=== PATIENT | female | born 1945 | race Caucasian/White ===

== ENCOUNTER 2018-08-16 18:11 | Emergency (ER) | payer MEDICARE, MEDICAID ==
[~2018-08-16] VITALS: Ht 154.9 cm; Wt 76.0 kg
[~2018-08-16 18:11] MED LIST: AMLO10TA13 PO; ATOR40TA PO; BIMA5DRO4; BRIM5DRO2; CHOL200012 PO; CLOP75TA15 PO; GLIP5TAB13 PO; LOSA100T15 PO
[2018-08-16 18:31] VITALS: BP 216/91
[2018-08-16] MEDS ORDERED: SULF1TAB49 PO (18:53)
== END 2018-08-16 19:38 | disposition home or self-care (01) ==
LOC: ER 18:11
DX: L02.413 Cutaneous abscess of right upper limb (principal); Z88.6 Allergy status to analgesic agent; Z79.899 Other long term (current) drug therapy
CPT/HCPCS: 10060; 99283

== ENCOUNTER 2019-09-02 03:29 | Emergency (ER) | payer MEDICARE, MEDICAID ==
[~2019-09-02] VITALS: Ht 157.5 cm; Wt 74.0 kg
[~2019-09-02 03:29] MED LIST changes: -LOSA100T15 PO; +LOSA100T57 PO
[2019-09-02 03:31] VITALS: BP 161/85
[2019-09-02] MEDS ORDERED: GABA-532 PO (04:03)
[2019-09-02] MEDS ORDERED: VALA10002 PO (04:03)
[2019-09-02] MEDS ORDERED: PRED20TA PO (04:03)
[2019-09-02] MEDS ORDERED: gabapentin 400mg capsule PO ONE (04:10)
[2019-09-02] MEDS ORDERED: dexamethasone 4mg tablet PO ONE (04:10)
== END 2019-09-02 04:35 | disposition home or self-care (01) ==
LOC: ER 03:30
DX: B02.9 Zoster without complications (principal); R53.1 Weakness; Z88.6 Allergy status to analgesic agent; Z79.899 Other long term (current) drug therapy
CPT/HCPCS: 99284

== ENCOUNTER 2021-05-27 07:17 | Inpatient (IN) | payer MEDICARE, MEDICAID ==
[~2021-05-27] VITALS: Ht 157.5 cm; Wt 82.0 kg
[~2021-05-27 07:17] MED LIST changes: +GABA-532 PO; +VALA10002 PO
[2021-05-27] MEDS ORDERED: dexamethasone sod phosphate 10mg/ml inj IV STA (07:38)
[2021-05-27] MEDS ORDERED: albuterol 2.5 MG/3 ML nebule NEB ONE (07:40)
[2021-05-27 08:16] LABS: BASOPHILS # (AUTO) 0.1 X10'3 (0-0.2); BASOPHILS % (AUTO) 0.8 % (0-1); EOSINOPHILS # (AUTO) 0.2 X10'3 (0-0.9); EOSINOPHILS % (AUTO) 2.2 % (0-6); HEMATOCRIT 32.8 % (35.0-45.0); HEMOGLOBIN 10.9 g/dl (12.0-16.0); LYMPHOCYTES % (AUTO) 13.5 % (21-51); MEAN CORPUSCULAR HEMOGLOBIN 30.7 PG (27.0-31.0); MEAN CORPUSCULAR HGB CONC 33.4 g/dL (33.0-36.5); MEAN CORPUSCULAR VOLUME 91.9 FL (78-98); MEAN PLATELET VOLUME 6.4 FL (7.4-10.4); MONOCYTES # (AUTO) 0.6 X10'3 (0-0.9); MONOCYTES % (AUTO) 7.8 % (2-12); NEUTROPHILS # (AUTO) 5.4 X10'3 (1.8-7.7); NEUTROPHILS % (AUTO) 75.7 % (42-75); PLATELET COUNT 555 X10'3 (140-440); RED BLOOD COUNT 3.57 X10'6 (4.20-5.60); RED CELL DISTRIBUTION WIDTH 14.7 % (11.5-14.5); WHITE BLOOD COUNT 7.1 X10'3 (4.5-11.0)
[2021-05-27 08:35] LABS: ALBUMIN 3.3 G/DL (3.4-5.0); ANION GAP 11 (8-16); BLOOD UREA NITROGEN 22 MG/DL (7-18); BUN/CREATININE RATIO 13.3 (6.6-38.0); CALCIUM 8.5 MG/DL (8.5-10.1); CHLORIDE 108 MMOL/L (99-107); CREATININE 1.65 MG/DL (0.40-0.90); GLUCOSE 147 MG/DL (70-104); POTASSIUM 3.9 MMOL/L (3.5-5.1); SODIUM 143 MMOL/L (135-145); TOTAL CARBON DIOXIDE 23.6 MMOL/L (24-32); TROPONIN I < 0.04 NG/ML (0.0-0.05); eGFR 30 ML/MIN
[2021-05-27] MEDS ORDERED: normal saline 1000ml 1,000 ML IV ONE (08:40)
[2021-05-27] MEDS ORDERED: CefTRIAXone/D5W-Rocephin 1gm 50 ML IV ONE ×2 (08:40→09:36)
[2021-05-27] MEDS ORDERED: ondansetron/PF 4mg/2ml inj IV PRN (09:25)
[2021-05-27] MEDS ORDERED: morphine 2 MG/ML inj. syringe IV PRN (09:25)
[2021-05-27] MEDS ORDERED: acetaminophen 325mg tablet PO PRN ×2 (09:25)
[2021-05-27] MEDS ORDERED: potassium Cl 40MEQ/1/2NS 520ml 520 ML IV PRN ×2 (09:25)
[2021-05-27] MEDS ORDERED: HYDROcodone/acetaminophen 5mg/325mg tablet PO PRN (09:25)
[2021-05-27] MEDS ORDERED: magnesium 4gm in 100ml NS 100 ML IV PRN (09:25)
[2021-05-27] MEDS ORDERED: magnesium 2GM in 50ml NS 50 ML IV PRN (09:25)
[2021-05-27] MEDS ORDERED: magnesium Cl slow-release 64mg tablet PO PRN (09:25)
[2021-05-27] MEDS ORDERED: potassium Cl 20 mEq SR tablet PO PRN ×2 (09:25)
[2021-05-27] MEDS ORDERED: CefTRIAXone 2gm/D5W 50ml BAG 50 ML IV SCH (09:25)
[2021-05-27] MEDS ORDERED: metoprolol tartrate 25mg tablet PO ONE (09:35)
[2021-05-27] MEDS: furosemide 40mg/4ml inj IV SCH (10:07)
[2021-05-27] MEDS: azithromycin/NS 500mg/250ml 250 ML IV SCH (10:07)
[2021-05-27] MEDS: nicotine 14mg patch - 24hr TD SCH (10:12)
[2021-05-27] MEDS ORDERED: AMLO5TAB16 PO (10:14)
[2021-05-27] MEDS ORDERED: ALBU18HF2 PO (10:14)
[2021-05-27] MEDS ORDERED: LOSA1TAB41 PO (10:14)
[2021-05-27] MEDS ORDERED: ATOR-2 PO (10:14)
[2021-05-27] MEDS ORDERED: CLOP75TA34 PO (10:14)
[2021-05-27] MEDS ORDERED: FURO20TA4 PO (10:14)
[2021-05-27] MEDS ORDERED: ALLO100T PO (10:14)
[2021-05-27] MEDS ORDERED: DOXA2TAB6 PO (10:14)
[2021-05-27] MEDS ORDERED: SOTA80TA73 PO (10:14)
--- NOTE | 2021-05-27 10:14 | NUR ---
PATIENT STATES SHE IS MORE SOB AND HAD A COUGHING FIT. SP02 LOW 80S. O2 INCREASED TO 6L. RT CALLED FOR BREATHING TREATMENT AND LASIX ADMINISTERED.
[2021-05-27] MEDS ORDERED: POTA8TAB58 PO (10:15)
[2021-05-27 10:28] LABS: ABG BASE EXCESS -3.8 mmol/L (-2.0-2.0); ABG HCO3 21.3 mmol/L (22.0-26.0); ABG OXYGEN SATURATION 89.8 % (94-97); ABG PCO2 (T) 38.2 mmHg (32.0-45.0); ABG PO2 (T) 60.5 mmHg (75.0-100.0); ALLEN'S TEST POSITIVE; FCOHb 0.1 % (0.0-3.9); FLOW 5 L/min; FMetHb 0.2 % (0.0-1.5); FO2Hb 89.5 % (94-97); PATIENT TEMPERATURE 36.5; TOTAL HEMOGLOBIN 12.1 G/dl (12.0-16.0)
[2021-05-27] MEDS ORDERED: albuterol 2.5 MG/3 ML nebule NEB PRN ×2 (12:15→15:15)
[2021-05-27] MEDS ORDERED: CALC-97 PO (12:55)
[2021-05-27] MEDS ORDERED: CHOL100024 PO (12:55)
[2021-05-27] MEDS ORDERED: GLIP5TAB13 PO (12:55)
[2021-05-27] MEDS ORDERED: NICO-630 TOP (12:55)
[2021-05-27] MEDS ORDERED: ALBUTEROL INHALER 1 PUFF/90 MCG INHALER IH PRN (15:05)
--- NOTE | 2021-05-27 16:01 | NUR ---
Patient in room PCU 3024. I have received report from Jayashree ECHEVARRIA ED and had the opportunity to ask questions and assume patient care.
--- NOTE | 2021-05-27 18:15 | NUR ---
Problems reprioritized. Patient report given, questions answered & plan of care reviewed with Fabi ECHEVARRIA.
[2021-05-27 19:00] VITALS: BP 138/81
[2021-05-27] MEDS: K and/or MAG REPLACEMENT MC SCH (20:00)
[2021-05-27 20:02] LABS: HEMOGLOBIN A1C 7.6 % (4.5-6.2)
[2021-05-27] MEDS: lactobacillus rhamnosus 10,000 MMU CELLS/CAPSULE PO SCH (21:33)
[2021-05-27] MEDS: sotalol 80mg tablet PO SCH (21:34)
[2021-05-27] MEDS: doxazosin mesylate 2mg tablet PO SCH (21:34)
[2021-05-27] MEDS: heparin, porcine 5000 units/ml vial SQ SCH (21:35)
[2021-05-27 23:00] VITALS: BP 127/70
[2021-05-27 23:37] VITALS: BP 138/81
[2021-05-28 02:43] VITALS: BP 134/76
[2021-05-28 06:25] LABS: BASOPHILS % (AUTO) 0 % (0-1); EOSINOPHILS % (AUTO) 0 % (0-6); HEMATOCRIT 32.8 % (35.0-45.0); HEMOGLOBIN 10.9 g/dl (12.0-16.0); LYMPHOCYTES # (AUTO) 0.6 X10'3 (1.1-4.8); LYMPHOCYTES % (AUTO) 7.8 % (21-51); MEAN CORPUSCULAR HEMOGLOBIN 30.6 PG (27.0-31.0); MEAN CORPUSCULAR HGB CONC 33.2 g/dL (33.0-36.5); MEAN CORPUSCULAR VOLUME 92.2 FL (78-98); MEAN PLATELET VOLUME 6.8 FL (7.4-10.4); MONOCYTES # (AUTO) 0.3 X10'3 (0-0.9); MONOCYTES % (AUTO) 4.1 % (2-12); NEUTROPHILS # (AUTO) 6.3 X10'3 (1.8-7.7); NEUTROPHILS % (AUTO) 88.1 % (42-75); PLATELET COUNT 507 X10'3 (140-440); RED BLOOD COUNT 3.55 X10'6 (4.20-5.60); RED CELL DISTRIBUTION WIDTH 14.7 % (11.5-14.5); WHITE BLOOD COUNT 7.1 X10'3 (4.5-11.0)
[2021-05-28 06:29] LABS: ALANINE AMINOTRANSFERASE 31 U/L (12-78); ALBUMIN/GLOBULIN RATIO 0.9 (1.1-1.5); ALKALINE PHOSPHATASE 158 IU/L (46-116); ANION GAP 12 (8-16); ASPARTATE AMINO TRANSFERASE 15 U/L (10-37); BILIRUBIN,TOTAL 0.2 MG/DL (0.1-1.0); BLOOD UREA NITROGEN 27 MG/DL (7-18); BUN/CREATININE RATIO 16.8 (6.6-38.0); CALCIUM 8.4 MG/DL (8.5-10.1); CHLORIDE 108 MMOL/L (99-107); CREATININE 1.61 MG/DL (0.40-0.90); GLUCOSE 194 MG/DL (70-104); MAGNESIUM 2.2 MG/DL (1.5-2.4); POTASSIUM 4.3 MMOL/L (3.5-5.1); SODIUM 142 MMOL/L (135-145); TOTAL CARBON DIOXIDE 22.4 MMOL/L (24-32); TOTAL PROTEIN 6.3 G/DL (6.4-8.2); eGFR 31 ML/MIN
--- NOTE | 2021-05-28 06:43 | NUR ---
Patient in room PCU 3024. I have received report from Fabi ECHEVARRIA and had the opportunity to ask questions and assume patient care.
[2021-05-28 07:00] VITALS: BP 121/57
[2021-05-28] MEDS: furosemide 40mg/4ml inj IV SCH (07:38)
[2021-05-28] MEDS: atorvastatin 20mg tablet PO SCH (07:38)
[2021-05-28] MEDS: amLODIPine 5mg tablet PO SCH (07:39)
[2021-05-28] MEDS: heparin, porcine 5000 units/ml vial SQ SCH ×2 (07:39→20:17)
[2021-05-28] MEDS: allopurinol 100mg tablet PO SCH ×2 (07:39→07:40)
[2021-05-28] MEDS: clopidogrel 75mg tablet PO SCH (07:39)
[2021-05-28] MEDS: lactobacillus rhamnosus 10,000 MMU CELLS/CAPSULE PO SCH ×2 (07:39→19:57)
[2021-05-28] MEDS: nicotine 14mg patch - 24hr TD SCH (07:39)
[2021-05-28] MEDS: sotalol 80mg tablet PO SCH ×2 (07:40→20:17)
[2021-05-28] MEDS: CefTRIAXone 2gm/D5W 50ml BAG 50 ML IV SCH (07:40)
[2021-05-28] MEDS: nicotine 7mg patch - 24hr TD SCH (08:00)
[2021-05-28] MEDS: K and/or MAG REPLACEMENT MC SCH ×2 (08:00→20:00)
[2021-05-28] MEDS: azithromycin/NS 500mg/250ml 250 ML IV SCH (09:01)
--- NOTE | 2021-05-28 09:39 | NUR ---
Paged RT Re: Irene Contreras RM [id number]. Pt desating low 80s May we have a treatment please. Thank you Saba ECHEVARRIA [phone]
[2021-05-28] MEDS ORDERED: glucagon, human recombinant 1mg kit SUBCUT PRN (09:45)
[2021-05-28] MEDS ORDERED: dextrose ORAL solution 15 GM/59 ML bottle PO PRN ×2 (09:45)
[2021-05-28] MEDS ORDERED: MESSAGE TO PHARMACY PO ONE (09:45)
[2021-05-28] MEDS ORDERED: dextrose 50%-water 50ml dispensing syringe IV PRN ×2 (09:45)
[2021-05-28] MEDS: albuterol 2.5 MG/3 ML nebule NEB SCH ×5 (09:52→23:22)
--- NOTE | 2021-05-28 09:59 | NUR ---
Md at bedside with nurse and patient. MD aware of patient respiratory distress. On 8L nasal canula. Stats 88%. RT paged and in room. Nonrebreather placed on patient. New orders accuchecks. Hyper/hypoglycemic protocols. R/T related to history of DM2 and A1C 7.6. MD will input new medications. PT aware of patient respiratory distress when ambulating. Recommendation minimal PT until patient can tolerate it. MD will contact INR for possible drainage. Will continue to monitor.
--- NOTE | 2021-05-28 10:25 | NUR ---
Noted pt with T2DM, well controlled for age with A1c 7.6%. DM education not warranted at this time. Will continue to follow. Addendum: 05/28/21 at [address] Amended: Links added.
[2021-05-28 11:00] VITALS: BP 114/61
[2021-05-28] MEDS: methylPREDNISolone sod succ 125mg/2ml vial IV SCH ×2 (13:29→20:17)
[2021-05-28] MEDS ORDERED: ondansetron 4mg rapidly disintigrating tab PO PRN (14:00)
--- NOTE | 2021-05-28 17:59 | NUR ---
Problems reprioritized. Patient report given, questions answered & plan of care reviewed with Fabi ECHEVARRIA.
[2021-05-28 19:00] VITALS: BP 106/59
[2021-05-28] MEDS: insulin Lispro (HumaLOG) vial - multi-dose SQ SCH (19:52)
[2021-05-28] MEDS: doxazosin mesylate 2mg tablet PO SCH (20:17)
[2021-05-28] MEDS: insulin glargine (Lantus) pen - multi-dose SQ SCH (21:00)
[2021-05-28 23:00] VITALS: BP 134/71
[2021-05-29 03:00] VITALS: BP_SYST 108; BP_SYST 134; BP_DIAS 59; BP_DIAS 71
[2021-05-29] MEDS: albuterol 2.5 MG/3 ML nebule NEB SCH ×6 (03:26→23:50)
[2021-05-29 06:00] VITALS: BP 144/72
--- NOTE | 2021-05-29 06:30 | NUR ---
Patient in room PCU 3024. I have received report from Fabi ECHEVARRIA and had the opportunity to ask questions and assume patient care.
[2021-05-29 06:56] LABS: BASOPHILS % (AUTO) 0 % (0-1); EOSINOPHILS % (AUTO) 0 % (0-6); HEMATOCRIT 33.5 % (35.0-45.0); HEMOGLOBIN 11.1 g/dl (12.0-16.0); LYMPHOCYTES # (AUTO) 0.6 X10'3 (1.1-4.8); LYMPHOCYTES % (AUTO) 7.4 % (21-51); MEAN CORPUSCULAR HEMOGLOBIN 30.3 PG (27.0-31.0); MEAN CORPUSCULAR HGB CONC 33.1 g/dL (33.0-36.5); MEAN CORPUSCULAR VOLUME 91.5 FL (78-98); MEAN PLATELET VOLUME 6.7 FL (7.4-10.4); MONOCYTES # (AUTO) 0.1 X10'3 (0-0.9); MONOCYTES % (AUTO) 0.8 % (2-12); NEUTROPHILS # (AUTO) 7.7 X10'3 (1.8-7.7); NEUTROPHILS % (AUTO) 91.8 % (42-75); PLATELET COUNT 539 X10'3 (140-440); RED BLOOD COUNT 3.66 X10'6 (4.20-5.60); RED CELL DISTRIBUTION WIDTH 14.9 % (11.5-14.5); WHITE BLOOD COUNT 8.4 X10'3 (4.5-11.0)
[2021-05-29 07:01] LABS: ALANINE AMINOTRANSFERASE 35 U/L (12-78); ALBUMIN 3.3 G/DL (3.4-5.0); ALKALINE PHOSPHATASE 156 IU/L (46-116); ANION GAP 13 (8-16); ASPARTATE AMINO TRANSFERASE 15 U/L (10-37); BILIRUBIN,TOTAL 0.2 MG/DL (0.1-1.0); BLOOD UREA NITROGEN 38 MG/DL (7-18); CALCIUM 8.7 MG/DL (8.5-10.1); CHLORIDE 108 MMOL/L (99-107); CREATININE 1.65 MG/DL (0.40-0.90); GLUCOSE 199 MG/DL (70-104); MAGNESIUM 2.2 MG/DL (1.5-2.4); POTASSIUM 4.5 MMOL/L (3.5-5.1); SODIUM 144 MMOL/L (135-145); TOTAL CARBON DIOXIDE 22.9 MMOL/L (24-32); TOTAL PROTEIN 6.7 G/DL (6.4-8.2); eGFR 30 ML/MIN
[2021-05-29] MEDS: K and/or MAG REPLACEMENT MC SCH ×2 (08:00→20:00)
[2021-05-29] MEDS: CefTRIAXone 2gm/D5W 50ml BAG 50 ML IV SCH (08:18)
[2021-05-29] MEDS: amLODIPine 5mg tablet PO SCH (08:18)
[2021-05-29] MEDS: clopidogrel 75mg tablet PO SCH (08:19)
[2021-05-29] MEDS: lactobacillus rhamnosus 10,000 MMU CELLS/CAPSULE PO SCH ×2 (08:19→20:35)
[2021-05-29] MEDS: atorvastatin 20mg tablet PO SCH (08:20)
[2021-05-29] MEDS: allopurinol 100mg tablet PO SCH (08:21)
[2021-05-29] MEDS: nicotine 7mg patch - 24hr TD SCH (08:21)
[2021-05-29] MEDS: furosemide 40mg/4ml inj IV SCH (08:21)
[2021-05-29] MEDS: methylPREDNISolone sod succ 125mg/2ml vial IV SCH ×2 (08:21→20:38)
[2021-05-29] MEDS: heparin, porcine 5000 units/ml vial SQ SCH ×2 (08:21→20:37)
[2021-05-29] MEDS: insulin Lispro (HumaLOG) vial - multi-dose SQ SCH ×2 (09:04→14:01)
[2021-05-29] MEDS: azithromycin/NS 500mg/250ml 250 ML IV SCH (09:27)
[2021-05-29] MEDS: sotalol 80mg tablet PO SCH ×2 (09:50→20:36)
[2021-05-29] MEDS: nicotine 14mg patch - 24hr TD SCH (10:07)
[2021-05-29 11:00] VITALS: BP 117/73
[2021-05-29 15:00] VITALS: BP 127/70
[2021-05-29 15:19] LABS: D-DIMER 0.46 MG/L FEU (0-0.50)
--- NOTE | 2021-05-29 19:03 | NUR ---
Problems reprioritized. Patient report given, questions answered & plan of care reviewed with Jennifer ECHEVARRIA. Patient stable at transfer of care.
[2021-05-29] MEDS: doxazosin mesylate 2mg tablet PO SCH (20:35)
[2021-05-29] MEDS: insulin glargine (Lantus) pen - multi-dose SQ SCH (21:00)
[2021-05-29 22:00] VITALS: BP 141/64
[2021-05-30 02:00] VITALS: BP 132/60
--- NOTE | 2021-05-30 03:42 | NUR ---
Pt in bed resting no signs of distress noted will continue to monitor and report changes
[2021-05-30] MEDS: albuterol 2.5 MG/3 ML nebule NEB SCH ×6 (03:54→23:51)
[2021-05-30 06:00] VITALS: BP 134/75
--- NOTE | 2021-05-30 06:31 | NUR ---
Patient in room PCU 3024. I have received report from leah hall and had the opportunity to ask questions and assume patient care.
--- NOTE | 2021-05-30 06:34 | NUR ---
Problems reprioritized. Patient report given, questions answered & plan of care reviewed with Dipti ECHEVARRIA .
[2021-05-30 06:51] LABS: BASOPHILS % (AUTO) 0 % (0-1); EOSINOPHILS % (AUTO) 0 % (0-6); HEMATOCRIT 32.6 % (35.0-45.0); HEMOGLOBIN 10.9 g/dl (12.0-16.0); LYMPHOCYTES # (AUTO) 0.6 X10'3 (1.1-4.8); LYMPHOCYTES % (AUTO) 6.1 % (21-51); MEAN CORPUSCULAR HEMOGLOBIN 30.3 PG (27.0-31.0); MEAN CORPUSCULAR HGB CONC 33.3 g/dL (33.0-36.5); MEAN CORPUSCULAR VOLUME 90.9 FL (78-98); MEAN PLATELET VOLUME 6.9 FL (7.4-10.4); MONOCYTES # (AUTO) 0.1 X10'3 (0-0.9); MONOCYTES % (AUTO) 1.5 % (2-12); NEUTROPHILS % (AUTO) 92.4 % (42-75); PLATELET COUNT 499 X10'3 (140-440); RED BLOOD COUNT 3.59 X10'6 (4.20-5.60); RED CELL DISTRIBUTION WIDTH 14.7 % (11.5-14.5); WHITE BLOOD COUNT 9.8 X10'3 (4.5-11.0)
[2021-05-30 07:15] LABS: ALANINE AMINOTRANSFERASE 35 U/L (12-78); ALBUMIN 3.2 G/DL (3.4-5.0); ALKALINE PHOSPHATASE 142 IU/L (46-116); ANION GAP 12 (8-16); ASPARTATE AMINO TRANSFERASE 15 U/L (10-37); BILIRUBIN,TOTAL 0.2 MG/DL (0.1-1.0); BLOOD UREA NITROGEN 45 MG/DL (7-18); BUN/CREATININE RATIO 26.5 (6.6-38.0); CALCIUM 8.2 MG/DL (8.5-10.1); CHLORIDE 107 MMOL/L (99-107); GLUCOSE 181 MG/DL (70-104); MAGNESIUM 2.2 MG/DL (1.5-2.4); POTASSIUM 4.3 MMOL/L (3.5-5.1); SODIUM 142 MMOL/L (135-145); TOTAL CARBON DIOXIDE 22.7 MMOL/L (24-32); TOTAL PROTEIN 6.3 G/DL (6.4-8.2); eGFR 29 ML/MIN
[2021-05-30] MEDS: allopurinol 100mg tablet PO SCH (08:00)
[2021-05-30] MEDS: K and/or MAG REPLACEMENT MC SCH ×2 (08:00→20:10)
[2021-05-30] MEDS: CefTRIAXone 2gm/D5W 50ml BAG 50 ML IV SCH (08:31)
[2021-05-30] MEDS: atorvastatin 20mg tablet PO SCH (08:31)
[2021-05-30] MEDS: lactobacillus rhamnosus 10,000 MMU CELLS/CAPSULE PO SCH ×2 (08:32→19:53)
[2021-05-30] MEDS: clopidogrel 75mg tablet PO SCH (08:32)
[2021-05-30] MEDS: sotalol 80mg tablet PO SCH ×2 (08:32→19:53)
[2021-05-30] MEDS: amLODIPine 5mg tablet PO SCH (08:33)
[2021-05-30] MEDS: heparin, porcine 5000 units/ml vial SQ SCH ×2 (08:34→19:53)
[2021-05-30] MEDS: furosemide 40mg/4ml inj IV SCH ×2 (08:35→19:54)
[2021-05-30] MEDS: nicotine 14mg patch - 24hr TD SCH (08:36)
[2021-05-30] MEDS: methylPREDNISolone sod succ 125mg/2ml vial IV SCH ×2 (08:36→19:54)
[2021-05-30] MEDS: nicotine 7mg patch - 24hr TD SCH (08:37)
[2021-05-30] MEDS: insulin Lispro (HumaLOG) vial - multi-dose SQ SCH ×2 (09:33→13:44)
[2021-05-30 11:00] VITALS: BP 118/80
[2021-05-30] MEDS: azithromycin/NS 500mg/250ml 250 ML IV SCH (12:09)
[2021-05-30 15:00] VITALS: BP 118/80
[2021-05-30 18:00] VITALS: BP 134/57
--- NOTE | 2021-05-30 18:33 | NUR ---
Problems reprioritized. Patient report given, questions answered & plan of care reviewed with leah hall.
[2021-05-30] MEDS: doxazosin mesylate 2mg tablet PO SCH (20:07)
[2021-05-30] MEDS: insulin glargine (Lantus) pen - multi-dose SQ SCH (21:12)
[2021-05-30 22:00] VITALS: BP 108/74
[2021-05-31 02:00] VITALS: BP 128/65
[2021-05-31] MEDS: albuterol 2.5 MG/3 ML nebule NEB SCH ×3 (02:36→12:00)
[2021-05-31 06:00] VITALS: BP 126/65
--- NOTE | 2021-05-31 06:37 | NUR ---
Problems reprioritized. Patient report given, questions answered & plan of care reviewed with Dipti ECHEVARRIA.
--- NOTE | 2021-05-31 06:38 | NUR ---
Patient in room PCU 3024. I have received report fromWALE BEDOYA and had the opportunity to ask questions and assume patient care.
[2021-05-31 06:51] LABS: BASOPHILS % (AUTO) 0.1 % (0-1); EOSINOPHILS % (AUTO) 0 % (0-6); HEMATOCRIT 34.5 % (35.0-45.0); HEMOGLOBIN 11.6 g/dl (12.0-16.0); LYMPHOCYTES # (AUTO) 0.6 X10'3 (1.1-4.8); LYMPHOCYTES % (AUTO) 7.5 % (21-51); MEAN CORPUSCULAR HEMOGLOBIN 30.4 PG (27.0-31.0); MEAN CORPUSCULAR HGB CONC 33.5 g/dL (33.0-36.5); MEAN CORPUSCULAR VOLUME 90.8 FL (78-98); MEAN PLATELET VOLUME 7.1 FL (7.4-10.4); MONOCYTES # (AUTO) 0.2 X10'3 (0-0.9); MONOCYTES % (AUTO) 2.1 % (2-12); NEUTROPHILS # (AUTO) 7.7 X10'3 (1.8-7.7); NEUTROPHILS % (AUTO) 90.3 % (42-75); PLATELET COUNT 493 X10'3 (140-440); RED CELL DISTRIBUTION WIDTH 14.9 % (11.5-14.5); WHITE BLOOD COUNT 8.6 X10'3 (4.5-11.0)
[2021-05-31 07:31] LABS: ALANINE AMINOTRANSFERASE 42 U/L (12-78); ALBUMIN 3.4 G/DL (3.4-5.0); ALBUMIN/GLOBULIN RATIO 1.1 (1.1-1.5); ALKALINE PHOSPHATASE 142 IU/L (46-116); ANION GAP 14 (8-16); ASPARTATE AMINO TRANSFERASE 16 U/L (10-37); BILIRUBIN,TOTAL 0.2 MG/DL (0.1-1.0); BLOOD UREA NITROGEN 55 MG/DL (7-18); BUN/CREATININE RATIO 28.2 (6.6-38.0); CALCIUM 8.1 MG/DL (8.5-10.1); CHLORIDE 105 MMOL/L (99-107); CREATININE 1.95 MG/DL (0.40-0.90); GLUCOSE 163 MG/DL (70-104); MAGNESIUM 2.3 MG/DL (1.5-2.4); SODIUM 143 MMOL/L (135-145); TOTAL CARBON DIOXIDE 23.6 MMOL/L (24-32); TOTAL PROTEIN 6.6 G/DL (6.4-8.2); eGFR 25 ML/MIN
[2021-05-31] MEDS: azithromycin/NS 500mg/250ml 250 ML IV SCH (08:00)
[2021-05-31] MEDS: nicotine 7mg patch - 24hr TD SCH (08:00)
[2021-05-31] MEDS: nicotine 14mg patch - 24hr TD SCH (08:00)
[2021-05-31] MEDS: K and/or MAG REPLACEMENT MC SCH (08:00)
[2021-05-31] MEDS: methylPREDNISolone sod succ 125mg/2ml vial IV SCH (09:24)
[2021-05-31] MEDS: CefTRIAXone 2gm/D5W 50ml BAG 50 ML IV SCH (09:24)
[2021-05-31] MEDS: heparin, porcine 5000 units/ml vial SQ SCH (09:25)
[2021-05-31] MEDS: atorvastatin 20mg tablet PO SCH (09:27)
[2021-05-31] MEDS: clopidogrel 75mg tablet PO SCH (09:27)
[2021-05-31] MEDS: lactobacillus rhamnosus 10,000 MMU CELLS/CAPSULE PO SCH (09:27)
[2021-05-31] MEDS: amLODIPine 5mg tablet PO SCH (09:28)
[2021-05-31] MEDS: sotalol 80mg tablet PO SCH (09:28)
[2021-05-31] MEDS: allopurinol 100mg tablet PO SCH (09:29)
[2021-05-31] MEDS: furosemide 40mg/4ml inj IV SCH (09:29)
[2021-05-31 11:00] VITALS: BP 132/52
[2021-05-31] MEDS ORDERED: NUT.TX.GLUC.INTOLER,LAC-FR,SOY (GLUCERNA) 237 ML PO SCH (13:00)
--- NOTE | 2021-05-31 14:11 | NUR ---
Initial: Pt admit DX acute hypoxemic respiratory failure possibly r/t PNA and CHF, bilateral pleural effusions, HTN, and anemia of chronic disease per MD note. PO 50% initial SB6/carb controlled/heart healthy meals now declines to 25% meals past two days partially meeting needs. Pt is legally blind though requiring minimum assistance w/ meals per EMR. RD recommends Glucerna TIDWM for additional protein/kcals; MD notified. LBM 05/30 per EMR. Will continue to monitor for additional protein/kcal needs. Rec: 1. continue carb controlled/heart healthy/SB6 diet per MD; encourage PO 2. Glucerna TIDWM; pending MD verification in EMR; encourage PO 3. routine bowel care 4. scaled wt this admit; subsequent weekly wts Addendum: 05/31/21 at [address] Amended: Links added.
[2021-05-31] MEDS: insulin Lispro (HumaLOG) vial - multi-dose SQ SCH (14:40)
[2021-05-31 15:00] VITALS: BP 143/81
[2021-05-31] MEDS ORDERED: albuterol 2.5 MG/3 ML nebule NEB SCH (15:00)
--- NOTE | 2021-05-31 18:00 | NUR ---
report phoned to leah bravo @ [facility] pt transferred via gurney with anthony cargo with all belongings@1800
== END 2021-05-31 18:20 | DRG 193 ==
LOC: ER 07:18 → ED HOLD 09:31 → PCU 3S 15:55
PROVIDERS: ADMIT Internal Medicine; ATTEND Internal Medicine
PROC: 5A0945A Assistance with Respiratory Ventilation, 24-96 Consecutive Hours, High Flow/Velocity Cannula (ICD-10-PCS; principal; 2021-05-28)
DX: J18.9 Pneumonia, unspecified organism (principal); J96.01 Acute respiratory failure with hypoxia; N17.9 Acute kidney failure, unspecified; I31.3 Pericardial effusion (noninflammatory); I11.0 Hypertensive heart disease with heart failure; E11.9 Type 2 diabetes mellitus without complications; E78.5 Hyperlipidemia, unspecified; I50.813 Acute on chronic right heart failure; Z20.822 Contact with and (suspected) exposure to COVID-19; H54.8 Legal blindness, as defined in USA; I48.0 Paroxysmal atrial fibrillation; D64.9 Anemia, unspecified; F17.200 Nicotine dependence, unspecified, uncomplicated; Z79.01 Long term (current) use of anticoagulants; Z79.02 Long term (current) use of antithrombotics/antiplatelets; Z79.899 Other long term (current) drug therapy; Z88.6 Allergy status to analgesic agent; Z91.030 Bee allergy status; Z71.6 Tobacco abuse counseling
CPT/HCPCS: 36415; 36600; 71045; 71250; 76937; 80048; 80053; 82803; 82948; 83036; 83605; 83735; 83880; 84145; 84484; 85018; 85025; 85379; 87040; 87081; 87635; 93005; 93306; 94640; 94760; 96374; 96375; 97110; 97112; 97161; 97530; 99291; C9803; G0378; J0456; J0696; J1100; J1644; J1815; J1940; J2930; J7030

== ENCOUNTER 2021-07-28 04:50 | Inpatient (IN) | payer MEDICARE, MEDICAID ==
[~2021-07-28] VITALS: Ht 165.1 cm; Wt 73.2 kg
[~2021-07-28 04:50] MED LIST changes: +ALBU18HF2 PO; +ALLO100T PO; -AMLO10TA13 PO; +AMLO5TAB16 PO; +ATOR-2 PO; -ATOR40TA PO; -BIMA5DRO4; -BRIM5DRO2; +CALC-97 PO; +CHOL100024 PO; -CHOL200012 PO; -CLOP75TA15 PO; +CLOP75TA34 PO; +DOXA2TAB6 PO; +FURO20TA4 PO; -GABA-532 PO; -LOSA100T57 PO; +LOSA1TAB41 PO; +NICO-630 TOP; +POTA8TAB58 PO; +SOTA80TA73 PO; -VALA10002 PO
[2021-07-28 06:46] LABS: BASOPHILS # (AUTO) 0.1 X10'3 (0-0.2); EOSINOPHILS # (AUTO) 0.1 X10'3 (0-0.9); EOSINOPHILS % (AUTO) 1.5 % (0-6); HEMOGLOBIN 9.4 g/dl (12.0-16.0); LYMPHOCYTES # (AUTO) 0.8 X10'3 (1.1-4.8); LYMPHOCYTES % (AUTO) 10.4 % (21-51); MEAN CORPUSCULAR HEMOGLOBIN 29.1 PG (27.0-31.0); MEAN CORPUSCULAR HGB CONC 33.4 g/dL (33.0-36.5); MEAN PLATELET VOLUME 6.6 FL (7.4-10.4); MONOCYTES # (AUTO) 0.6 X10'3 (0-0.9); MONOCYTES % (AUTO) 7.6 % (2-12); NEUTROPHILS # (AUTO) 5.8 X10'3 (1.8-7.7); NEUTROPHILS % (AUTO) 79.5 % (42-75); PLATELET COUNT 400 X10'3 (140-440); RED BLOOD COUNT 3.22 X10'6 (4.20-5.60); RED CELL DISTRIBUTION WIDTH 16.5 % (11.5-14.5); WHITE BLOOD COUNT 7.3 X10'3 (4.5-11.0)
[2021-07-28 07:11] LABS: ALANINE AMINOTRANSFERASE 11 U/L (12-78); ALBUMIN 2.4 G/DL (3.4-5.0); ALBUMIN/GLOBULIN RATIO 0.9 (1.1-1.5); ALKALINE PHOSPHATASE 118 IU/L (46-116); ANION GAP 13 (8-16); ASPARTATE AMINO TRANSFERASE 15 U/L (10-37); BILIRUBIN,TOTAL 0.3 MG/DL (0.1-1.0); BLOOD UREA NITROGEN 20 MG/DL (7-18); BUN/CREATININE RATIO 14.5 (6.6-38.0); CALCIUM 7.2 MG/DL (8.5-10.1); CHLORIDE 110 MMOL/L (99-107); CREATININE 1.38 MG/DL (0.40-0.90); GLUCOSE 99 MG/DL (70-104); POTASSIUM 3.6 MMOL/L (3.5-5.1); SODIUM 144 MMOL/L (135-145); TOTAL CARBON DIOXIDE 21.2 MMOL/L (24-32); eGFR 37 ML/MIN
[2021-07-28 07:18] LABS: MAGNESIUM 1.6 MG/DL (1.5-2.4)
[2021-07-28] MEDS ORDERED: furosemide 10 MG/1 ML 10ml inj IV ONE (09:00)
[2021-07-28] MEDS ORDERED: HYDROcodone/acetaminophen 5mg/325mg tablet PO PRN (09:30)
[2021-07-28] MEDS ORDERED: potassium Cl 20 mEq SR tablet PO PRN ×2 (09:30)
[2021-07-28] MEDS ORDERED: mag hydrox/Alum hydrox/simeth 30ml oral suspension PO PRN (09:30)
[2021-07-28] MEDS ORDERED: potassium Cl 40MEQ/1/2NS 520ml 520 ML IV PRN ×2 (09:30)
[2021-07-28] MEDS ORDERED: morphine 2 MG/ML inj. syringe IV PRN (09:30)
[2021-07-28] MEDS ORDERED: magnesium Cl slow-release 64mg tablet PO PRN (09:30)
[2021-07-28] MEDS ORDERED: acetaminophen 325mg tablet PO PRN ×2 (09:30)
[2021-07-28] MEDS ORDERED: magnesium 4gm in 100ml NS 100 ML IV PRN (09:30)
[2021-07-28] MEDS ORDERED: magnesium 2GM in 50ml NS 50 ML IV PRN (09:30)
[2021-07-28] MEDS: normal saline 1000ml 1,000 ML IV SCH ×2 (09:30→22:29)
[2021-07-28] MEDS ORDERED: ondansetron/PF 4mg/2ml inj IV PRN (09:30)
[2021-07-28] MEDS: acetylcysteine 200 MG/ml 4ml vial PO SCH ×2 (09:40→21:46)
[2021-07-28 09:53] LABS: ABG BASE EXCESS 1.5 mmol/L (-2.0-2.0); ABG HCO3 25.5 mmol/L (22.0-26.0); ABG OXYGEN SATURATION 85.8 % (94-97); ABG PCO2 (T) 37.8 mmHg (32.0-45.0); ABG PO2 (T) 49.5 mmHg (75.0-100.0); ALLEN'S TEST POSITIVE; FCOHb 0.4 % (0.0-3.9); FLOW 2 L/min; FMetHb 0.3 % (0.0-1.5); FO2Hb 85.2 % (94-97); TOTAL HEMOGLOBIN 11.5 G/dl (12.0-16.0)
[2021-07-28] MEDS ORDERED: iohexol 300mg/ml 100ml inj. ONE (09:54)
[2021-07-28] MEDS ORDERED: acetylcysteine 200 MG/ml 4ml vial PO ONE (10:20)
--- NOTE | 2021-07-28 12:28 | NUR ---
pt to ct scan via [facility]
[2021-07-28] MEDS: MESSAGE TO NURSING PO SCH (12:51)
--- NOTE | 2021-07-28 13:29 | NUR ---
pt enjoying lunch tray no distress noted
[2021-07-28] MEDS: albuterol 2.5 MG/3 ML nebule NEB SCH ×2 (14:27→21:46)
--- NOTE | 2021-07-28 18:30 | NUR ---
ASSUMED CARE OF PT, PT SITTING UP IN BED EATING DINNER
[2021-07-28 20:00] VITALS: BP 131/66
[2021-07-28] MEDS: K and/or MAG REPLACEMENT MC SCH (20:00)
[2021-07-28] MEDS ORDERED: FLU VACC QS2021-22(6MOS UP)/PF 60 MCG/0.5 ML SYRINGE IM ONE (20:08)
[2021-07-28] MEDS ORDERED: temazepam 15mg capsule PO PRN (21:00)
[2021-07-28] MEDS: heparin, porcine 5000 units/ml vial SQ SCH (21:48)
[2021-07-28] MEDS: furosemide 40mg/4ml inj IV SCH (21:48)
[2021-07-28] MEDS: methylPREDNISolone sod succ 125mg/2ml vial IV SCH (21:48)
[2021-07-28 22:00] VITALS: BP 115/72
[2021-07-29 02:00] VITALS: BP 116/57
[2021-07-29] MEDS: albuterol 2.5 MG/3 ML nebule NEB SCH ×4 (03:19→20:33)
[2021-07-29 06:00] VITALS: BP 114/75
[2021-07-29] MEDS ORDERED: FLU VACC QS2021-22(6MOS UP)/PF 60 MCG/0.5 ML SYRINGE IM ONE (08:00)
[2021-07-29] MEDS: methylPREDNISolone sod succ 125mg/2ml vial IV SCH ×2 (08:15→16:13)
[2021-07-29] MEDS: heparin, porcine 5000 units/ml vial SQ SCH ×2 (08:15→19:52)
[2021-07-29] MEDS: furosemide 40mg/4ml inj IV SCH ×2 (08:15→16:10)
[2021-07-29] MEDS: CefTRIAXone 2gm/D5W 50ml BAG 50 ML IV SCH (08:15)
[2021-07-29] MEDS: acetylcysteine 200 MG/ml 4ml vial PO SCH ×2 (08:40→19:51)
--- NOTE | 2021-07-29 09:52 | NUR ---
DM consult: Pt with T2DM, well controlled for age with A1c 8.0%, BG 99 mg/dL on admit. DM education not warranted at this time. Will continue to follow. Addendum: 07/29/21 at [address] Amended: Links added.
[2021-07-29] MEDS: MESSAGE TO NURSING PO SCH (10:00)
[2021-07-29 11:00] VITALS: BP 165/69
--- NOTE | 2021-07-29 11:22 | NUR ---
O2 Sat at rest on room air:_88__% If below 89%: Recovery O2 Sat at rest on _4__LPM:__93_%:___% via (mask/nasal cannula, etc..) No further documentation is necessary. If O2 Sat did not drop below 89% on room air,ambulate patient on room air. O2 Sat while ambulating on room air:___% Recovery O2 Sat while ambulating on ___LPM:___% No further documentation is necessary. If patient does not drop below 89% while ambulating, he/she does not qualify for home O2.
[2021-07-29 13:29] LABS: BASOPHILS % (AUTO) 0.5 % (0-1); EOSINOPHILS % (AUTO) 0 % (0-6); HEMATOCRIT 35.7 % (35.0-45.0); HEMOGLOBIN 11.4 g/dl (12.0-16.0); LYMPHOCYTES # (AUTO) 0.4 X10'3 (1.1-4.8); LYMPHOCYTES % (AUTO) 8.4 % (21-51); MEAN CORPUSCULAR HEMOGLOBIN 27.9 PG (27.0-31.0); MEAN CORPUSCULAR HGB CONC 31.9 g/dL (33.0-36.5); MEAN CORPUSCULAR VOLUME 87.6 FL (78-98); MEAN PLATELET VOLUME 7.1 FL (7.4-10.4); MONOCYTES % (AUTO) 0.9 % (2-12); NEUTROPHILS # (AUTO) 4.6 X10'3 (1.8-7.7); NEUTROPHILS % (AUTO) 90.2 % (42-75); PLATELET COUNT 484 X10'3 (140-440); RED BLOOD COUNT 4.07 X10'6 (4.20-5.60); WHITE BLOOD COUNT 5.1 X10'3 (4.5-11.0)
[2021-07-29 13:38] LABS: ALANINE AMINOTRANSFERASE 18 U/L (12-78); ALBUMIN 3.2 G/DL (3.4-5.0); ALKALINE PHOSPHATASE 154 IU/L (46-116); ANION GAP 12 (8-16); ASPARTATE AMINO TRANSFERASE 13 U/L (10-37); BILIRUBIN,TOTAL 0.3 MG/DL (0.1-1.0); BLOOD UREA NITROGEN 26 MG/DL (7-18); BUN/CREATININE RATIO 13.8 (6.6-38.0); CALCIUM 8.4 MG/DL (8.5-10.1); CHLORIDE 104 MMOL/L (99-107); CREATININE 1.89 MG/DL (0.40-0.90); GLUCOSE 278 MG/DL (70-104); SODIUM 141 MMOL/L (135-145); TOTAL CARBON DIOXIDE 25.4 MMOL/L (24-32); TOTAL PROTEIN 6.5 G/DL (6.4-8.2); eGFR 26 ML/MIN
[2021-07-29 13:40] LABS: POTASSIUM 4.8 MMOL/L (3.5-5.1)
[2021-07-29 15:00] VITALS: BP 113/65
[2021-07-29] MEDS ORDERED: albuterol 2.5 MG/3 ML nebule NEB PRN (15:15)
[2021-07-29] MEDS ORDERED: dextrose 50%-water 50ml dispensing syringe IV PRN ×2 (16:00)
[2021-07-29] MEDS ORDERED: MESSAGE TO PHARMACY PO ONE (16:00)
[2021-07-29] MEDS ORDERED: glucagon, human recombinant 1mg kit SUBCUT PRN (16:00)
[2021-07-29] MEDS ORDERED: dextrose ORAL solution 15 GM/59 ML bottle PO PRN ×2 (16:00)
[2021-07-29 18:00] VITALS: BP 111/66
[2021-07-29] MEDS: insulin Lispro (HumaLOG) vial - multi-dose SQ SCH (19:42)
[2021-07-29] MEDS: lactobacillus rhamnosus 10,000 MMU CELLS/CAPSULE PO SCH (19:51)
[2021-07-29] MEDS: sotalol 80mg tablet PO SCH (19:52)
[2021-07-29] MEDS: K and/or MAG REPLACEMENT MC SCH (20:00)
[2021-07-29] MEDS ORDERED: insulin glargine (Lantus) pen - multi-dose SQ SCH (21:00)
[2021-07-29] MEDS ORDERED: doxazosin mesylate 2mg tablet PO SCH (21:00)
[2021-07-29 22:00] VITALS: BP 121/68
[2021-07-30 02:00] VITALS: BP 112/55
[2021-07-30] MEDS: albuterol 2.5 MG/3 ML nebule NEB SCH ×2 (02:38→08:00)
--- NOTE | 2021-07-30 06:00 | NUR ---
Student documentation: I have reviewed and agree with all interventions, assessments performed and documented by Cait Fleming. Student Medication Administration: For this medication-pass time frame, all medication were reviewed, dispensed, administered and documented per hospital policy by Cait Fleming.
--- NOTE | 2021-07-30 06:00 | NUR ---
Patient in room PCU 3027. I have received report from SN Cait and WALE Garcia and had the opportunity to ask questions and assume patient care.
--- NOTE | 2021-07-30 06:30 | NUR ---
Problems reprioritized. Patient report given, questions answered & plan of care reviewed with Saba ECHEVARRIA.
[2021-07-30 07:00] VITALS: BP 128/62
[2021-07-30] MEDS: K and/or MAG REPLACEMENT MC SCH (08:00)
[2021-07-30] MEDS ORDERED: nicotine 7mg patch - 24hr TD SCH (08:00)
[2021-07-30] MEDS ORDERED: amLODIPine 5mg tablet PO SCH (08:00)
[2021-07-30] MEDS ORDERED: atorvastatin 20mg tablet PO SCH (08:00)
[2021-07-30] MEDS ORDERED: clopidogrel 75mg tablet PO SCH (08:00)
[2021-07-30] MEDS: furosemide 40mg/4ml inj IV SCH ×2 (08:00→08:37)
[2021-07-30] MEDS: methylPREDNISolone sod succ 125mg/2ml vial IV SCH ×2 (08:00→08:36)
[2021-07-30] MEDS ORDERED: allopurinol 100mg tablet PO SCH (08:00)
[2021-07-30] MEDS: heparin, porcine 5000 units/ml vial SQ SCH (08:32)
[2021-07-30] MEDS: lactobacillus rhamnosus 10,000 MMU CELLS/CAPSULE PO SCH (08:33)
[2021-07-30] MEDS: sotalol 80mg tablet PO SCH (08:35)
[2021-07-30] MEDS: CefTRIAXone 2gm/D5W 50ml BAG 50 ML IV SCH (08:36)
[2021-07-30] MEDS: insulin Lispro (HumaLOG) vial - multi-dose SQ SCH ×2 (08:41→12:59)
[2021-07-30] MEDS: acetylcysteine 200 MG/ml 4ml vial PO SCH (09:10)
--- NOTE | 2021-07-30 09:19 | NUR ---
PAGER ID: [phone] MESSAGE: RE: Irene Contreras rm [id number] can we convert IV meds to po. She lost her IV and is thinking she may go home. Thanks WALE Euceda [phone] Addendum: 07/30/21 at 0920 by Kinsey Gipson RN Dr Cline returned page. States she will convert IV meds to Po
[2021-07-30] MEDS: MESSAGE TO NURSING PO SCH (10:00)
[2021-07-30] MEDS ORDERED: levoFLOXACIN 500mg tablet PO ONE (10:30)
[2021-07-30 10:39] LABS: ALBUMIN 3.3 G/DL (3.4-5.0); ANION GAP 15 (8-16); BLOOD UREA NITROGEN 29 MG/DL (7-18); BUN/CREATININE RATIO 14.2 (6.6-38.0); CALCIUM 8.2 MG/DL (8.5-10.1); CHLORIDE 104 MMOL/L (99-107); CREATININE 2.04 MG/DL (0.40-0.90); GLUCOSE 179 MG/DL (70-104); POTASSIUM 4.4 MMOL/L (3.5-5.1); SODIUM 142 MMOL/L (135-145); TOTAL CARBON DIOXIDE 23.4 MMOL/L (24-32); eGFR 24 ML/MIN
[2021-07-30] MEDS ORDERED: LEVO500T90 PO (10:52)
[2021-07-30] MEDS ORDERED: FURO20TA4 PO (10:53)
[2021-07-30 11:00] VITALS: BP 98/62
--- NOTE | 2021-07-30 13:00 | NUR ---
Pt discharged in wheelchair in stable condition. All questions answered. Verbalized understanding of how to use 4 Liters Oxygen. Went over prescriptions with pt and caregiver and all changes in medications
[2021-07-31] MEDS ORDERED: levoFLOXACIN 500mg tablet PO SCH (08:00)
== END 2021-07-30 13:51 | disposition home health service (06) | DRG 291 ==
LOC: ER 04:50 → ED HOLD 09:40 → PCU 3S 19:30
PROVIDERS: ADMIT Internal Medicine; ATTEND Internal Medicine
PROC: BW241ZZ Computerized Tomography (CT Scan) of Chest and Abdomen using Low Osmolar Contrast (ICD-10-PCS; 2021-07-28)
PROC: 3E02340 Introduction of Influenza Vaccine into Muscle, Percutaneous Approach (ICD-10-PCS; principal; 2021-07-29)
DX: I13.0 Hypertensive heart and chronic kidney disease with heart failure and stage 1 through stage 4 chronic kidney disease, or unspecified chronic kidney disease (principal); I50.23 Acute on chronic systolic (congestive) heart failure; I48.20 Chronic atrial fibrillation, unspecified; H54.8 Legal blindness, as defined in USA; E11.22 Type 2 diabetes mellitus with diabetic chronic kidney disease; Z20.822 Contact with and (suspected) exposure to COVID-19; E11.65 Type 2 diabetes mellitus with hyperglycemia; E78.5 Hyperlipidemia, unspecified; N18.9 Chronic kidney disease, unspecified; Z87.891 Personal history of nicotine dependence; Z23 Encounter for immunization; Z88.6 Allergy status to analgesic agent; Z91.030 Bee allergy status
CPT/HCPCS: 36415; 36600; 71045; 71260; 80048; 80053; 82803; 82948; 83036; 83605; 83735; 83880; 84484; 85018; 85025; 87040; 87081; 87635; 93005; 94640; 94760; 97110; 97116; 97161; 97530; 99285; G0378; J0696; J1644; J1815; J1940; J2930; J7030; Q9967

== ENCOUNTER 2021-08-08 12:36 | Emergency (ER) | payer MEDICARE, MEDICAID ==
[~2021-08-08] VITALS: Ht 157.5 cm; Wt 79.5 kg
[~2021-08-08 12:36] MED LIST changes: +LEVO500T90 PO; -LOSA1TAB41 PO
[2021-08-08] MEDS ORDERED: ipratropium/albuterol 3ml nebule NEB ONE (12:40)
[2021-08-08] MEDS ORDERED: methylPREDNISolone sod succ 125mg/2ml vial IV ONE (12:40)
[2021-08-08 13:23] LABS: ALANINE AMINOTRANSFERASE 20 U/L (12-78); ALBUMIN 2.8 G/DL (3.4-5.0); ALBUMIN/GLOBULIN RATIO 0.9 (1.1-1.5); ALKALINE PHOSPHATASE 96 IU/L (46-116); ANION GAP 10 (8-16); ASPARTATE AMINO TRANSFERASE 21 U/L (10-37); BILIRUBIN,TOTAL 0.5 MG/DL (0.1-1.0); BLOOD UREA NITROGEN 26 MG/DL (7-18); BUN/CREATININE RATIO 18.1 (6.6-38.0); CALCIUM 8.4 MG/DL (8.5-10.1); CHLORIDE 109 MMOL/L (99-107); CREATININE 1.44 MG/DL (0.40-0.90); GLUCOSE 85 MG/DL (70-104); POTASSIUM 4.6 MMOL/L (3.5-5.1); SODIUM 143 MMOL/L (135-145); TOTAL CARBON DIOXIDE 23.8 MMOL/L (24-32); TOTAL PROTEIN 5.9 G/DL (6.4-8.2); eGFR 35 ML/MIN
[2021-08-08 13:36] LABS: BASOPHILS # (AUTO) 0.1 X10'3 (0-0.2); BASOPHILS % (AUTO) 0.6 % (0-1); EOSINOPHILS # (AUTO) 0.1 X10'3 (0-0.9); EOSINOPHILS % (AUTO) 0.6 % (0-6); HEMATOCRIT 35.1 % (35.0-45.0); HEMOGLOBIN 11.3 g/dl (12.0-16.0); LYMPHOCYTES # (AUTO) 0.4 X10'3 (1.1-4.8); LYMPHOCYTES % (AUTO) 3.9 % (21-51); MEAN CORPUSCULAR HEMOGLOBIN 27.9 PG (27.0-31.0); MEAN CORPUSCULAR HGB CONC 32.2 g/dL (33.0-36.5); MEAN CORPUSCULAR VOLUME 86.6 FL (78-98); MEAN PLATELET VOLUME 7.5 FL (7.4-10.4); MONOCYTES # (AUTO) 0.7 X10'3 (0-0.9); NEUTROPHILS # (AUTO) 9.3 X10'3 (1.8-7.7); NEUTROPHILS % (AUTO) 87.9 % (42-75); PLATELET COUNT 358 X10'3 (140-440); RED BLOOD COUNT 4.05 X10'6 (4.20-5.60); RED CELL DISTRIBUTION WIDTH 16.6 % (11.5-14.5); WHITE BLOOD COUNT 10.6 X10'3 (4.5-11.0)
[2021-08-08] MEDS ORDERED: furosemide 10 MG/1 ML 10ml inj IV ONE (13:40)
[2021-08-08 13:54] VITALS: BP 170/82
[2021-08-08 15:09] LABS: ACANTHOCYTES FEW; BURR CELLS 1+; PLATELET ESTIMATE NORMAL
[2021-08-08 15:10] LABS: STOMATOCYTES 1+
== END 2021-08-08 15:30 | disposition home or self-care (01) ==
LOC: ER 12:36
DX: J96.12 Chronic respiratory failure with hypercapnia (principal); I50.9 Heart failure, unspecified; E11.9 Type 2 diabetes mellitus without complications; J44.9 Chronic obstructive pulmonary disease, unspecified; I48.91 Unspecified atrial fibrillation; Z87.891 Personal history of nicotine dependence; Z88.6 Allergy status to analgesic agent; Z87.01 Personal history of pneumonia (recurrent); Z91.030 Bee allergy status; Z79.899 Other long term (current) drug therapy
CPT/HCPCS: 36415; 71045; 80053; 83880; 84484; 85008; 85025; 93005; 94640; 96374; 96375; 99284; J1940; J2930; 94760

== ENCOUNTER 2021-08-18 13:50 | Inpatient (IN) | payer MEDICARE, MEDICAID ==
[~2021-08-18] VITALS: Ht 160 cm; Wt 84.2 kg
[~2021-08-18 13:50] MED LIST changes: +etomidate 2mg/ml inj. ONE; +rocuronium 10mg/ml inj IV ONE
[2021-08-18] MEDS ORDERED: ipratropium/albuterol 3ml nebule NEB ONE (14:00)
[2021-08-18] MEDS ORDERED: furosemide 10 MG/1 ML 10ml inj IV ONE (14:05)
--- NOTE | 2021-08-18 14:05 | NUR ---
MD AT BEDSIDE. PT 02 78% ON RA AFTER EXERTION. XRAY AT BEDSIDE
[2021-08-18] MEDS ORDERED: albuterol 2.5 MG/3 ML nebule CONTNEB PRN (14:15)
[2021-08-18] MEDS ORDERED: methylPREDNISolone sod succ 125mg/2ml vial IV ONE (14:15)
[2021-08-18] MEDS ORDERED: CefTRIAXone 2gm/D5W 50ml BAG 50 ML IV ONE (14:30)
[2021-08-18] MEDS ORDERED: azithromycin/NS 500mg/250ml 250 ML IV ONE (14:30)
--- NOTE | 2021-08-18 14:30 | NUR ---
NRB TAKEN OFF PT, WEANED DOWN TO 6L NC, PT SATS 90%.
[2021-08-18 14:44] LABS: BASOPHILS % (AUTO) 0.6 % (0-1); EOSINOPHILS # (AUTO) 0.1 X10'3 (0-0.9); HEMATOCRIT 31.9 % (35.0-45.0); HEMOGLOBIN 10.4 g/dl (12.0-16.0); LYMPHOCYTES # (AUTO) 0.4 X10'3 (1.1-4.8); LYMPHOCYTES % (AUTO) 4.9 % (21-51); MEAN CORPUSCULAR HEMOGLOBIN 27.6 PG (27.0-31.0); MEAN CORPUSCULAR HGB CONC 32.5 g/dL (33.0-36.5); MEAN CORPUSCULAR VOLUME 84.9 FL (78-98); MEAN PLATELET VOLUME 7.6 FL (7.4-10.4); MONOCYTES # (AUTO) 0.3 X10'3 (0-0.9); MONOCYTES % (AUTO) 4.2 % (2-12); NEUTROPHILS # (AUTO) 7.3 X10'3 (1.8-7.7); NEUTROPHILS % (AUTO) 89.3 % (42-75); PLATELET COUNT 306 X10'3 (140-440); RED BLOOD COUNT 3.76 X10'6 (4.20-5.60); RED CELL DISTRIBUTION WIDTH 16.7 % (11.5-14.5); WHITE BLOOD COUNT 8.1 X10'3 (4.5-11.0)
[2021-08-18 14:52] LABS: ALANINE AMINOTRANSFERASE 20 U/L (12-78); ALBUMIN 2.7 G/DL (3.4-5.0); ALBUMIN/GLOBULIN RATIO 0.9 (1.1-1.5); ALKALINE PHOSPHATASE 100 IU/L (46-116); ANION GAP 5 (8-16); ASPARTATE AMINO TRANSFERASE 16 U/L (10-37); BILIRUBIN,TOTAL 0.3 MG/DL (0.1-1.0); BLOOD UREA NITROGEN 21 MG/DL (7-18); BUN/CREATININE RATIO 19.8 (6.6-38.0); CALCIUM 8.2 MG/DL (8.5-10.1); CHLORIDE 104 MMOL/L (99-107); CREATININE 1.06 MG/DL (0.40-0.90); GLUCOSE 192 MG/DL (70-104); SODIUM 144 MMOL/L (135-145); TOTAL CARBON DIOXIDE 34.9 MMOL/L (24-32); TOTAL PROTEIN 5.8 G/DL (6.4-8.2); eGFR 51 ML/MIN
[2021-08-18 14:53] LABS: POTASSIUM 3.9 MMOL/L (3.5-5.1)
[2021-08-18] MEDS ORDERED: magnesium 2GM in 50ml NS 50 ML IV PRN (15:45)
[2021-08-18] MEDS ORDERED: magnesium Cl slow-release 64mg tablet PO PRN (15:45)
[2021-08-18] MEDS ORDERED: ondansetron/PF 4mg/2ml inj IV PRN (15:45)
[2021-08-18] MEDS ORDERED: magnesium 4gm in 100ml NS 100 ML IV PRN (15:45)
[2021-08-18] MEDS ORDERED: HYDROcodone/acetaminophen 5mg/325mg tablet PO PRN (15:45)
[2021-08-18] MEDS ORDERED: magnesium hydroxide 30ml (MOM) UD suspension PO PRN (15:45)
[2021-08-18] MEDS ORDERED: acetaminophen 325mg tablet PO PRN (15:45)
[2021-08-18] MEDS ORDERED: mag hydrox/Alum hydrox/simeth 30ml oral suspension PO PRN (15:45)
[2021-08-18] MEDS ORDERED: potassium CL 10mEq/100ml bag 100 ML IV PRN (15:45)
[2021-08-18] MEDS ORDERED: potassium Cl 20 mEq SR tablet PO PRN ×2 (15:45)
--- NOTE | 2021-08-18 16:20 | NUR ---
RETURNED FROM CT.
[2021-08-18 16:22] LABS: MAGNESIUM 1.8 MG/DL (1.5-2.4); POTASSIUM 3.9 MMOL/L (3.5-5.1)
[2021-08-18 16:25] LABS: APTT 27 SECONDS (22-32)
[2021-08-18 16:34] LABS: ABG BASE EXCESS 2.2 mmol/L (-2.0-2.0); ABG HCO3 30.4 mmol/L (22.0-26.0); ABG OXYGEN SATURATION 86.1 % (94-97); ABG PCO2 (T) 66.9 mmHg (32.0-45.0); FCOHb 0.3 % (0.0-3.9); FLOW 6 L/min; FMetHb 0.5 % (0.0-1.5); FO2Hb 85.4 % (94-97); TOTAL HEMOGLOBIN 11.3 G/dl (12.0-16.0)
--- NOTE | 2021-08-18 16:39 | NUR ---
HOSPTIALIST AT BEDSIDE
[2021-08-18 18:00] VITALS: BP 141/49
--- NOTE | 2021-08-18 18:14 | NUR ---
Patient in room MED 310. I have received report from BRANDYN ECHEVARRIA and had the opportunity to ask questions and assume patient care.
[2021-08-18 18:21] LABS: ABG BASE EXCESS 6.4 mmol/L (-2.0-2.0); ABG HCO3 34.7 mmol/L (22.0-26.0); ABG OXYGEN SATURATION 93.5 % (94-97); ABG PCO2 (T) 70.1 mmHg (32.0-45.0); ABG PO2 (T) 72.4 mmHg (75.0-100.0); FCOHb 0.3 % (0.0-3.9); FMetHb 0.4 % (0.0-1.5); FO2Hb 92.8 % (94-97); RESPIRATORY RATE 16 b/min; TOTAL HEMOGLOBIN 11.8 G/dl (12.0-16.0)
[2021-08-18] MEDS: K and/or MAG REPLACEMENT MC SCH (20:00)
[2021-08-18] MEDS: sotalol 80mg tablet PO SCH (20:39)
[2021-08-18] MEDS: doxazosin mesylate 2mg tablet PO SCH (20:40)
[2021-08-18] MEDS: furosemide 20 MG/2 ML vial IV SCH (20:41)
[2021-08-18] MEDS: docusate sod 100mg capsule PO SCH (20:41)
[2021-08-18] MEDS ORDERED: temazepam 15mg capsule PO PRN (21:00)
[2021-08-18] MEDS: HYDROmorphone/PF 0.2 MG/ML SYRINGE IV PRN (21:38)
[2021-08-18 22:00] VITALS: BP 138/53
[2021-08-19] VITALS (7 sets, daily range): BP systolic 136–147; BP diastolic 55–70
[2021-08-19] MEDS: HYDROcodone/acetaminophen 10/325mg tab PO PRN (00:23)
[2021-08-19] MEDS: HYDROmorphone/PF 0.2 MG/ML SYRINGE IV PRN (03:24)
--- NOTE | 2021-08-19 06:13 | NUR ---
Problems reprioritized. Patient report given, questions answered & plan of care reviewed with ARABELLA ECHEVARRIA.
--- NOTE | 2021-08-19 06:52 | NUR ---
Patient in room MED 310. I have received report from Milla ECHEVARRIA and had the opportunity to ask questions and assume patient care.
[2021-08-19] MEDS: K and/or MAG REPLACEMENT MC SCH ×2 (08:00→20:00)
[2021-08-19 08:15] LABS: BASOPHILS % (AUTO) 0.3 % (0-1); EOSINOPHILS % (AUTO) 0 % (0-6); HEMATOCRIT 32.4 % (35.0-45.0); HEMOGLOBIN 10.6 g/dl (12.0-16.0); LYMPHOCYTES # (AUTO) 0.2 X10'3 (1.1-4.8); LYMPHOCYTES % (AUTO) 2.9 % (21-51); MEAN CORPUSCULAR HEMOGLOBIN 27.7 PG (27.0-31.0); MEAN CORPUSCULAR HGB CONC 32.9 g/dL (33.0-36.5); MEAN CORPUSCULAR VOLUME 84.3 FL (78-98); MEAN PLATELET VOLUME 7.3 FL (7.4-10.4); MONOCYTES # (AUTO) 0.1 X10'3 (0-0.9); MONOCYTES % (AUTO) 1.2 % (2-12); NEUTROPHILS # (AUTO) 6.9 X10'3 (1.8-7.7); NEUTROPHILS % (AUTO) 95.6 % (42-75); PLATELET COUNT 300 X10'3 (140-440); RED BLOOD COUNT 3.84 X10'6 (4.20-5.60); RED CELL DISTRIBUTION WIDTH 16.4 % (11.5-14.5); WHITE BLOOD COUNT 7.2 X10'3 (4.5-11.0)
[2021-08-19] MEDS: nicotine 7mg patch - 24hr TD SCH (08:26)
[2021-08-19] MEDS: sotalol 80mg tablet PO SCH ×2 (08:27→20:19)
[2021-08-19] MEDS: furosemide 20 MG/2 ML vial IV SCH ×2 (08:28→20:19)
[2021-08-19] MEDS: allopurinol 100mg tablet PO SCH (08:28)
[2021-08-19] MEDS: docusate sod 100mg capsule PO SCH ×2 (08:28→20:19)
[2021-08-19] MEDS: clopidogrel 75mg tablet PO SCH (08:30)
[2021-08-19] MEDS: amLODIPine 5mg tablet PO SCH (08:31)
[2021-08-19] MEDS: CefTRIAXone/D5W-Rocephin 1gm 50 ML IV SCH (08:33)
[2021-08-19] MEDS: potassium chloride 8mEq ER tablet PO SCH (08:33)
[2021-08-19 08:52] LABS: ALANINE AMINOTRANSFERASE 17 U/L (12-78); ALBUMIN 2.8 G/DL (3.4-5.0); ALBUMIN/GLOBULIN RATIO 0.9 (1.1-1.5); ALKALINE PHOSPHATASE 103 IU/L (46-116); ANION GAP 5 (8-16); ASPARTATE AMINO TRANSFERASE 15 U/L (10-37); BILIRUBIN,TOTAL 0.3 MG/DL (0.1-1.0); BLOOD UREA NITROGEN 21 MG/DL (7-18); BUN/CREATININE RATIO 18.8 (6.6-38.0); CALCIUM 8.5 MG/DL (8.5-10.1); CHLORIDE 104 MMOL/L (99-107); CREATININE 1.12 MG/DL (0.40-0.90); GLUCOSE 175 MG/DL (70-104); MAGNESIUM 1.8 MG/DL (1.5-2.4); POTASSIUM 4.1 MMOL/L (3.5-5.1); SODIUM 144 MMOL/L (135-145); TOTAL CARBON DIOXIDE 35.3 MMOL/L (24-32); eGFR 47 ML/MIN
[2021-08-19] MEDS ORDERED: LIDOcaine 1% (10mg/ml)w/preservative injection 20ml MDV SQ ONE (09:35)
--- NOTE | 2021-08-19 10:25 | NUR ---
Noted pt with a low Luis of 12. Per physician notes pt with a chest tube in place. Otherwise skin appears to be intact per physical assessment. Addendum: 08/19/21 at [address] Amended: Links added.
--- NOTE | 2021-08-19 11:36 | NUR ---
FOAM TAPE TO RIGHT SIDE CHEST LIFTED, GAUZE AND TAPE APPLIED, TUBE STRAIGHT AND VERIFIED. PT TOLERATED WELL
--- NOTE | 2021-08-19 14:49 | NUR ---
Pt alert and oriented off bipap currently and on 5LNC spo2 92%. aware. Pt going down to CT. Addendum: 08/19/21 at 1450 by Sharad [address] RT Amended: Links added.
[2021-08-19] MEDS ORDERED: ondansetron 4mg rapidly disintigrating tab PO PRN (15:00)
--- NOTE | 2021-08-19 15:18 | NUR ---
PRESSURE ULCER EDUCATION: DEFINITION: A pressure ulcer is an area of skin that breaks down when you stay in one position too long. The constant pressure against the skin reduces the blood flow to that area and the affected tissue dies. CAUSES: "Being bedridden or in a wheelchair "Fragile skin "Having a chronic condition, such as diabetes or vascular disease "Inability to move certain parts of your body without assistance "Older age "Incontinence of urine or stool SYMPTOMS: "A reddened area that DOES NOT turn white when pressed on - this can be the beginning of a pressure ulcer "A blister, deep sore or a crater - these can be advanced pressure ulcers FIRST AID: "Relieve the pressure on this area "Keep the area clean and dry "Call your primary doctor if you see any of the above symptoms "DO NOT massage the area "DO NOT use a donut shaped or ring shaped pillow- these actually interfere with the blood flow and cause complications PREVENTION: "Check for pressure ulcers everyday "Change position at least every two hours to relieve pressure "Use items that help relieve pressure- pillows, sheepskin, foam padding, and powders. "Keep skin clean and dry "Eat healthy well balanced meals "Exercise daily IF YOU SEE ANY OF THESE SYMPTOMS WHILE IN THE HOSPITAL - TELL YOUR NURSE IMMEDIATELY. IF YOU SEE ANY OF THESE SYMPTOMS WHILE AT HOME OR HAVE ANY QUESTIONS OR CONCERNS ABOUT PRESSURE ULCERS - CALL YOUR PRIMARY DOCTOR IMMEDIATELY. Addendum: 08/19/21 at 1518 by Carmel Jones RN Amended: Links added.
--- NOTE | 2021-08-19 15:30 | NUR ---
PATIENT OFF FLOOR TO CT
--- NOTE | 2021-08-19 18:04 | NUR ---
Patient in room MED 310. I have received report from ARABELLA ECHEVARRIA and had the opportunity to ask questions and assume patient care.
--- NOTE | 2021-08-19 18:28 | NUR ---
Problems reprioritized. Patient report given, questions answered & plan of care reviewed with Milla ECHEVARRIA[].
[2021-08-19] MEDS: doxazosin mesylate 2mg tablet PO SCH (20:22)
[2021-08-19] MEDS: lactobacillus rhamnosus 10,000 MMU CELLS/CAPSULE PO SCH (20:23)
[2021-08-20] VITALS (12 sets, daily range): BP systolic 83–157; BP diastolic 43–72
--- NOTE | 2021-08-20 00:04 | NUR ---
Problems reprioritized. Patient report given, questions answered & plan of care reviewed with bERBOUBACAR RN.
--- NOTE | 2021-08-20 06:20 | NUR ---
Patient in room CICU 2016. I have received report from WALE Rodriguez and had the opportunity to ask questions and assume patient care.
--- NOTE | 2021-08-20 06:29 | NUR ---
Problems reprioritized. Patient report given, questions answered & plan of care reviewed with Emi RN .
[2021-08-20] MEDS: HYDROcodone/acetaminophen 10/325mg tab PO PRN (07:09)
[2021-08-20] MEDS: HYDROmorphone/PF 0.2 MG/ML SYRINGE IV PRN (07:09)
[2021-08-20] MEDS ORDERED: furosemide 40mg/4ml inj IV ONE (07:45)
[2021-08-20 07:49] LABS: BASOPHILS # (AUTO) 0.1 X10'3 (0-0.2); BASOPHILS % (AUTO) 0.6 % (0-1); EOSINOPHILS # (AUTO) 0.1 X10'3 (0-0.9); EOSINOPHILS % (AUTO) 1.2 % (0-6); HEMATOCRIT 33.3 % (35.0-45.0); HEMOGLOBIN 10.8 g/dl (12.0-16.0); LYMPHOCYTES # (AUTO) 0.5 X10'3 (1.1-4.8); LYMPHOCYTES % (AUTO) 4.4 % (21-51); MEAN CORPUSCULAR HEMOGLOBIN 27.2 PG (27.0-31.0); MEAN CORPUSCULAR HGB CONC 32.4 g/dL (33.0-36.5); MEAN PLATELET VOLUME 7.4 FL (7.4-10.4); MONOCYTES # (AUTO) 0.8 X10'3 (0-0.9); MONOCYTES % (AUTO) 7.1 % (2-12); NEUTROPHILS # (AUTO) 9.8 X10'3 (1.8-7.7); NEUTROPHILS % (AUTO) 86.7 % (42-75); PLATELET COUNT 342 X10'3 (140-440); RED BLOOD COUNT 3.96 X10'6 (4.20-5.60); RED CELL DISTRIBUTION WIDTH 16.5 % (11.5-14.5); WHITE BLOOD COUNT 11.4 X10'3 (4.5-11.0)
[2021-08-20] MEDS: ipratropium/albuterol 3ml nebule NEB PRN ×2 (07:57→11:18)
[2021-08-20 08:00] LABS: ALANINE AMINOTRANSFERASE 15 U/L (12-78); ALBUMIN 2.8 G/DL (3.4-5.0); ALKALINE PHOSPHATASE 94 IU/L (46-116); ANION GAP 2 (8-16); BILIRUBIN,TOTAL 0.4 MG/DL (0.1-1.0); BLOOD UREA NITROGEN 22 MG/DL (7-18); BUN/CREATININE RATIO 20.8 (6.6-38.0); CALCIUM 8.6 MG/DL (8.5-10.1); CHLORIDE 101 MMOL/L (99-107); CREATININE 1.06 MG/DL (0.40-0.90); GLUCOSE 113 MG/DL (70-104); MAGNESIUM 1.7 MG/DL (1.5-2.4); SODIUM 142 MMOL/L (135-145); TOTAL CARBON DIOXIDE 39.3 MMOL/L (24-32); TOTAL PROTEIN 5.7 G/DL (6.4-8.2); eGFR 51 ML/MIN
[2021-08-20] MEDS: K and/or MAG REPLACEMENT MC SCH ×2 (08:00→20:00)
[2021-08-20] MEDS: furosemide 40mg/4ml inj IV SCH ×2 (08:03→20:00)
[2021-08-20 08:04] LABS: ASPARTATE AMINO TRANSFERASE 21 U/L (10-37); POTASSIUM 3.8 MMOL/L (3.5-5.1)
[2021-08-20 08:15] LABS: ABG BASE EXCESS 10.2 mmol/L (-2.0-2.0); ABG HCO3 37.7 mmol/L (22.0-26.0); ABG OXYGEN SATURATION 85.7 % (94-97); ABG PCO2 (T) 66.8 mmHg (32.0-45.0); ABG PO2 (T) 53.2 mmHg (75.0-100.0); ALLEN'S TEST POSITIVE; FCOHb 0.5 % (0.0-3.9); FMetHb 0.3 % (0.0-1.5); PATIENT TEMPERATURE 36.9; RESPIRATORY RATE 12 b/min; TOTAL HEMOGLOBIN 11.2 G/dl (12.0-16.0)
[2021-08-20] MEDS ORDERED: dextrose 50%-water 50ml dispensing syringe IV PRN ×2 (08:20)
[2021-08-20] MEDS ORDERED: insulin Lispro (HumaLOG) vial - multi-dose SQ SCH (08:20)
[2021-08-20] MEDS ORDERED: MESSAGE TO PHARMACY PO ONE (08:20)
[2021-08-20] MEDS ORDERED: dextrose ORAL solution 15 GM/59 ML bottle PO PRN ×2 (08:20)
[2021-08-20] MEDS ORDERED: glucagon, human recombinant 1mg kit SUBCUT PRN (08:20)
[2021-08-20] MEDS: sotalol 80mg tablet PO SCH (11:12)
[2021-08-20] MEDS: allopurinol 100mg tablet PO SCH (11:28)
[2021-08-20] MEDS: docusate sod 100mg capsule PO SCH (11:28)
[2021-08-20] MEDS: lactobacillus rhamnosus 10,000 MMU CELLS/CAPSULE PO SCH (11:28)
[2021-08-20] MEDS: CefTRIAXone/D5W-Rocephin 1gm 50 ML IV SCH (11:28)
[2021-08-20] MEDS: amLODIPine 5mg tablet PO SCH (11:29)
[2021-08-20] MEDS: nicotine 7mg patch - 24hr TD SCH (11:29)
[2021-08-20] MEDS: potassium chloride 8mEq ER tablet PO SCH (11:29)
[2021-08-20] MEDS: clopidogrel 75mg tablet PO SCH (11:29)
[2021-08-20] MEDS ORDERED: midazolam 1 mg/ML 2ml injection ONE ×2 (13:33→14:46)
--- NOTE | 2021-08-20 13:35 | NUR ---
Pt report given to WEATHERIZATION INSTALLERAngeli
[2021-08-20] MEDS ORDERED: FENTANYL CITRATE/D5W/PF 100 ML IV PRN (14:05)
[2021-08-20] MEDS ORDERED: midazolam 1 mg/ML 2ml injection IV ONE ×2 (14:05→15:00)
[2021-08-20] MEDS ORDERED: etomidate 2mg/ml inj. IV ONE (14:05)
[2021-08-20] MEDS ORDERED: ipratropium/albuterol 3ml nebule NEB PRN (14:05)
[2021-08-20] MEDS ORDERED: fentaNYL/PF 50MCG/1 ML 2ML syringe IV PRN (14:05)
[2021-08-20] MEDS ORDERED: atropine 0.1mg/ml 10ml syringe ONE (14:44)
[2021-08-20] MEDS ORDERED: ipratropium/albuterol 3ml nebule NEB SCH (15:00)
[2021-08-20] MEDS ORDERED: acetylcysteine 200 MG/ml 4ml vial INH ONE (15:05)
[2021-08-20] MEDS ORDERED: DOPamine 400mg/D5W 250ml 250 ML IV ONE (15:59)
[2021-08-20] MEDS: ipratropium/albuterol 3ml nebule NEB SCH ×3 (16:18→22:57)
[2021-08-20 16:38] LABS: ABG BASE EXCESS 10.2 mmol/L (-2.0-2.0); ABG HCO3 38.3 mmol/L (22.0-26.0); ABG OXYGEN SATURATION 88.9 % (94-97); ABG PCO2 (T) 70.1 mmHg (32.0-45.0); ABG PO2 (T) 59.6 mmHg (75.0-100.0); ALLEN'S TEST POSITIVE; FCOHb 0.4 % (0.0-3.9); FMetHb 0.2 % (0.0-1.5); FO2Hb 88.4 % (94-97); PEEP 10 cm H2O; RESPIRATORY RATE 20 b/min; TIDAL VOLUME 300 mL; TOTAL HEMOGLOBIN 12.4 G/dl (12.0-16.0)
[2021-08-20] MEDS ORDERED: DOPamine 400mg/D5W 250ml 250 ML IV PRN (17:05)
[2021-08-20] MEDS ORDERED: amiodarone 150mg/dext, iso-os 100 ML IV ONE (17:25)
[2021-08-20] MEDS: NORepinephrine 8mg/ 250ml NS 250 ML IV PRN (17:41)
[2021-08-20] MEDS: amiodarone/D5 360MG/200ML BAG 200 ML IV SCH ×2 (18:19→23:25)
--- NOTE | 2021-08-20 18:20 | NUR ---
Patient in room CICU 2016. I have received report from Angeli RN and Luzma RN and had the opportunity to ask questions and assume patient care. Patient is intubated 8.0 ET tube secured at 21cm at the teeth. on the ventilator at 100 % fiO2 AC PRVC PEEP 10 rate of 20. Patient oxygen saturation 88-90%. Patient with left chest tube in place to suction with no air leak noted. Patient with right IJ central line. Patient is sedated and is on Levophed for blood pressure support. See IV spread sheet for rates. compliance monitor showing Atrial fibrillation rate in the 80's. Oral temp 36.2, warm blankets applied to patient. Lung sounds absent to left base diminished to left upper lobe, clear to right upper, diminished to the base.
[2021-08-20] MEDS ORDERED: acetylcysteine 200 MG/ml 4ml vial PO SCH (19:00)
--- NOTE | 2021-08-20 19:47 | NUR ---
Patients sister Adrienne Lopez called for update on patients condition.
[2021-08-20] MEDS ORDERED: amLODIPine 5mg tablet NG SCH (20:18)
[2021-08-20] MEDS ORDERED: clopidogrel 75mg tablet NG SCH (20:19)
[2021-08-20] MEDS ORDERED: doxazosin mesylate 2mg tablet NG SCH (20:20)
[2021-08-20] MEDS ORDERED: sotalol 80mg tablet NG SCH (20:22)
--- NOTE | 2021-08-20 20:58 | NUR ---
Dr. Peralta called re: Lasix and Betapace medications due tonight. Patients current IV infusions reviewed with MD, patient currently on Levophed for blood pressure support and Amiodarone for rapid Atrial fibrillation. Made MD aware of decreased urine output of 15ml/hr. PER MD HOLD Lasix and Betapace for tonight.
[2021-08-20] MEDS: insulin glargine (Lantus) pen - multi-dose SQ SCH (21:00)
[2021-08-20] MEDS: potassium Cl 20mEq/100mL bag 100 ML IV PRN ×2 (21:23→22:31)
[2021-08-20] MEDS: docusate sodium 100mg/10ml UD cup NG SCH (21:51)
[2021-08-20] MEDS: acetylcysteine 200 MG/ml 4ml vial NG SCH (22:57)
[2021-08-21] VITALS (24 sets, daily range): BP systolic 102–148; BP diastolic 53–74
[2021-08-21] MEDS: NORepinephrine 8mg/ 250ml NS 250 ML IV PRN (00:53)
[2021-08-21] MEDS: midazolam 100mg in NS 100ml 100 ML IV PRN ×2 (01:51→19:04)
--- NOTE | 2021-08-21 03:00 | NUR ---
Patient not tolerating turns or movement well, during turn for linen change patient desaturated to the 80's with increased ectopy on monitor. Bolus of versed administered per MD order and protocol, patient took a while to recover from turn.
[2021-08-21] MEDS: acetylcysteine 200 MG/ml 4ml vial NG SCH ×6 (03:06→23:04)
[2021-08-21] MEDS: ipratropium/albuterol 3ml nebule NEB SCH ×6 (03:06→23:04)
[2021-08-21 03:18] LABS: ABG BASE EXCESS 4.8 mmol/L (-2.0-2.0); ABG HCO3 28.8 mmol/L (22.0-26.0); ABG OXYGEN SATURATION 88.6 % (94-97); ABG PCO2 (T) 40.3 mmHg (32.0-45.0); ABG PO2 (T) 55.3 mmHg (75.0-100.0); ALLEN'S TEST POSITIVE; FCOHb 0.1 % (0.0-3.9); FMetHb 0.2 % (0.0-1.5); FO2Hb 88.3 % (94-97); PATIENT TEMPERATURE 36.9; PEEP 10 cm H2O; RESPIRATORY RATE 20 b/min; TIDAL VOLUME 300 mL; TOTAL HEMOGLOBIN 11.5 G/dl (12.0-16.0)
[2021-08-21 03:48] LABS: BASOPHILS # (AUTO) 0.1 X10'3 (0-0.2); BASOPHILS % (AUTO) 0.3 % (0-1); EOSINOPHILS # (AUTO) 0.2 X10'3 (0-0.9); HEMOGLOBIN 10.5 g/dl (12.0-16.0); LYMPHOCYTES # (AUTO) 0.6 X10'3 (1.1-4.8); LYMPHOCYTES % (AUTO) 3.2 % (21-51); MEAN CORPUSCULAR HEMOGLOBIN 26.8 PG (27.0-31.0); MEAN CORPUSCULAR HGB CONC 31.8 g/dL (33.0-36.5); MEAN CORPUSCULAR VOLUME 84.4 FL (78-98); MEAN PLATELET VOLUME 7.8 FL (7.4-10.4); MONOCYTES # (AUTO) 1.5 X10'3 (0-0.9); MONOCYTES % (AUTO) 8.7 % (2-12); NEUTROPHILS # (AUTO) 15.2 X10'3 (1.8-7.7); NEUTROPHILS % (AUTO) 86.8 % (42-75); PLATELET COUNT 356 X10'3 (140-440); RED BLOOD COUNT 3.91 X10'6 (4.20-5.60); WHITE BLOOD COUNT 17.5 X10'3 (4.5-11.0)
[2021-08-21 04:04] LABS: ALANINE AMINOTRANSFERASE 17 U/L (12-78); ALBUMIN 2.5 G/DL (3.4-5.0); ALBUMIN/GLOBULIN RATIO 0.8 (1.1-1.5); ALKALINE PHOSPHATASE 93 IU/L (46-116); ANION GAP 9 (8-16); ASPARTATE AMINO TRANSFERASE 16 U/L (10-37); BILIRUBIN,TOTAL 0.4 MG/DL (0.1-1.0); BLOOD UREA NITROGEN 30 MG/DL (7-18); CALCIUM 8.2 MG/DL (8.5-10.1); CHLORIDE 101 MMOL/L (99-107); GLUCOSE 162 MG/DL (70-104); MAGNESIUM 1.5 MG/DL (1.5-2.4); POTASSIUM 4.1 MMOL/L (3.5-5.1); SODIUM 142 MMOL/L (135-145); TOTAL CARBON DIOXIDE 32.5 MMOL/L (24-32); TOTAL PROTEIN 5.8 G/DL (6.4-8.2); eGFR 34 ML/MIN
[2021-08-21] MEDS: amiodarone/D5 360MG/200ML BAG 200 ML IV SCH ×4 (05:33→23:45)
--- NOTE | 2021-08-21 05:36 | NUR ---
Rounds with Dr. Park. Current labs reviewed, ABG results. MD ordered vent changes decrease rate to 18, Tidal volume to 350 and increase PEEP to 12. Unable to located a current COVID test for patient, MD to order COVID test. door to room closed. Addressed patients urine output with doctor, no new orders at this time.
--- NOTE | 2021-08-21 06:40 | NUR ---
Problems reprioritized. Patient report given, questions answered & plan of care reviewed with WALE Bonilla.
[2021-08-21] MEDS: potassium chloride 8mEq ER tablet PO SCH (08:00)
[2021-08-21] MEDS: K and/or MAG REPLACEMENT MC SCH ×2 (08:00→20:00)
[2021-08-21] MEDS: docusate sodium 100mg/10ml UD cup NG SCH ×2 (08:19→20:30)
[2021-08-21] MEDS: allopurinol 100mg tablet NG SCH (08:19)
[2021-08-21] MEDS: lactobacillus rhamnosus 10,000 MMU CELLS/CAPSULE NG SCH ×2 (08:20→20:28)
[2021-08-21] MEDS: potassium Cl 20mEq/100mL bag 100 ML IV PRN (08:20)
[2021-08-21] MEDS: CefTRIAXone/D5W-Rocephin 1gm 50 ML IV SCH (08:26)
--- NOTE | 2021-08-21 08:28 | NUR ---
Initial: Pt admitted w/ recurring pleural effusion and acute respiratory failure per EMR. Pt previously on BiPAP though now intubated since 08/20. See TF recs below for if prolonged intubation. If extubated, recommend advance as medically indicated to CCHO diet. LBM 08/19 receiving routine colace. Noted A1C 7.6 though DM ed not appropriate at this time given pt condition. Noted current wt 160kg though likely actually 160lb as previous admit wt last month 73kg making true BMI 28. Will continue to monitor and make recommendations as appropriate. Recs: 1. IF TF, continuous TF using Vital AF at 50ml/hr providing 1200ml volume, 1440kcals, 90g protein, 973ml free water 2. IF TF, additional free water Per MD, previously on 2L fluid restriction 3. IF TF, PALB Q /; daily wts 4. Bowel care per rx 5. Upon extubation, advance to CCHO diet as medically indicated 6. DM education once pt more stable this admit Addendum: 08/21/21 at [address] Amended: Links added.
[2021-08-21] MEDS ORDERED: PERFLUTREN PROTEIN-A MICROSPHR (Optison) 0.22 MG/ML 3ML VIAL IV ONE (09:30)
[2021-08-21] MEDS ORDERED: vancomycin/NS 1 GM ADD-VANTAGE 250 ML IV ONE ×2 (10:00→18:50)
--- NOTE | 2021-08-21 18:30 | NUR ---
Patient in room CICU 2016. I have received report from WALE Bonilla and had the opportunity to ask questions and assume patient care.
[2021-08-21] MEDS ORDERED: vancomycin/NS 1 GM ADD-VANTAGE 250 ML IV PRN (18:50)
[2021-08-21] MEDS ORDERED: ceftazidime 1000mg in D5W 50ml 50 ML IV SCH (20:00)
[2021-08-21] MEDS: mineral oil/petrolatum ophthal oint EACHEYE SCH (20:29)
[2021-08-21] MEDS: insulin glargine (Lantus) pen - multi-dose SQ SCH (20:44)
--- NOTE | 2021-08-21 21:03 | NUR ---
Patient in Normal sinus rhythm rate in the 50-60's. Dr. Winston called to notify of change. Order to discontinue Amiodarone drip for tonight and will reassess in the morning for further treatment.
[2021-08-22] VITALS (22 sets, daily range): BP systolic 11–137; BP diastolic 50–72
[2021-08-22] MEDS: mineral oil/petrolatum ophthal oint EACHEYE SCH ×4 (02:30→20:45)
[2021-08-22] MEDS: ipratropium/albuterol 3ml nebule NEB SCH ×6 (02:45→22:36)
[2021-08-22] MEDS: acetylcysteine 200 MG/ml 4ml vial NG SCH ×6 (02:45→22:36)
[2021-08-22 02:56] LABS: BASOPHILS % (AUTO) 0.6 % (0-1); EOSINOPHILS # (AUTO) 0.1 X10'3 (0-0.9); HEMATOCRIT 30.5 % (35.0-45.0); HEMOGLOBIN 9.9 g/dl (12.0-16.0); LYMPHOCYTES # (AUTO) 0.7 X10'3 (1.1-4.8); LYMPHOCYTES % (AUTO) 8.9 % (21-51); MEAN CORPUSCULAR HEMOGLOBIN 27.1 PG (27.0-31.0); MEAN CORPUSCULAR HGB CONC 32.6 g/dL (33.0-36.5); MEAN CORPUSCULAR VOLUME 83.1 FL (78-98); MEAN PLATELET VOLUME 7.6 FL (7.4-10.4); MONOCYTES # (AUTO) 0.8 X10'3 (0-0.9); MONOCYTES % (AUTO) 9.8 % (2-12); NEUTROPHILS # (AUTO) 6.2 X10'3 (1.8-7.7); NEUTROPHILS % (AUTO) 79.7 % (42-75); PLATELET COUNT 243 X10'3 (140-440); RED BLOOD COUNT 3.67 X10'6 (4.20-5.60); RED CELL DISTRIBUTION WIDTH 17.6 % (11.5-14.5); WHITE BLOOD COUNT 7.8 X10'3 (4.5-11.0)
[2021-08-22 03:36] LABS: ABG BASE EXCESS 6.5 mmol/L (-2.0-2.0); ABG HCO3 29.8 mmol/L (22.0-26.0); ABG OXYGEN SATURATION 94.1 % (94-97); ABG PCO2 (T) 38.3 mmHg (32.0-45.0); ABG PO2 (T) 71.5 mmHg (75.0-100.0); ALLEN'S TEST POSITIVE; FCOHb 0.3 % (0.0-3.9); FMetHb 0.2 % (0.0-1.5); FO2Hb 93.6 % (94-97); PATIENT TEMPERATURE 37.2; PEEP 12 cm H2O; RESPIRATORY RATE 18 b/min; TIDAL VOLUME 350 mL; TOTAL HEMOGLOBIN 11.2 G/dl (12.0-16.0)
[2021-08-22 04:44] LABS: ANION GAP 8 (8-16); CHLORIDE 103 MMOL/L (99-107); GLUCOSE 89 MG/DL (70-104); POTASSIUM 3.5 MMOL/L (3.5-5.1); SODIUM 143 MMOL/L (135-145)
[2021-08-22 04:45] LABS: BILIRUBIN,TOTAL 0.5 MG/DL (0.1-1.0); BLOOD UREA NITROGEN 31 MG/DL (7-18); BUN/CREATININE RATIO 19.5 (6.6-38.0); CALCIUM 8.2 MG/DL (8.5-10.1); CREATININE 1.59 MG/DL (0.40-0.90); MAGNESIUM 1.5 MG/DL (1.5-2.4); TOTAL CARBON DIOXIDE 31.8 MMOL/L (24-32); eGFR 32 ML/MIN
[2021-08-22 04:46] LABS: TOTAL PROTEIN 4.8 G/DL (6.4-8.2)
[2021-08-22 04:47] LABS: ALANINE AMINOTRANSFERASE 14 U/L (12-78); ALBUMIN/GLOBULIN RATIO 0.7 (1.1-1.5); ALKALINE PHOSPHATASE 80 IU/L (46-116); ASPARTATE AMINO TRANSFERASE 13 U/L (10-37); VANCOMYCIN,RANDOM 13.7 UG/ML
[2021-08-22] MEDS: amiodarone/D5 360MG/200ML BAG 200 ML IV SCH ×4 (05:49→20:56)
[2021-08-22] MEDS: FENTANYL-0.9 % NACL/PF 100 ML IV PRN ×2 (06:09→07:55)
--- NOTE | 2021-08-22 06:24 | NUR ---
Problems reprioritized. Patient report given, questions answered & plan of care reviewed with WALE Bonilla.
[2021-08-22] MEDS ORDERED: vancomycin/NS 1 GM ADD-VANTAGE 250 ML IV ONE (07:15)
[2021-08-22] MEDS: lactobacillus rhamnosus 10,000 MMU CELLS/CAPSULE NG SCH ×2 (07:51→20:44)
[2021-08-22] MEDS: allopurinol 100mg tablet NG SCH (07:51)
[2021-08-22] MEDS: pantoprazole IV 40 MG in dextrose 5%-water 100 ML IV SCH (07:52)
[2021-08-22] MEDS: potassium Cl 20mEq/100mL bag 100 ML IV PRN (07:52)
[2021-08-22] MEDS: potassium chloride 8mEq ER tablet PO SCH (08:00)
[2021-08-22] MEDS: K and/or MAG REPLACEMENT MC SCH ×2 (08:00→20:00)
[2021-08-22] MEDS: docusate sodium 100mg/10ml UD cup NG SCH ×2 (08:00→20:44)
[2021-08-22] MEDS ORDERED: amiodarone 150mg/dext, iso-os 100 ML IV ONE (10:30)
[2021-08-22] MEDS ORDERED: vancomycin/NS 1 GM ADD-VANTAGE 250 ML IV SCH (11:00)
[2021-08-22] MEDS: midazolam 100mg in NS 100ml 100 ML IV PRN (11:30)
[2021-08-22] MEDS ORDERED: sodium phosphate inj. 15 MMOL in dextrose 5%-water 250 ML IV ONE (12:15)
[2021-08-22] MEDS ORDERED: sodium bicarbonate (8.4%) inj. 150 MEQ in dextrose 5%-water 1,000 ML IV SCH (14:45)
[2021-08-22] MEDS: piperacillin/tazo 3.375gm/50ml 50 ML IV SCH (16:03)
[2021-08-22] MEDS ORDERED: cefTAZidime inj. 1 GM in normal saline 100ml IV soln 100 ML IV SCH (20:00)
[2021-08-22] MEDS: NYSTATIN CREAM - 30GM TUBE TP SCH (20:45)
[2021-08-22] MEDS: heparin, porcine 5000 units/ml vial SQ SCH (20:46)
[2021-08-22] MEDS: insulin glargine (Lantus) pen - multi-dose SQ SCH (21:00)
[2021-08-23] VITALS (24 sets, daily range): BP systolic 99–120; BP diastolic 47–64
[2021-08-23] MEDS: piperacillin/tazo 3.375gm/50ml 50 ML IV SCH (00:20)
[2021-08-23] MEDS: midazolam 100mg in NS 100ml 100 ML IV PRN (01:05)
[2021-08-23] MEDS: FENTANYL-0.9 % NACL/PF 100 ML IV PRN (01:05)
[2021-08-23] MEDS: mineral oil/petrolatum ophthal oint EACHEYE SCH ×4 (01:07→20:00)
[2021-08-23 03:14] LABS: BASOPHILS % (AUTO) 0.4 % (0-1); EOSINOPHILS # (AUTO) 0.1 X10'3 (0-0.9); EOSINOPHILS % (AUTO) 1.4 % (0-6); HEMATOCRIT 30.2 % (35.0-45.0); LYMPHOCYTES # (AUTO) 0.6 X10'3 (1.1-4.8); MEAN CORPUSCULAR HEMOGLOBIN 27.6 PG (27.0-31.0); MEAN CORPUSCULAR HGB CONC 33.2 g/dL (33.0-36.5); MEAN CORPUSCULAR VOLUME 83.2 FL (78-98); MEAN PLATELET VOLUME 8.4 FL (7.4-10.4); MONOCYTES % (AUTO) 10.4 % (2-12); NEUTROPHILS # (AUTO) 8.1 X10'3 (1.8-7.7); NEUTROPHILS % (AUTO) 81.8 % (42-75); PLATELET COUNT 227 X10'3 (140-440); RED BLOOD COUNT 3.64 X10'6 (4.20-5.60); RED CELL DISTRIBUTION WIDTH 17.8 % (11.5-14.5); WHITE BLOOD COUNT 9.9 X10'3 (4.5-11.0)
[2021-08-23] MEDS: ipratropium/albuterol 3ml nebule NEB SCH ×6 (03:15→23:07)
[2021-08-23] MEDS: acetylcysteine 200 MG/ml 4ml vial NG SCH ×6 (03:15→23:07)
[2021-08-23 03:26] LABS: ABG BASE EXCESS 5.5 mmol/L (-2.0-2.0); ABG HCO3 29.6 mmol/L (22.0-26.0); ABG OXYGEN SATURATION 93.5 % (94-97); ABG PO2 (T) 72.4 mmHg (75.0-100.0); ALLEN'S TEST POSITIVE; FCOHb 0.3 % (0.0-3.9); FMetHb 0.1 % (0.0-1.5); FO2Hb 93.1 % (94-97); PATIENT TEMPERATURE 37.4; PEEP 12 cm H2O; RESPIRATORY RATE 16 b/min; TIDAL VOLUME 350 mL; TOTAL HEMOGLOBIN 10.9 G/dl (12.0-16.0)
[2021-08-23 03:53] LABS: ALANINE AMINOTRANSFERASE 14 U/L (12-78); ALBUMIN 1.9 G/DL (3.4-5.0); ALBUMIN/GLOBULIN RATIO 0.6 (1.1-1.5); ALKALINE PHOSPHATASE 82 IU/L (46-116); ANION GAP 11 (8-16); ASPARTATE AMINO TRANSFERASE 8 U/L (10-37); BILIRUBIN,TOTAL 0.5 MG/DL (0.1-1.0); BLOOD UREA NITROGEN 31 MG/DL (7-18); BUN/CREATININE RATIO 17.8 (6.6-38.0); CALCIUM 8.1 MG/DL (8.5-10.1); CHLORIDE 102 MMOL/L (99-107); CREATININE 1.74 MG/DL (0.40-0.90); GLUCOSE 108 MG/DL (70-104); MAGNESIUM 1.5 MG/DL (1.5-2.4); PHOSPHORUS 3.7 MG/DL (2.3-4.5); POTASSIUM 3.7 MMOL/L (3.5-5.1); SODIUM 142 MMOL/L (135-145); TOTAL CARBON DIOXIDE 29.3 MMOL/L (24-32); VANCOMYCIN,RANDOM 20.9 UG/ML; eGFR 29 ML/MIN
[2021-08-23] MEDS ORDERED: albumin (Human) 5% 250ml 250 ML IV ONE ×2 (04:25)
[2021-08-23] MEDS: potassium Cl 20mEq/100mL bag 100 ML IV PRN (04:59)
[2021-08-23] MEDS: amiodarone/D5 360MG/200ML BAG 200 ML IV SCH ×3 (06:05→22:04)
[2021-08-23] MEDS: K and/or MAG REPLACEMENT MC SCH ×2 (08:00→20:00)
[2021-08-23] MEDS: potassium chloride 8mEq ER tablet PO SCH (08:00)
[2021-08-23] MEDS: allopurinol 100mg tablet NG SCH (08:22)
[2021-08-23] MEDS: docusate sodium 100mg/10ml UD cup NG SCH ×2 (08:22→21:20)
[2021-08-23] MEDS: lactobacillus rhamnosus 10,000 MMU CELLS/CAPSULE NG SCH ×2 (08:22→21:20)
[2021-08-23] MEDS: pantoprazole IV 40 MG in dextrose 5%-water 100 ML IV SCH (08:22)
[2021-08-23] MEDS: heparin, porcine 5000 units/ml vial SQ SCH ×2 (08:58→21:22)
[2021-08-23 09:21] LABS: BASOPHILS # (AUTO) 0.1 X10'3 (0-0.2); BASOPHILS % (AUTO) 1.7 % (0-1); EOSINOPHILS # (AUTO) 0.2 X10'3 (0-0.9); EOSINOPHILS % (AUTO) 1.9 % (0-6); HEMATOCRIT 26.5 % (35.0-45.0); HEMOGLOBIN 8.9 g/dl (12.0-16.0); LYMPHOCYTES # (AUTO) 0.4 X10'3 (1.1-4.8); LYMPHOCYTES % (AUTO) 5.4 % (21-51); MEAN CORPUSCULAR HEMOGLOBIN 27.6 PG (27.0-31.0); MEAN CORPUSCULAR HGB CONC 33.5 g/dL (33.0-36.5); MEAN CORPUSCULAR VOLUME 82.6 FL (78-98); MEAN PLATELET VOLUME 8.2 FL (7.4-10.4); MONOCYTES # (AUTO) 0.7 X10'3 (0-0.9); MONOCYTES % (AUTO) 9.4 % (2-12); NEUTROPHILS # (AUTO) 6.4 X10'3 (1.8-7.7); NEUTROPHILS % (AUTO) 81.6 % (42-75); PLATELET COUNT 177 X10'3 (140-440); RED BLOOD COUNT 3.21 X10'6 (4.20-5.60); RED CELL DISTRIBUTION WIDTH 17.7 % (11.5-14.5); WHITE BLOOD COUNT 7.9 X10'3 (4.5-11.0)
[2021-08-23 09:31] LABS: APTT 37 SECONDS (22-32)
[2021-08-23 09:37] LABS: ALANINE AMINOTRANSFERASE 12 U/L (12-78); ALBUMIN 2.2 G/DL (3.4-5.0); ALBUMIN/GLOBULIN RATIO 0.8 (1.1-1.5); ALKALINE PHOSPHATASE 71 IU/L (46-116); ANION GAP 10 (8-16); ASPARTATE AMINO TRANSFERASE 16 U/L (10-37); BILIRUBIN,TOTAL 0.6 MG/DL (0.1-1.0); BLOOD UREA NITROGEN 32 MG/DL (7-18); BUN/CREATININE RATIO 19.5 (6.6-38.0); CALCIUM 7.8 MG/DL (8.5-10.1); CHLORIDE 99 MMOL/L (99-107); CREATININE 1.64 MG/DL (0.40-0.90); GLUCOSE 233 MG/DL (70-104); MAGNESIUM 1.5 MG/DL (1.5-2.4); POTASSIUM 3.9 MMOL/L (3.5-5.1); SODIUM 137 MMOL/L (135-145); TOTAL CARBON DIOXIDE 28.3 MMOL/L (24-32); eGFR 31 ML/MIN
[2021-08-23] MEDS ORDERED: furosemide 40mg/4ml inj IV ONE (10:50)
[2021-08-23] MEDS: NYSTATIN CREAM - 30GM TUBE TP SCH ×2 (10:59→21:22)
--- NOTE | 2021-08-23 11:55 | NUR ---
TF consult: Pt remains intubated with an NG tube in place, to begin TF per MD, see recommendations below. Noted pt with T2DM, well controlled for age with A1c 7.6%, down from 8.0% in July of this year per EMR, DM education not warranted at this time. LBM 08/19, receiving routine bowel care with PRN MoM available. Will continue to follow closely. Recommendations: 1. Continuous TF via NGT using Vital AF with 70 mL/r goal to provide 1680 mL total volume/day, 57148 kcal, 126 g protein, and 1362 mL water 2. Additional free water per MD; pt previously on 2L fluid restriction with h/o CHF 3. PALB q Sunday/ 4. Daily scaled weights 5. Routine bowel care 6. Advance to heart healthy diet as medically indicated following extubation; monitor BG levels and need for CHO controlled diet, A1c 7.6% Addendum: 08/23/21 at [address] Amended: Links added.
[2021-08-23] MEDS: insulin glargine (Lantus) pen - multi-dose SQ SCH (21:00)
[2021-08-23] MEDS: furosemide 40mg/4ml inj IV SCH (21:23)
[2021-08-24] VITALS (26 sets, daily range): BP systolic 85–125; BP diastolic 43–67
[2021-08-24] MEDS: midazolam 100mg in NS 100ml 100 ML IV PRN (00:14)
[2021-08-24] MEDS: amiodarone/D5 360MG/200ML BAG 200 ML IV SCH ×4 (00:17→19:50)
[2021-08-24] MEDS: mineral oil/petrolatum ophthal oint EACHEYE SCH ×4 (02:27→19:52)
[2021-08-24] MEDS: VANCOMYCIN LEVEL IV SCH (02:27)
[2021-08-24 02:53] LABS: BASOPHILS # (AUTO) 0.1 X10'3 (0-0.2); BASOPHILS % (AUTO) 1.1 % (0-1); EOSINOPHILS # (AUTO) 0.2 X10'3 (0-0.9); HEMATOCRIT 30.4 % (35.0-45.0); HEMOGLOBIN 9.8 g/dl (12.0-16.0); LYMPHOCYTES # (AUTO) 0.4 X10'3 (1.1-4.8); LYMPHOCYTES % (AUTO) 4.2 % (21-51); MEAN CORPUSCULAR HEMOGLOBIN 26.9 PG (27.0-31.0); MEAN CORPUSCULAR HGB CONC 32.2 g/dL (33.0-36.5); MEAN CORPUSCULAR VOLUME 83.6 FL (78-98); MEAN PLATELET VOLUME 8.9 FL (7.4-10.4); MONOCYTES # (AUTO) 1.2 X10'3 (0-0.9); MONOCYTES % (AUTO) 11.4 % (2-12); NEUTROPHILS # (AUTO) 8.6 X10'3 (1.8-7.7); NEUTROPHILS % (AUTO) 81.3 % (42-75); PLATELET COUNT 229 X10'3 (140-440); RED BLOOD COUNT 3.64 X10'6 (4.20-5.60); WHITE BLOOD COUNT 10.6 X10'3 (4.5-11.0)
[2021-08-24 03:22] LABS: ALANINE AMINOTRANSFERASE 11 U/L (12-78); ALBUMIN 2.1 G/DL (3.4-5.0); ALBUMIN/GLOBULIN RATIO 0.7 (1.1-1.5); ALKALINE PHOSPHATASE 92 IU/L (46-116); ANION GAP 11 (8-16); ASPARTATE AMINO TRANSFERASE 9 U/L (10-37); BILIRUBIN,TOTAL 0.5 MG/DL (0.1-1.0); BLOOD UREA NITROGEN 34 MG/DL (7-18); BUN/CREATININE RATIO 18.7 (6.6-38.0); CALCIUM 8.1 MG/DL (8.5-10.1); CHLORIDE 101 MMOL/L (99-107); CREATININE 1.82 MG/DL (0.40-0.90); GLUCOSE 172 MG/DL (70-104); MAGNESIUM 1.5 MG/DL (1.5-2.4); PHOSPHORUS 4.2 MG/DL (2.3-4.5); POTASSIUM 3.5 MMOL/L (3.5-5.1); SODIUM 141 MMOL/L (135-145); TOTAL CARBON DIOXIDE 29.2 MMOL/L (24-32); TOTAL PROTEIN 5.3 G/DL (6.4-8.2); VANCOMYCIN,RANDOM 15.5 UG/ML; eGFR 27 ML/MIN
[2021-08-24] MEDS: acetylcysteine 200 MG/ml 4ml vial NG SCH ×3 (03:45→11:00)
[2021-08-24] MEDS: ipratropium/albuterol 3ml nebule NEB SCH ×6 (03:45→23:21)
[2021-08-24] MEDS: FENTANYL-0.9 % NACL/PF 100 ML IV PRN (03:49)
[2021-08-24 03:58] LABS: ABG BASE EXCESS 2.5 mmol/L (-2.0-2.0); ABG HCO3 26.8 mmol/L (22.0-26.0); ABG OXYGEN SATURATION 89.6 % (94-97); ABG PCO2 (T) 41.5 mmHg (32.0-45.0); ABG PO2 (T) 64.1 mmHg (75.0-100.0); ALLEN'S TEST POSITIVE; FCOHb 0.3 % (0.0-3.9); FMetHb 0.2 % (0.0-1.5); FO2Hb 89.2 % (94-97); PATIENT TEMPERATURE 37.7; PEEP 12 cm H2O; RESPIRATORY RATE 16 b/min; TIDAL VOLUME 350 mL; TOTAL HEMOGLOBIN 11.2 G/dl (12.0-16.0)
[2021-08-24] MEDS ORDERED: potassium Cl 20 mEq/100mL bag IV ONE (04:45)
[2021-08-24] MEDS: potassium Cl 20mEq/100mL bag 100 ML IV PRN ×2 (05:04→08:00)
[2021-08-24] MEDS: pantoprazole IV 40 MG in dextrose 5%-water 100 ML IV SCH (07:58)
[2021-08-24] MEDS: docusate sodium 100mg/10ml UD cup NG SCH ×2 (07:58→19:52)
[2021-08-24] MEDS ORDERED: LIDOcaine 1% 30ml preserv. free vial IJ STA (07:59)
[2021-08-24] MEDS: heparin, porcine 5000 units/ml vial SQ SCH ×2 (08:00→19:53)
[2021-08-24] MEDS: furosemide 40mg/4ml inj IV SCH ×2 (08:00→19:52)
[2021-08-24] MEDS: lactobacillus rhamnosus 10,000 MMU CELLS/CAPSULE NG SCH ×2 (08:00→19:52)
[2021-08-24] MEDS: potassium chloride 8mEq ER tablet PO SCH (08:00)
[2021-08-24] MEDS: allopurinol 100mg tablet NG SCH (08:01)
[2021-08-24] MEDS: NYSTATIN CREAM - 30GM TUBE TP SCH ×2 (08:02→19:53)
[2021-08-24] MEDS: K and/or MAG REPLACEMENT MC SCH ×2 (08:02→20:00)
[2021-08-24] MEDS: insulin regular, human U-100 3ml vial - multi-dose SQ SCH ×2 (09:01→21:06)
[2021-08-24 10:01] LABS: LACTATE DEHYDROGENASE 186 U/L (81-234)
[2021-08-24] MEDS ORDERED: potassium Cl 20 mEq SR tablet NG SCH (12:00)
[2021-08-24] MEDS ORDERED: POTASSIUM BICARBONATE/CIT AC 10 MEQ TABLET.EFF NG SCH (12:14)
[2021-08-24] MEDS ORDERED: vancomycin inj 500 MG in normal saline 100ml IV soln 100 ML IV ONE (13:00)
[2021-08-24] MEDS: potassium Cl 20 mEq SR tablet NG SCH (13:25)
[2021-08-24 14:59] LABS: LDH,BODY FLUID 213 U/L
[2021-08-24 15:11] LABS: TOTAL PROTEIN,BODY FLUID < 2.0 G/DL
[2021-08-24 15:13] LABS: LDH,BODY FLUID 92 U/L
[2021-08-24 15:15] LABS: BFAPPEAR CLOUDY; BFCOLOR YELLOW
[2021-08-24 15:16] LABS: BF RBC COUNT 275 /CU MM; BF WBC COUNT 3600 /CU MM (0-1000); BFVOLUME 10 ML; LYMPHOCYTES,BODY FLUID 3 %; MONOCYTES,BODY FLUID 6 %; NEUTROPHILS,BODY FLUID 91 %
[2021-08-24 15:17] LABS: BF MESOTHELIAL CELLS OCCASIONAL
[2021-08-24 15:29] LABS: LYMPHOCYTES,BODY FLUID 67 %; MONOCYTES,BODY FLUID 7 %; NEUTROPHILS,BODY FLUID 26 %
[2021-08-24 15:30] LABS: BFAPPEAR HAZY
[2021-08-24 15:31] LABS: BF RBC COUNT 535 /CU MM; BF WBC COUNT 90 /CU MM (0-1000); BFCOLOR YELLOW; BFVOLUME 55 ML
[2021-08-24] MEDS: insulin glargine (Lantus) pen - multi-dose SQ SCH (21:07)
[2021-08-25] VITALS (23 sets, daily range): BP systolic 84–120; BP diastolic 45–87
[2021-08-25] MEDS: amiodarone/D5 360MG/200ML BAG 200 ML IV SCH ×4 (00:33→19:17)
[2021-08-25] MEDS: mineral oil/petrolatum ophthal oint EACHEYE SCH ×4 (02:23→19:47)
[2021-08-25] MEDS: insulin regular, human U-100 3ml vial - multi-dose SQ SCH ×4 (02:32→20:20)
[2021-08-25] MEDS: VANCOMYCIN LEVEL IV SCH (03:06)
[2021-08-25 03:14] LABS: BASOPHILS # (AUTO) 0.1 X10'3 (0-0.2); BASOPHILS % (AUTO) 0.6 % (0-1); EOSINOPHILS # (AUTO) 0.2 X10'3 (0-0.9); EOSINOPHILS % (AUTO) 2.1 % (0-6); HEMATOCRIT 29.3 % (35.0-45.0); HEMOGLOBIN 9.4 g/dl (12.0-16.0); LYMPHOCYTES # (AUTO) 0.6 X10'3 (1.1-4.8); LYMPHOCYTES % (AUTO) 6.4 % (21-51); MEAN CORPUSCULAR HEMOGLOBIN 26.8 PG (27.0-31.0); MEAN CORPUSCULAR HGB CONC 32.1 g/dL (33.0-36.5); MEAN CORPUSCULAR VOLUME 83.5 FL (78-98); MEAN PLATELET VOLUME 9.1 FL (7.4-10.4); MONOCYTES % (AUTO) 10.9 % (2-12); NEUTROPHILS # (AUTO) 7.2 X10'3 (1.8-7.7); PLATELET COUNT 241 X10'3 (140-440); RED BLOOD COUNT 3.51 X10'6 (4.20-5.60); RED CELL DISTRIBUTION WIDTH 18.5 % (11.5-14.5)
[2021-08-25 03:25] LABS: ABG BASE EXCESS 3.7 mmol/L (-2.0-2.0); ABG HCO3 28.4 mmol/L (22.0-26.0); ABG OXYGEN SATURATION 92.8 % (94-97); ABG PCO2 (T) 43.6 mmHg (32.0-45.0); ABG PO2 (T) 70.3 mmHg (75.0-100.0); ALLEN'S TEST POSITIVE; FCOHb 0.3 % (0.0-3.9); FMetHb 0.2 % (0.0-1.5); FO2Hb 92.3 % (94-97); PEEP 12 cm H2O; RESPIRATORY RATE 16 b/min; TIDAL VOLUME 350 mL; TOTAL HEMOGLOBIN 10.5 G/dl (12.0-16.0)
[2021-08-25] MEDS: ipratropium/albuterol 3ml nebule NEB SCH ×6 (03:25→22:53)
[2021-08-25 03:41] LABS: ALANINE AMINOTRANSFERASE 12 U/L (12-78); ALBUMIN 1.8 G/DL (3.4-5.0); ALBUMIN/GLOBULIN RATIO 0.5 (1.1-1.5); ALKALINE PHOSPHATASE 100 IU/L (46-116); ANION GAP 9 (8-16); ASPARTATE AMINO TRANSFERASE 11 U/L (10-37); BILIRUBIN,TOTAL 0.4 MG/DL (0.1-1.0); BLOOD UREA NITROGEN 37 MG/DL (7-18); BUN/CREATININE RATIO 18.3 (6.6-38.0); CALCIUM 8.4 MG/DL (8.5-10.1); CHLORIDE 101 MMOL/L (99-107); CREATININE 2.02 MG/DL (0.40-0.90); GLUCOSE 171 MG/DL (70-104); MAGNESIUM 1.6 MG/DL (1.5-2.4); POTASSIUM 3.8 MMOL/L (3.5-5.1); PREALBUMIN 8.3 MG/DL (19-36); SODIUM 140 MMOL/L (135-145); TOTAL PROTEIN 5.2 G/DL (6.4-8.2); eGFR 24 ML/MIN
--- NOTE | 2021-08-25 06:24 | NUR ---
Problems reprioritized. Patient report given, questions answered & plan of care reviewed with WALE Bonilla. Pt stable at the time of handoff.
[2021-08-25] MEDS: K and/or MAG REPLACEMENT MC SCH ×3 (08:00→22:15)
[2021-08-25] MEDS: allopurinol 100mg tablet NG SCH (08:00)
[2021-08-25] MEDS: potassium Cl 20 mEq SR tablet NG SCH (09:13)
[2021-08-25] MEDS: lactobacillus rhamnosus 10,000 MMU CELLS/CAPSULE NG SCH ×2 (09:13→19:46)
[2021-08-25] MEDS: furosemide 40mg/4ml inj IV SCH (09:13)
[2021-08-25] MEDS: heparin, porcine 5000 units/ml vial SQ SCH ×2 (09:14→19:46)
[2021-08-25] MEDS: docusate sodium 100mg/10ml UD cup NG SCH ×2 (09:14→19:45)
[2021-08-25] MEDS: NYSTATIN CREAM - 30GM TUBE TP SCH ×2 (09:15→19:47)
[2021-08-25] MEDS: lansoprazole 15mg solutab NG SCH (11:16)
[2021-08-25] MEDS ORDERED: albumin (Human) 5% 250ml 500 ML IV ONE (11:25)
[2021-08-25] MEDS ORDERED: mineral oil 133ml enema RC ONE (11:25)
--- NOTE | 2021-08-25 12:01 | NUR ---
F/u: MD agrees to water flushes as this time, see recommendations below. LBM 08/19 while receiving routine bowel care, d/w MD. Pt to receive one time Enema per MD. Recommendations: 1. Continuous TF via NGT using Vital AF with 70 mL/r goal to provide 1680 mL total volume/day, 62137 kcal, 126 g protein, and 1362 mL water 2. Additional 150 mL water flush Q4H; monitor serum Na 3. PALB q Sunday/ 4. Daily scaled weights 5. Routine bowel care 6. Advance to heart healthy diet as medically indicated following extubation; monitor BG levels and need for CHO controlled diet, A1c 7.6% 7. Continue with NGTF following extubation until pt able tolerate at least 65% PO intake of meals given suboptimal PO intake prior to intubation Addendum: 08/25/21 at [address] Amended: Links added.
[2021-08-25] MEDS: furosemide inj 100 MG in normal saline 100ml IV soln 90 ML IV SCH ×2 (12:42→18:40)
[2021-08-25] MEDS: midazolam 100mg in NS 100ml 100 ML IV PRN (12:43)
[2021-08-25] MEDS ORDERED: Dextrose 10%-water IV solution 1,000 ML IV SCH (12:55)
[2021-08-25] MEDS ORDERED: normal saline 1000ml 1,000 ML IV ONE (18:50)
[2021-08-25] MEDS ORDERED: potassium Cl 20 mEq SR tablet PO PRN ×2 (19:00)
[2021-08-25] MEDS ORDERED: magnesium Cl slow-release 64mg tablet PO PRN (19:00)
[2021-08-25] MEDS: furosemide inj 1,000 MG in normal saline 250ml IV soln 150 ML IV SCH (20:01)
[2021-08-25] MEDS: insulin glargine (Lantus) pen - multi-dose SQ SCH (20:21)
--- NOTE | 2021-08-25 21:10 | NUR ---
Pt is now on max dose of Lasix drip at 160mg/hr with no significant improvement in urine output. Dr Morrow made aware and discussed the possibility of discontinuing the Lasix drip. No new orders obtained at this time, will continue the Lasix drip as previously ordered. Serial renal panel and Mg ordered per protocol.
[2021-08-25 21:50] LABS: ANION GAP 11 (8-16); BLOOD UREA NITROGEN 38 MG/DL (7-18); BUN/CREATININE RATIO 19.4 (6.6-38.0); CALCIUM 7.9 MG/DL (8.5-10.1); CHLORIDE 103 MMOL/L (99-107); CREATININE 1.96 MG/DL (0.40-0.90); GLUCOSE 155 MG/DL (70-104); MAGNESIUM 1.4 MG/DL (1.5-2.4); PHOSPHORUS 3.6 MG/DL (2.3-4.5); POTASSIUM 3.9 MMOL/L (3.5-5.1); SODIUM 141 MMOL/L (135-145); eGFR 25 ML/MIN
[2021-08-25] MEDS: FENTANYL-0.9 % NACL/PF 100 ML IV PRN (21:53)
[2021-08-25] MEDS ORDERED: magnesium 4gm in 100ml NS 100 ML IV PRN (22:05)
[2021-08-25] MEDS: magnesium 2GM in 50ml NS 50 ML IV PRN (22:10)
[2021-08-26] VITALS (23 sets, daily range): BP systolic 84–145; BP diastolic 43–74
[2021-08-26 00:25] LABS: ABG BASE EXCESS -0.8 mmol/L (-2.0-2.0); ABG HCO3 24.3 mmol/L (22.0-26.0); ABG OXYGEN SATURATION 91.9 % (94-97); ABG PCO2 (T) 42.6 mmHg (32.0-45.0); ABG PO2 (T) 69.1 mmHg (75.0-100.0); ALLEN'S TEST POSITIVE; FCOHb 0.3 % (0.0-3.9); FMetHb 0.5 % (0.0-1.5); FO2Hb 91.2 % (94-97); PATIENT TEMPERATURE 37.5; PEEP 10 cm H2O; RESPIRATORY RATE 16 b/min; TIDAL VOLUME 350 mL; TOTAL HEMOGLOBIN 9.7 G/dl (12.0-16.0)
[2021-08-26] MEDS: amiodarone/D5 360MG/200ML BAG 200 ML IV SCH ×4 (00:49→20:30)
[2021-08-26] MEDS: mineral oil/petrolatum ophthal oint EACHEYE SCH ×4 (02:33→20:33)
[2021-08-26] MEDS: insulin regular, human U-100 3ml vial - multi-dose SQ SCH ×4 (02:41→20:48)
[2021-08-26] MEDS: ipratropium/albuterol 3ml nebule NEB SCH ×6 (02:58→23:10)
[2021-08-26] MEDS: VANCOMYCIN LEVEL IV SCH (03:00)
[2021-08-26 03:22] LABS: BASOPHILS % (AUTO) 0.5 % (0-1); EOSINOPHILS # (AUTO) 0.2 X10'3 (0-0.9); EOSINOPHILS % (AUTO) 3.3 % (0-6); HEMATOCRIT 26.8 % (35.0-45.0); HEMOGLOBIN 8.6 g/dl (12.0-16.0); LYMPHOCYTES # (AUTO) 0.6 X10'3 (1.1-4.8); LYMPHOCYTES % (AUTO) 8.9 % (21-51); MEAN CORPUSCULAR HEMOGLOBIN 27.1 PG (27.0-31.0); MEAN CORPUSCULAR HGB CONC 32.2 g/dL (33.0-36.5); MEAN CORPUSCULAR VOLUME 84.3 FL (78-98); MONOCYTES # (AUTO) 0.6 X10'3 (0-0.9); MONOCYTES % (AUTO) 9.7 % (2-12); NEUTROPHILS # (AUTO) 5.1 X10'3 (1.8-7.7); NEUTROPHILS % (AUTO) 77.6 % (42-75); PLATELET COUNT 214 X10'3 (140-440); RED BLOOD COUNT 3.18 X10'6 (4.20-5.60); RED CELL DISTRIBUTION WIDTH 18.3 % (11.5-14.5); WHITE BLOOD COUNT 6.5 X10'3 (4.5-11.0)
[2021-08-26] MEDS: furosemide inj 1,000 MG in normal saline 250ml IV soln 150 ML IV SCH ×3 (03:37→16:59)
[2021-08-26 03:38] LABS: ALANINE AMINOTRANSFERASE 15 U/L (12-78); ALBUMIN/GLOBULIN RATIO 0.6 (1.1-1.5); ALKALINE PHOSPHATASE 130 IU/L (46-116); ANION GAP 10 (8-16); ASPARTATE AMINO TRANSFERASE 17 U/L (10-37); BILIRUBIN,TOTAL 0.3 MG/DL (0.1-1.0); BLOOD UREA NITROGEN 40 MG/DL (7-18); CALCIUM 8.1 MG/DL (8.5-10.1); CHLORIDE 102 MMOL/L (99-107); GLUCOSE 168 MG/DL (70-104); MAGNESIUM 2.2 MG/DL (1.5-2.4); PHOSPHORUS 3.4 MG/DL (2.3-4.5); POTASSIUM 3.8 MMOL/L (3.5-5.1); SODIUM 140 MMOL/L (135-145); TOTAL CARBON DIOXIDE 27.6 MMOL/L (24-32); TOTAL PROTEIN 5.2 G/DL (6.4-8.2); VANCOMYCIN,RANDOM 15.1 UG/ML; eGFR 24 ML/MIN
[2021-08-26] MEDS: potassium Cl 20 mEq SR tablet NG SCH (07:38)
[2021-08-26] MEDS: lansoprazole 15mg solutab NG SCH (07:38)
[2021-08-26] MEDS: lactobacillus rhamnosus 10,000 MMU CELLS/CAPSULE NG SCH ×2 (07:39→20:31)
[2021-08-26] MEDS: docusate sodium 100mg/10ml UD cup NG SCH ×2 (07:39→20:31)
[2021-08-26] MEDS: allopurinol 100mg tablet NG SCH (07:39)
[2021-08-26] MEDS: heparin, porcine 5000 units/ml vial SQ SCH ×2 (07:39→20:32)
[2021-08-26] MEDS: K and/or MAG REPLACEMENT MC SCH ×3 (08:00→20:33)
[2021-08-26] MEDS: NYSTATIN CREAM - 30GM TUBE TP SCH ×2 (08:20→20:32)
[2021-08-26 09:51] LABS: ANION GAP 10 (8-16); BLOOD UREA NITROGEN 44 MG/DL (7-18); BUN/CREATININE RATIO 21.4 (6.6-38.0); CALCIUM 8.1 MG/DL (8.5-10.1); CHLORIDE 101 MMOL/L (99-107); CREATININE 2.06 MG/DL (0.40-0.90); GLUCOSE 144 MG/DL (70-104); PHOSPHORUS 3.5 MG/DL (2.3-4.5); POTASSIUM 3.6 MMOL/L (3.5-5.1); SODIUM 140 MMOL/L (135-145); eGFR 23 ML/MIN
[2021-08-26] MEDS ORDERED: normal saline 1000ml 1,000 ML IVB ONE (10:40)
[2021-08-26] MEDS: metoclopramide 5 mg/ml inj IV SCH ×2 (10:53→15:52)
[2021-08-26] MEDS: FENTANYL-0.9 % NACL/PF 100 ML IV PRN (10:54)
--- NOTE | 2021-08-26 11:21 | NUR ---
Reassessment: Pt remains intubated. GRV slightly elevated with range 150-400 mL over the last 24 hours. Pt still with no BM since 08/19 despite receiving routine bowel care and one time dose of mineral oil enema 08/25. Pt to begin routine IV Reglan per MD. No changes to nutrition recommendations at this time. Will continue to follow closely. Recommendations: 1. Continuous TF via NGT using Vital AF with 70 mL/r goal to provide 1680 mL total volume/day, 2016 kcal, 126 g protein, and 1362 mL water 2. Additional 150 mL water flush Q4H; monitor serum Na 3. PALB q Sunday/ 4. Daily scaled weights 5. Routine bowel care; routine prokinetic agent per MD; utilize PRN bowel care given 7 days constipation 6. Advance to heart healthy diet as medically indicated following extubation; monitor BG levels and need for CHO controlled diet, A1c 7.6% 7. Continue with NGTF following extubation until pt able tolerate at least 65% PO intake of meals given suboptimal PO intake prior to intubation Addendum: 08/26/21 at [address] Amended: Links added.
[2021-08-26] MEDS ORDERED: vancomycin inj 500 MG in normal saline 100ml IV soln 100 ML IV ONE (12:00)
[2021-08-26 15:56] LABS: ALBUMIN 1.9 G/DL (3.4-5.0); ANION GAP 8 (8-16); BLOOD UREA NITROGEN 40 MG/DL (7-18); BUN/CREATININE RATIO 20.3 (6.6-38.0); CHLORIDE 100 MMOL/L (99-107); CREATININE 1.97 MG/DL (0.40-0.90); GLUCOSE 168 MG/DL (70-104); MAGNESIUM 1.9 MG/DL (1.5-2.4); PHOSPHORUS 3.5 MG/DL (2.3-4.5); POTASSIUM 3.4 MMOL/L (3.5-5.1); SODIUM 136 MMOL/L (135-145); TOTAL CARBON DIOXIDE 28.2 MMOL/L (24-32); eGFR 25 ML/MIN
[2021-08-26] MEDS: potassium Cl 20mEq/100mL bag 100 ML IV PRN ×2 (17:44→18:56)
--- NOTE | 2021-08-26 18:12 | NUR ---
Problems reprioritized. Patient report given, questions answered & plan of care reviewed with Irena ECHEVARRIA.
[2021-08-26] MEDS: amiodarone 200mg tablet PO SCH (20:32)
[2021-08-26] MEDS: insulin glargine (Lantus) pen - multi-dose SQ SCH (20:46)
[2021-08-26 22:19] LABS: ANION GAP 5 (8-16); BLOOD UREA NITROGEN 40 MG/DL (7-18); BUN/CREATININE RATIO 20.5 (6.6-38.0); CALCIUM 8.1 MG/DL (8.5-10.1); CHLORIDE 101 MMOL/L (99-107); CREATININE 1.95 MG/DL (0.40-0.90); GLUCOSE 167 MG/DL (70-104); MAGNESIUM 1.9 MG/DL (1.5-2.4); PHOSPHORUS 3.7 MG/DL (2.3-4.5); POTASSIUM 4.4 MMOL/L (3.5-5.1); SODIUM 134 MMOL/L (135-145); TOTAL CARBON DIOXIDE 28.4 MMOL/L (24-32); eGFR 25 ML/MIN
[2021-08-27] VITALS (21 sets, daily range): BP systolic 76–127; BP diastolic 43–61
[2021-08-27] MEDS: metoclopramide 5 mg/ml inj IV SCH ×3 (00:03→16:24)
--- NOTE | 2021-08-27 00:46 | NUR ---
Water flush held as pt's Na is 134. Addendum: 08/27/21 at 0046 by Irena Arthur RN Amended: Links added.
[2021-08-27] MEDS: amiodarone/D5 360MG/200ML BAG 200 ML IV SCH ×4 (01:05→19:17)
[2021-08-27] MEDS: mineral oil/petrolatum ophthal oint EACHEYE SCH ×4 (02:11→20:00)
[2021-08-27] MEDS: insulin regular, human U-100 3ml vial - multi-dose SQ SCH ×3 (02:14→22:24)
[2021-08-27] MEDS: VANCOMYCIN LEVEL IV SCH (03:00)
[2021-08-27] MEDS: ipratropium/albuterol 3ml nebule NEB SCH ×6 (03:00→22:35)
[2021-08-27 03:14] LABS: ABG BASE EXCESS 2.4 mmol/L (-2.0-2.0); ABG HCO3 28.4 mmol/L (22.0-26.0); ABG OXYGEN SATURATION 91.6 % (94-97); ABG PCO2 (T) 51.7 mmHg (32.0-45.0); ABG PO2 (T) 66.8 mmHg (75.0-100.0); ALLEN'S TEST POSITIVE; FCOHb 0.3 % (0.0-3.9); FMetHb 0.4 % (0.0-1.5); PATIENT TEMPERATURE 37.4; PEEP 9 cm H2O; RESPIRATORY RATE 16 b/min; TIDAL VOLUME 350 mL; TOTAL HEMOGLOBIN 10.5 G/dl (12.0-16.0)
[2021-08-27] MEDS: FENTANYL-0.9 % NACL/PF 100 ML IV PRN ×2 (04:36→22:28)
[2021-08-27 05:12] LABS: BASOPHILS % (AUTO) 0.6 % (0-1); EOSINOPHILS # (AUTO) 0.3 X10'3 (0-0.9); EOSINOPHILS % (AUTO) 3.9 % (0-6); HEMATOCRIT 27.5 % (35.0-45.0); HEMOGLOBIN 8.9 g/dl (12.0-16.0); LYMPHOCYTES # (AUTO) 0.6 X10'3 (1.1-4.8); LYMPHOCYTES % (AUTO) 7.9 % (21-51); MEAN CORPUSCULAR HEMOGLOBIN 27.4 PG (27.0-31.0); MEAN CORPUSCULAR HGB CONC 32.4 g/dL (33.0-36.5); MEAN CORPUSCULAR VOLUME 84.7 FL (78-98); MEAN PLATELET VOLUME 8.8 FL (7.4-10.4); MONOCYTES % (AUTO) 13.2 % (2-12); NEUTROPHILS # (AUTO) 5.7 X10'3 (1.8-7.7); NEUTROPHILS % (AUTO) 74.4 % (42-75); PLATELET COUNT 290 X10'3 (140-440); RED BLOOD COUNT 3.25 X10'6 (4.20-5.60); RED CELL DISTRIBUTION WIDTH 18.2 % (11.5-14.5); WHITE BLOOD COUNT 7.7 X10'3 (4.5-11.0)
[2021-08-27 05:21] LABS: ALANINE AMINOTRANSFERASE 27 U/L (12-78); ALBUMIN 1.9 G/DL (3.4-5.0); ALBUMIN/GLOBULIN RATIO 0.6 (1.1-1.5); ALKALINE PHOSPHATASE 191 IU/L (46-116); ANION GAP 5 (8-16); ASPARTATE AMINO TRANSFERASE 22 U/L (10-37); BILIRUBIN,TOTAL 0.4 MG/DL (0.1-1.0); BLOOD UREA NITROGEN 41 MG/DL (7-18); BUN/CREATININE RATIO 20.7 (6.6-38.0); CALCIUM 8.4 MG/DL (8.5-10.1); CHLORIDE 101 MMOL/L (99-107); CREATININE 1.98 MG/DL (0.40-0.90); GLUCOSE 125 MG/DL (70-104); MAGNESIUM 1.9 MG/DL (1.5-2.4); PHOSPHORUS 3.7 MG/DL (2.3-4.5); POTASSIUM 3.6 MMOL/L (3.5-5.1); SODIUM 136 MMOL/L (135-145); TOTAL CARBON DIOXIDE 29.9 MMOL/L (24-32); TOTAL PROTEIN 5.2 G/DL (6.4-8.2); VANCOMYCIN,RANDOM 19.8 UG/ML; eGFR 25 ML/MIN
[2021-08-27] MEDS: potassium Cl 20mEq/100mL bag 100 ML IV PRN (05:52)
--- NOTE | 2021-08-27 06:38 | NUR ---
Problems reprioritized. Patient report given, questions answered & plan of care reviewed with oncoming RN. Pt stable at the time of handoff.
[2021-08-27] MEDS: potassium Cl 20 mEq SR tablet NG SCH (10:34)
[2021-08-27] MEDS: allopurinol 100mg tablet NG SCH (10:34)
[2021-08-27] MEDS: amiodarone 200mg tablet PO SCH ×2 (10:35→22:13)
[2021-08-27] MEDS: heparin, porcine 5000 units/ml vial SQ SCH ×2 (10:35→22:12)
[2021-08-27] MEDS: lansoprazole 15mg solutab NG SCH (10:35)
[2021-08-27] MEDS: lactobacillus rhamnosus 10,000 MMU CELLS/CAPSULE NG SCH ×2 (10:36→22:12)
[2021-08-27] MEDS: K and/or MAG REPLACEMENT MC SCH ×3 (10:36→20:00)
[2021-08-27] MEDS: furosemide inj 1,000 MG in normal saline 250ml IV soln 150 ML IV SCH (10:38)
[2021-08-27] MEDS: NYSTATIN CREAM - 30GM TUBE TP SCH ×2 (10:38→22:12)
[2021-08-27] MEDS: docusate sodium 100mg/10ml UD cup NG SCH ×2 (10:39→22:11)
--- NOTE | 2021-08-27 18:30 | NUR ---
[facility] I have received report from Alejandro ECHEVARRIA and had the opportunity to ask questions and assume patient care. Addendum: 08/27/21 at 2344 by Angela Allen RN Amended: Links added. Addendum: 08/28/21 at 0004 by Angela Allen RN 1830: Out of ratio. Currently assigned 3 patients including 2 on ventilators.
[2021-08-27] MEDS: insulin glargine (Lantus) pen - multi-dose SQ SCH (22:26)
[2021-08-28] VITALS (24 sets, daily range): BP systolic 86–125; BP diastolic 46–67
[2021-08-28] MEDS: metoclopramide 5 mg/ml inj IV SCH ×4 (00:33→23:29)
[2021-08-28] MEDS: furosemide inj 1,000 MG in normal saline 250ml IV soln 150 ML IV SCH (00:33)
[2021-08-28] MEDS: amiodarone/D5 360MG/200ML BAG 200 ML IV SCH ×4 (01:21→19:33)
[2021-08-28] MEDS: mineral oil/petrolatum ophthal oint EACHEYE SCH ×4 (02:00→20:23)
[2021-08-28] MEDS: ipratropium/albuterol 3ml nebule NEB SCH ×6 (02:49→23:02)
[2021-08-28] MEDS: VANCOMYCIN LEVEL IV SCH (03:00)
[2021-08-28 03:01] LABS: ABG BASE EXCESS 3.5 mmol/L (-2.0-2.0); ABG HCO3 29.5 mmol/L (22.0-26.0); ABG OXYGEN SATURATION 90.8 % (94-97); ABG PCO2 (T) 53.8 mmHg (32.0-45.0); ABG PO2 (T) 67.3 mmHg (75.0-100.0); ALLEN'S TEST POSITIVE; FCOHb 0.3 % (0.0-3.9); FMetHb 0.2 % (0.0-1.5); FO2Hb 90.3 % (94-97); PATIENT TEMPERATURE 37.7; PEEP 8 cm H2O; RESPIRATORY RATE 16 b/min; TIDAL VOLUME 350 mL; TOTAL HEMOGLOBIN 9.8 G/dl (12.0-16.0)
[2021-08-28] MEDS: insulin regular, human U-100 3ml vial - multi-dose SQ SCH ×3 (03:33→20:31)
[2021-08-28 03:53] LABS: BASOPHILS # (AUTO) 0.1 X10'3 (0-0.2); BASOPHILS % (AUTO) 0.7 % (0-1); EOSINOPHILS # (AUTO) 0.2 X10'3 (0-0.9); EOSINOPHILS % (AUTO) 2.5 % (0-6); HEMATOCRIT 28.3 % (35.0-45.0); HEMOGLOBIN 9.1 g/dl (12.0-16.0); LYMPHOCYTES # (AUTO) 0.7 X10'3 (1.1-4.8); LYMPHOCYTES % (AUTO) 7.1 % (21-51); MEAN CORPUSCULAR HEMOGLOBIN 27.3 PG (27.0-31.0); MEAN CORPUSCULAR HGB CONC 32.2 g/dL (33.0-36.5); MEAN CORPUSCULAR VOLUME 84.7 FL (78-98); MEAN PLATELET VOLUME 8.2 FL (7.4-10.4); MONOCYTES # (AUTO) 1.2 X10'3 (0-0.9); MONOCYTES % (AUTO) 13.5 % (2-12); NEUTROPHILS % (AUTO) 76.2 % (42-75); PLATELET COUNT 369 X10'3 (140-440); RED BLOOD COUNT 3.34 X10'6 (4.20-5.60); RED CELL DISTRIBUTION WIDTH 18.2 % (11.5-14.5); WHITE BLOOD COUNT 9.2 X10'3 (4.5-11.0)
[2021-08-28 03:57] LABS: ALANINE AMINOTRANSFERASE 24 U/L (12-78); ALBUMIN 1.9 G/DL (3.4-5.0); ALBUMIN/GLOBULIN RATIO 0.6 (1.1-1.5); ALKALINE PHOSPHATASE 165 IU/L (46-116); ANION GAP 8 (8-16); ASPARTATE AMINO TRANSFERASE 17 U/L (10-37); BILIRUBIN,TOTAL 0.4 MG/DL (0.1-1.0); BLOOD UREA NITROGEN 50 MG/DL (7-18); BUN/CREATININE RATIO 23.8 (6.6-38.0); CALCIUM 8.7 MG/DL (8.5-10.1); CHLORIDE 99 MMOL/L (99-107); GLUCOSE 179 MG/DL (70-104); MAGNESIUM 1.8 MG/DL (1.5-2.4); POTASSIUM 3.7 MMOL/L (3.5-5.1); SODIUM 137 MMOL/L (135-145); TOTAL CARBON DIOXIDE 29.9 MMOL/L (24-32); TOTAL PROTEIN 5.2 G/DL (6.4-8.2); VANCOMYCIN,RANDOM 15.1 UG/ML; eGFR 23 ML/MIN
--- NOTE | 2021-08-28 06:26 | NUR ---
[id number] Dr. Alvarenga updated on patient's status during rounds. Orders received. Problems reprioritized. Patient report given, questions answered & plan of care reviewed with Lewis ECHEVARRIA.
[2021-08-28] MEDS: K and/or MAG REPLACEMENT MC SCH ×3 (08:00→20:00)
[2021-08-28] MEDS: allopurinol 100mg tablet NG SCH (09:02)
[2021-08-28] MEDS: potassium Cl 20 mEq SR tablet NG SCH (09:03)
[2021-08-28] MEDS: lactobacillus rhamnosus 10,000 MMU CELLS/CAPSULE NG SCH ×2 (09:03→20:22)
[2021-08-28] MEDS: amiodarone 200mg tablet PO SCH ×2 (09:03→20:22)
[2021-08-28] MEDS: NYSTATIN CREAM - 30GM TUBE TP SCH ×2 (09:04→20:23)
[2021-08-28] MEDS: heparin, porcine 5000 units/ml vial SQ SCH ×2 (09:04→20:23)
[2021-08-28] MEDS: docusate sodium 100mg/10ml UD cup NG SCH ×2 (09:10→20:22)
[2021-08-28] MEDS: lansoprazole 15mg solutab NG SCH (09:10)
--- NOTE | 2021-08-28 18:30 | NUR ---
Patient in room CICU 2016. I have received report from WALE Mena and had the opportunity to ask questions and assume patient care. Patient is intubated/sedated, but not opening eyes yet, she is moving head side to side. I will continue to monitor.
[2021-08-28] MEDS: insulin glargine (Lantus) pen - multi-dose SQ SCH (20:32)
[2021-08-29] VITALS (25 sets, daily range): BP systolic 89–129; BP diastolic 48–67
[2021-08-29] MEDS: insulin regular, human U-100 3ml vial - multi-dose SQ SCH ×2 (02:19→20:25)
[2021-08-29] MEDS: mineral oil/petrolatum ophthal oint EACHEYE SCH ×4 (02:20→20:00)
[2021-08-29] MEDS: ipratropium/albuterol 3ml nebule NEB SCH ×5 (02:57→23:10)
[2021-08-29] MEDS: VANCOMYCIN LEVEL IV SCH (03:00)
[2021-08-29 03:21] LABS: ABG BASE EXCESS 5.5 mmol/L (-2.0-2.0); ABG HCO3 31.5 mmol/L (22.0-26.0); ABG OXYGEN SATURATION 91.6 % (94-97); ABG PCO2 (T) 56.1 mmHg (32.0-45.0); ABG PO2 (T) 68.3 mmHg (75.0-100.0); ALLEN'S TEST Modified; FCOHb 0.3 % (0.0-3.9); FMetHb 0.1 % (0.0-1.5); FO2Hb 91.2 % (94-97); PATIENT TEMPERATURE 37.9; PEEP 8 cm H2O; RESPIRATORY RATE 16 b/min; TIDAL VOLUME 350 mL; TOTAL HEMOGLOBIN 9.7 G/dl (12.0-16.0)
[2021-08-29 03:56] LABS: BASOPHILS # (AUTO) 0.1 X10'3 (0-0.2); BASOPHILS % (AUTO) 0.9 % (0-1); EOSINOPHILS # (AUTO) 0.2 X10'3 (0-0.9); EOSINOPHILS % (AUTO) 2.2 % (0-6); HEMOGLOBIN 8.6 g/dl (12.0-16.0); LYMPHOCYTES # (AUTO) 0.7 X10'3 (1.1-4.8); LYMPHOCYTES % (AUTO) 7.8 % (21-51); MEAN CORPUSCULAR HGB CONC 31.9 g/dL (33.0-36.5); MEAN CORPUSCULAR VOLUME 84.5 FL (78-98); MEAN PLATELET VOLUME 8.1 FL (7.4-10.4); MONOCYTES # (AUTO) 1.3 X10'3 (0-0.9); MONOCYTES % (AUTO) 14.6 % (2-12); NEUTROPHILS # (AUTO) 6.9 X10'3 (1.8-7.7); NEUTROPHILS % (AUTO) 74.5 % (42-75); PLATELET COUNT 399 X10'3 (140-440); RED CELL DISTRIBUTION WIDTH 18.7 % (11.5-14.5); WHITE BLOOD COUNT 9.3 X10'3 (4.5-11.0)
[2021-08-29 03:57] LABS: ALANINE AMINOTRANSFERASE 20 U/L (12-78); ALBUMIN 1.8 G/DL (3.4-5.0); ALBUMIN/GLOBULIN RATIO 0.5 (1.1-1.5); ALKALINE PHOSPHATASE 152 IU/L (46-116); ANION GAP 9 (8-16); ASPARTATE AMINO TRANSFERASE 13 U/L (10-37); BILIRUBIN,TOTAL 0.4 MG/DL (0.1-1.0); BLOOD UREA NITROGEN 60 MG/DL (7-18); BUN/CREATININE RATIO 27.4 (6.6-38.0); CALCIUM 8.4 MG/DL (8.5-10.1); CHLORIDE 99 MMOL/L (99-107); CREATININE 2.19 MG/DL (0.40-0.90); GLUCOSE 199 MG/DL (70-104); MAGNESIUM 1.8 MG/DL (1.5-2.4); POTASSIUM 3.5 MMOL/L (3.5-5.1); SODIUM 138 MMOL/L (135-145); TOTAL CARBON DIOXIDE 29.9 MMOL/L (24-32); TOTAL PROTEIN 5.3 G/DL (6.4-8.2); eGFR 22 ML/MIN
[2021-08-29 06:00] LABS: ANISOCYTOSIS 2+; PLATELET ESTIMATE NORMAL
--- NOTE | 2021-08-29 06:12 | NUR ---
Problems reprioritized. Patient report given, questions answered & plan of care reviewed with WALE Mena.
[2021-08-29] MEDS ORDERED: vancomycin/NS 1 GM ADD-VANTAGE 250 ML IV ONE (06:55)
[2021-08-29] MEDS: K and/or MAG REPLACEMENT MC SCH (08:00)
[2021-08-29] MEDS: heparin, porcine 5000 units/ml vial SQ SCH ×2 (08:01→21:28)
[2021-08-29] MEDS: lansoprazole 15mg solutab NG SCH (08:08)
[2021-08-29] MEDS: docusate sodium 100mg/10ml UD cup NG SCH ×2 (08:08→21:27)
[2021-08-29] MEDS: lactobacillus rhamnosus 10,000 MMU CELLS/CAPSULE NG SCH ×2 (08:09→21:29)
[2021-08-29] MEDS: potassium Cl 20 mEq SR tablet NG SCH (08:09)
[2021-08-29] MEDS: amiodarone 200mg tablet PO SCH ×2 (08:09→21:29)
[2021-08-29] MEDS: metoclopramide 5 mg/ml inj IV SCH ×2 (08:09→17:06)
[2021-08-29] MEDS: allopurinol 100mg tablet NG SCH (08:09)
[2021-08-29] MEDS: NYSTATIN CREAM - 30GM TUBE TP SCH ×2 (08:22→20:00)
--- NOTE | 2021-08-29 13:29 | NUR ---
F/u 08/29: Pt remains intubated tolerating TF at goal GRV WNL. Two BM's 08/27 now w/ diarrhea noted per EMR following prior 8 days constipation period. Will continue to monitor for TF tolerance and adjustment needs. Recommendations: 1. Continuous TF via NGT using Vital AF with 70 mL/r goal to provide 1680 mL total volume/day, 2016 kcal, 126 g protein, and 1362 mL water 2. Additional 150 mL water flush Q4H; monitor serum Na 3. PALB q Sunday/; Daily scaled weights 4. Routine bowel care; routine prokinetic agent per MD 5. Advance to heart healthy diet as medically indicated following extubation; monitor BG levels and need for CHO controlled diet, A1c 7.6% 6. Continue with NGTF following extubation until pt able tolerate at least 65% PO intake of meals given suboptimal PO intake prior to intubation Addendum: 08/29/21 at [address] Amended: Links added.
[2021-08-29] MEDS: insulin glargine (Lantus) pen - multi-dose SQ SCH (20:30)
[2021-08-30] VITALS (23 sets, daily range): BP systolic 106–123; BP diastolic 40–83
[2021-08-30] MEDS: ipratropium/albuterol 3ml nebule NEB SCH ×6 (02:34→23:58)
[2021-08-30 02:56] LABS: ABG BASE EXCESS 6.3 mmol/L (-2.0-2.0); ABG HCO3 29.9 mmol/L (22.0-26.0); ABG PO2 (T) 55.2 mmHg (75.0-100.0); ALLEN'S TEST Modified; FMetHb 0.1 % (0.0-1.5); FO2Hb 86.9 % (94-97); PATIENT TEMPERATURE 37.6; PEEP 8 cm H2O; RESPIRATORY RATE 16 b/min; TOTAL HEMOGLOBIN 9.3 G/dl (12.0-16.0)
[2021-08-30] MEDS: insulin regular, human U-100 3ml vial - multi-dose SQ SCH ×3 (02:57→20:48)
[2021-08-30] MEDS: VANCOMYCIN LEVEL IV SCH (03:00)
[2021-08-30 03:09] LABS: BASOPHILS # (AUTO) 0.1 X10'3 (0-0.2); BASOPHILS % (AUTO) 0.9 % (0-1); EOSINOPHILS # (AUTO) 0.1 X10'3 (0-0.9); EOSINOPHILS % (AUTO) 1.4 % (0-6); HEMATOCRIT 26.2 % (35.0-45.0); HEMOGLOBIN 8.6 g/dl (12.0-16.0); LYMPHOCYTES # (AUTO) 0.9 X10'3 (1.1-4.8); LYMPHOCYTES % (AUTO) 9.8 % (21-51); MEAN CORPUSCULAR HEMOGLOBIN 27.2 PG (27.0-31.0); MEAN CORPUSCULAR HGB CONC 32.8 g/dL (33.0-36.5); MEAN CORPUSCULAR VOLUME 82.9 FL (78-98); MEAN PLATELET VOLUME 8.1 FL (7.4-10.4); MONOCYTES # (AUTO) 1.2 X10'3 (0-0.9); MONOCYTES % (AUTO) 12.6 % (2-12); NEUTROPHILS # (AUTO) 7.1 X10'3 (1.8-7.7); NEUTROPHILS % (AUTO) 75.3 % (42-75); PLATELET COUNT 499 X10'3 (140-440); RED BLOOD COUNT 3.16 X10'6 (4.20-5.60); RED CELL DISTRIBUTION WIDTH 18.5 % (11.5-14.5); WHITE BLOOD COUNT 9.5 X10'3 (4.5-11.0)
[2021-08-30 03:16] LABS: ALANINE AMINOTRANSFERASE 18 U/L (12-78); ALBUMIN 1.7 G/DL (3.4-5.0); ALBUMIN/GLOBULIN RATIO 0.5 (1.1-1.5); ALKALINE PHOSPHATASE 135 IU/L (46-116); ANION GAP 11 (8-16); ASPARTATE AMINO TRANSFERASE 13 U/L (10-37); BILIRUBIN,TOTAL 0.5 MG/DL (0.1-1.0); BLOOD UREA NITROGEN 73 MG/DL (7-18); BUN/CREATININE RATIO 33.8 (6.6-38.0); CALCIUM 8.5 MG/DL (8.5-10.1); CHLORIDE 99 MMOL/L (99-107); CREATININE 2.16 MG/DL (0.40-0.90); GLUCOSE 219 MG/DL (70-104); MAGNESIUM 1.9 MG/DL (1.5-2.4); PHOSPHORUS 2.9 MG/DL (2.3-4.5); SODIUM 140 MMOL/L (135-145); TOTAL CARBON DIOXIDE 29.8 MMOL/L (24-32); TOTAL PROTEIN 5.3 G/DL (6.4-8.2); VANCOMYCIN,RANDOM 20.9 UG/ML; eGFR 22 ML/MIN
[2021-08-30 03:32] LABS: POTASSIUM 2.8 MMOL/L (3.5-5.1)
--- NOTE | 2021-08-30 03:50 | NUR ---
Dr. Winston notified of H & H 6.5/18.7, new order received to transfuse 1 unit of PRBC's. Addendum: 08/30/21 at 0605 by Nasrin Arthur RN, RN Nurses note for 0350 08/30/21 written on wrong pt.
[2021-08-30] MEDS: potassium Cl 20mEq/100mL bag 100 ML IV PRN ×3 (03:58→06:33)
[2021-08-30 04:46] LABS: ANISOCYTOSIS 2+; PLATELET ESTIMATE INCREASED; TOTAL CELLS COUNTED 100
[2021-08-30 04:47] LABS: POLYCHROMASIA FEW
[2021-08-30] MEDS: K and/or MAG REPLACEMENT MC SCH (08:00)
[2021-08-30] MEDS: mineral oil/petrolatum ophthal oint EACHEYE SCH ×3 (08:00→20:00)
[2021-08-30] MEDS: metoclopramide 5 mg/ml inj IV SCH ×3 (08:00→17:09)
[2021-08-30] MEDS: potassium Cl 20 mEq SR tablet NG SCH (08:45)
[2021-08-30] MEDS: allopurinol 100mg tablet NG SCH (08:45)
[2021-08-30] MEDS: amiodarone 200mg tablet PO SCH ×2 (08:45→20:00)
[2021-08-30] MEDS: lansoprazole 15mg solutab NG SCH (08:45)
[2021-08-30] MEDS: heparin, porcine 5000 units/ml vial SQ SCH ×2 (08:46→20:39)
[2021-08-30] MEDS: NYSTATIN CREAM - 30GM TUBE TP SCH ×2 (08:46→20:50)
[2021-08-30] MEDS: docusate sodium 100mg/10ml UD cup NG SCH ×2 (11:28→20:38)
[2021-08-30] MEDS: lactobacillus rhamnosus 10,000 MMU CELLS/CAPSULE NG SCH ×2 (11:30→20:38)
[2021-08-30 11:51] LABS: POTASSIUM 3.8 MMOL/L (3.5-5.1)
[2021-08-30] MEDS: insulin glargine (Lantus) pen - multi-dose SQ SCH (20:49)
[2021-08-31] VITALS (25 sets, daily range): BP systolic 104–152; BP diastolic 35–59
[2021-08-31] MEDS: mineral oil/petrolatum ophthal oint EACHEYE SCH ×4 (02:00→20:54)
[2021-08-31 02:59] LABS: BASOPHILS % (AUTO) 0.4 % (0-1); EOSINOPHILS # (AUTO) 0.2 X10'3 (0-0.9); EOSINOPHILS % (AUTO) 1.8 % (0-6); HEMATOCRIT 24.9 % (35.0-45.0); HEMOGLOBIN 8.1 g/dl (12.0-16.0); LYMPHOCYTES % (AUTO) 10.1 % (21-51); MEAN CORPUSCULAR HEMOGLOBIN 26.9 PG (27.0-31.0); MEAN CORPUSCULAR HGB CONC 32.5 g/dL (33.0-36.5); MEAN CORPUSCULAR VOLUME 82.7 FL (78-98); MEAN PLATELET VOLUME 7.5 FL (7.4-10.4); MONOCYTES % (AUTO) 9.8 % (2-12); NEUTROPHILS % (AUTO) 77.9 % (42-75); PLATELET COUNT 536 X10'3 (140-440); RED BLOOD COUNT 3.01 X10'6 (4.20-5.60); RED CELL DISTRIBUTION WIDTH 18.9 % (11.5-14.5); WHITE BLOOD COUNT 10.3 X10'3 (4.5-11.0)
[2021-08-31] MEDS: VANCOMYCIN LEVEL IV SCH (03:00)
[2021-08-31] MEDS: insulin regular, human U-100 3ml vial - multi-dose SQ SCH ×3 (03:06→20:52)
[2021-08-31 03:17] LABS: ALANINE AMINOTRANSFERASE 15 U/L (12-78); ALBUMIN 1.6 G/DL (3.4-5.0); ALBUMIN/GLOBULIN RATIO 0.4 (1.1-1.5); ALKALINE PHOSPHATASE 114 IU/L (46-116); ANION GAP 8 (8-16); ASPARTATE AMINO TRANSFERASE 11 U/L (10-37); BILIRUBIN,TOTAL 0.4 MG/DL (0.1-1.0); BLOOD UREA NITROGEN 71 MG/DL (7-18); BUN/CREATININE RATIO 34.5 (6.6-38.0); CALCIUM 8.6 MG/DL (8.5-10.1); CHLORIDE 100 MMOL/L (99-107); CREATININE 2.06 MG/DL (0.40-0.90); GLUCOSE 180 MG/DL (70-104); POTASSIUM 3.1 MMOL/L (3.5-5.1); SODIUM 137 MMOL/L (135-145); TOTAL CARBON DIOXIDE 29.5 MMOL/L (24-32); TOTAL PROTEIN 5.2 G/DL (6.4-8.2); VANCOMYCIN,RANDOM 19.2 UG/ML; eGFR 23 ML/MIN
[2021-08-31] MEDS: ipratropium/albuterol 3ml nebule NEB SCH ×6 (03:17→23:36)
[2021-08-31 04:11] LABS: PLATELET ESTIMATE INCREASED; TOTAL CELLS COUNTED 100
[2021-08-31 04:12] LABS: ANISOCYTOSIS 2+; LARGE PLATELETS FEW; POLYCHROMASIA FEW
[2021-08-31 04:48] LABS: ABG BASE EXCESS 6.3 mmol/L (-2.0-2.0); ABG OXYGEN SATURATION 95.3 % (94-97); ABG PCO2 (T) 34.4 mmHg (32.0-45.0); ABG PO2 (T) 77.3 mmHg (75.0-100.0); ALLEN'S TEST Yes; FCOHb 0.3 % (0.0-3.9); FMetHb 0.3 % (0.0-1.5); FO2Hb 94.7 % (94-97); PEEP 6 cm H2O; TOTAL HEMOGLOBIN 10.3 G/dl (12.0-16.0)
[2021-08-31] MEDS: potassium Cl 20mEq/100mL bag 100 ML IV PRN ×2 (07:41→08:46)
[2021-08-31] MEDS: K and/or MAG REPLACEMENT MC SCH ×2 (08:00→20:00)
[2021-08-31 08:03] LABS: MAGNESIUM 2.1 MG/DL (1.5-2.4)
[2021-08-31] MEDS: docusate sodium 100mg/10ml UD cup NG SCH ×2 (08:55→20:54)
[2021-08-31] MEDS: potassium Cl 20 mEq SR tablet NG SCH (08:56)
[2021-08-31] MEDS: allopurinol 100mg tablet NG SCH (08:56)
[2021-08-31] MEDS: lactobacillus rhamnosus 10,000 MMU CELLS/CAPSULE NG SCH ×2 (08:57→20:54)
[2021-08-31] MEDS: heparin, porcine 5000 units/ml vial SQ SCH ×2 (08:57→20:55)
[2021-08-31] MEDS: amiodarone 200mg tablet PO SCH ×2 (08:57→20:54)
[2021-08-31] MEDS: metoclopramide 5 mg/ml inj IV SCH ×3 (08:57→17:04)
[2021-08-31] MEDS: NYSTATIN CREAM - 30GM TUBE TP SCH ×2 (09:00→20:55)
[2021-08-31] MEDS: lansoprazole 15mg solutab NG SCH (09:01)
[2021-08-31] MEDS: midazolam 100mg in NS 100ml 100 ML IV PRN (13:13)
[2021-08-31] MEDS: FENTANYL-0.9 % NACL/PF 100 ML IV PRN (13:14)
[2021-08-31] MEDS: magnesium 2GM in 50ml NS 50 ML IV PRN (13:40)
[2021-08-31] MEDS: furosemide inj 1,000 MG in normal saline 250ml IV soln 150 ML IV SCH (19:00)
[2021-08-31] MEDS: insulin glargine (Lantus) pen - multi-dose SQ SCH (20:53)
[2021-09-01] VITALS (25 sets, daily range): BP systolic 95–148; BP diastolic 40–67
[2021-09-01] MEDS: metoclopramide 5 mg/ml inj IV SCH ×3 (00:41→17:13)
[2021-09-01] MEDS: furosemide inj 1,000 MG in normal saline 250ml IV soln 150 ML IV SCH (00:57)
[2021-09-01] MEDS: mineral oil/petrolatum ophthal oint EACHEYE SCH ×4 (02:00→20:41)
[2021-09-01] MEDS: insulin regular, human U-100 3ml vial - multi-dose SQ SCH ×4 (02:54→21:10)
[2021-09-01] MEDS: VANCOMYCIN LEVEL IV SCH (03:00)
[2021-09-01 03:03] LABS: BASOPHILS # (AUTO) 0.1 X10'3 (0-0.2); BASOPHILS % (AUTO) 0.5 % (0-1); EOSINOPHILS # (AUTO) 0.3 X10'3 (0-0.9); EOSINOPHILS % (AUTO) 2.3 % (0-6); HEMATOCRIT 24.8 % (35.0-45.0); LYMPHOCYTES % (AUTO) 9.1 % (21-51); MEAN CORPUSCULAR HEMOGLOBIN 26.9 PG (27.0-31.0); MEAN CORPUSCULAR HGB CONC 32.4 g/dL (33.0-36.5); MEAN CORPUSCULAR VOLUME 83.2 FL (78-98); MEAN PLATELET VOLUME 7.3 FL (7.4-10.4); MONOCYTES # (AUTO) 1.1 X10'3 (0-0.9); MONOCYTES % (AUTO) 9.7 % (2-12); NEUTROPHILS # (AUTO) 8.6 X10'3 (1.8-7.7); NEUTROPHILS % (AUTO) 78.4 % (42-75); PLATELET COUNT 520 X10'3 (140-440); RED BLOOD COUNT 2.98 X10'6 (4.20-5.60); RED CELL DISTRIBUTION WIDTH 18.7 % (11.5-14.5)
[2021-09-01 03:20] LABS: ALANINE AMINOTRANSFERASE 11 U/L (12-78); ALBUMIN 1.6 G/DL (3.4-5.0); ALBUMIN/GLOBULIN RATIO 0.4 (1.1-1.5); ALKALINE PHOSPHATASE 110 IU/L (46-116); ANION GAP 6 (8-16); ASPARTATE AMINO TRANSFERASE 10 U/L (10-37); BILIRUBIN,TOTAL 0.4 MG/DL (0.1-1.0); BLOOD UREA NITROGEN 75 MG/DL (7-18); BUN/CREATININE RATIO 40.8 (6.6-38.0); CALCIUM 8.5 MG/DL (8.5-10.1); CHLORIDE 100 MMOL/L (99-107); CREATININE 1.84 MG/DL (0.40-0.90); GLUCOSE 183 MG/DL (70-104); POTASSIUM 3.3 MMOL/L (3.5-5.1); PREALBUMIN 14.5 MG/DL (19-36); SODIUM 137 MMOL/L (135-145); TOTAL CARBON DIOXIDE 30.8 MMOL/L (24-32); TOTAL PROTEIN 5.4 G/DL (6.4-8.2); VANCOMYCIN,RANDOM 14.3 UG/ML; eGFR 27 ML/MIN
[2021-09-01] MEDS: ipratropium/albuterol 3ml nebule NEB SCH ×6 (03:29→22:46)
[2021-09-01 03:49] LABS: ABG HCO3 33.2 mmol/L (22.0-26.0); ABG OXYGEN SATURATION 88.7 % (94-97); ABG PCO2 (T) 44.6 mmHg (32.0-45.0); ABG PO2 (T) 57.2 mmHg (75.0-100.0); ALLEN'S TEST Modified; FCOHb 0.2 % (0.0-3.9); FMetHb 0.2 % (0.0-1.5); FO2Hb 88.3 % (94-97); PATIENT TEMPERATURE 37.2; PEEP 6 cm H2O; RESPIRATORY RATE 16 b/min; TOTAL HEMOGLOBIN 8.8 G/dl (12.0-16.0)
--- NOTE | 2021-09-01 06:30 | NUR ---
Patient in room CICU 2016. I have received report from and had the opportunity to ask questions and assume patient care.
[2021-09-01] MEDS: lansoprazole 15mg solutab NG SCH (07:30)
[2021-09-01] MEDS: K and/or MAG REPLACEMENT MC SCH ×2 (08:00→20:00)
[2021-09-01] MEDS: docusate sodium 100mg/10ml UD cup NG SCH ×2 (08:00→20:42)
--- NOTE | 2021-09-01 08:00 | NUR ---
pt sedated, opens eyes spont to care, nothing to commands. rt lasix labs started. k replacement given. update to md. sats 92% on 65%
[2021-09-01] MEDS ORDERED: vancomycin/NS 1 GM ADD-VANTAGE 250 ML IV ONE (08:40)
[2021-09-01 09:28] LABS: ALBUMIN 1.6 G/DL (3.4-5.0); ANION GAP 7 (8-16); BLOOD UREA NITROGEN 74 MG/DL (7-18); BUN/CREATININE RATIO 41.6 (6.6-38.0); CALCIUM 8.6 MG/DL (8.5-10.1); CHLORIDE 100 MMOL/L (99-107); CREATININE 1.78 MG/DL (0.40-0.90); GLUCOSE 139 MG/DL (70-104); MAGNESIUM 2.5 MG/DL (1.5-2.4); PHOSPHORUS 3.8 MG/DL (2.3-4.5); POTASSIUM 3.5 MMOL/L (3.5-5.1); SODIUM 137 MMOL/L (135-145); TOTAL CARBON DIOXIDE 30.4 MMOL/L (24-32); eGFR 28 ML/MIN
[2021-09-01] MEDS: potassium Cl 20mEq/100mL bag 100 ML IV PRN ×2 (10:20→11:01)
[2021-09-01] MEDS: potassium Cl 20 mEq SR tablet NG SCH (10:21)
[2021-09-01] MEDS: allopurinol 100mg tablet NG SCH (10:29)
[2021-09-01] MEDS: lactobacillus rhamnosus 10,000 MMU CELLS/CAPSULE NG SCH ×2 (10:30→20:42)
[2021-09-01] MEDS: heparin, porcine 5000 units/ml vial SQ SCH ×2 (10:30→20:42)
[2021-09-01] MEDS: amiodarone 200mg tablet PO SCH (10:30)
[2021-09-01] MEDS: NYSTATIN CREAM - 30GM TUBE TP SCH ×2 (11:01→20:43)
[2021-09-01] MEDS: methylPREDNISolone sod succ 125mg/2ml vial IV SCH ×2 (11:22→17:13)
--- NOTE | 2021-09-01 11:26 | NUR ---
Reassessment: Pt remains intubated and tolerating TF at goal rate with GRV WNL. 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 Pt already receiving increased protein with TF at goal rate d/t intubation. LBM 08/31, receiving routine bowel care. No changes to nutrition recommendations at this time. Will continue to follow. Recommendations: 1. Continuous TF via NGT using Vital AF with 70 mL/r goal to provide 1680 mL total volume/day, 2016 kcal, 126 g protein, and 1362 mL water 2. Additional 150 mL water flush Q4H; monitor serum Na 3. PALB q Sunday/ 4. Daily scaled weights 5. Routine bowel care; routine prokinetic agent per MD 6. Advance to heart healthy diet as medically indicated following extubation; monitor BG levels and need for CHO controlled diet, A1c 7.6% 7. Continue with NGTF following extubation until pt able tolerate at least 65% PO intake of meals given suboptimal PO intake prior to intubation Addendum: 09/01/21 at [address] Amended: Links added.
--- NOTE | 2021-09-01 13:00 | NUR ---
hr to 140's afib, sbp stable- md aware
[2021-09-01 15:12] LABS: ALBUMIN 1.9 G/DL (3.4-5.0); BLOOD UREA NITROGEN 71 MG/DL (7-18); BUN/CREATININE RATIO 37.8 (6.6-38.0); CALCIUM 8.9 MG/DL (8.5-10.1); CREATININE 1.88 MG/DL (0.40-0.90); GLUCOSE 172 MG/DL (70-104); MAGNESIUM 2.5 MG/DL (1.5-2.4); PHOSPHORUS 4.2 MG/DL (2.3-4.5); POTASSIUM 4.5 MMOL/L (3.5-5.1); SODIUM 140 MMOL/L (135-145); TOTAL CARBON DIOXIDE 29.5 MMOL/L (24-32); eGFR 26 ML/MIN
[2021-09-01 15:18] LABS: ANION GAP 8 (8-16); CHLORIDE 103 MMOL/L (99-107)
[2021-09-01] MEDS ORDERED: amiodarone 150mg/dext, iso-os 100 ML IV ONE (17:00)
--- NOTE | 2021-09-01 17:00 | NUR ---
hr remains 118 to 140- cordarone ordered and started. hr down now
[2021-09-01] MEDS: amiodarone/D5 360MG/200ML BAG 200 ML IV SCH (17:19)
[2021-09-01] MEDS: midazolam 100mg in NS 100ml 100 ML IV PRN (18:37)
[2021-09-01] MEDS: insulin glargine (Lantus) pen - multi-dose SQ SCH (21:09)
[2021-09-01 21:13] LABS: ALBUMIN 1.7 G/DL (3.4-5.0); ANION GAP 12 (8-16); BLOOD UREA NITROGEN 78 MG/DL (7-18); BUN/CREATININE RATIO 38.4 (6.6-38.0); CALCIUM 8.5 MG/DL (8.5-10.1); CHLORIDE 100 MMOL/L (99-107); CREATININE 2.03 MG/DL (0.40-0.90); GLUCOSE 278 MG/DL (70-104); MAGNESIUM 2.6 MG/DL (1.5-2.4); POTASSIUM 4.3 MMOL/L (3.5-5.1); SODIUM 141 MMOL/L (135-145); TOTAL CARBON DIOXIDE 29.1 MMOL/L (24-32); eGFR 24 ML/MIN
[2021-09-02] VITALS (24 sets, daily range): BP systolic 124–170; BP diastolic 44–72
[2021-09-02] MEDS: amiodarone/D5 360MG/200ML BAG 200 ML IV SCH ×2 (00:49→05:08)
[2021-09-02] MEDS: metoclopramide 5 mg/ml inj IV SCH ×3 (00:49→16:24)
[2021-09-02] MEDS: methylPREDNISolone sod succ 125mg/2ml vial IV SCH ×3 (00:49→16:25)
[2021-09-02] MEDS: mineral oil/petrolatum ophthal oint EACHEYE SCH ×4 (02:22→20:00)
[2021-09-02] MEDS: VANCOMYCIN LEVEL IV SCH (02:22)
[2021-09-02] MEDS: FENTANYL-0.9 % NACL/PF 100 ML IV PRN (02:30)
[2021-09-02] MEDS: insulin regular, human U-100 3ml vial - multi-dose SQ SCH ×3 (02:48→21:19)
[2021-09-02 03:07] LABS: ABG BASE EXCESS 5.9 mmol/L (-2.0-2.0); ABG HCO3 28.4 mmol/L (22.0-26.0); ABG PCO2 (T) 35.2 mmHg (32.0-45.0); ABG PO2 (T) 66.5 mmHg (75.0-100.0); ALLEN'S TEST POSITIVE; FCOHb 0.1 % (0.0-3.9); FMetHb 0.2 % (0.0-1.5); FO2Hb 91.7 % (94-97); PATIENT TEMPERATURE 37.7; PEEP 6 cm H2O; TOTAL HEMOGLOBIN 12.3 G/dl (12.0-16.0)
[2021-09-02] MEDS: ipratropium/albuterol 3ml nebule NEB SCH ×6 (03:11→23:12)
[2021-09-02 03:45] LABS: BASOPHILS % (AUTO) 0.2 % (0-1); EOSINOPHILS % (AUTO) 0 % (0-6); HEMATOCRIT 25.9 % (35.0-45.0); HEMOGLOBIN 8.5 g/dl (12.0-16.0); LYMPHOCYTES # (AUTO) 0.7 X10'3 (1.1-4.8); LYMPHOCYTES % (AUTO) 6.3 % (21-51); MEAN CORPUSCULAR HEMOGLOBIN 27.2 PG (27.0-31.0); MEAN CORPUSCULAR HGB CONC 32.8 g/dL (33.0-36.5); MEAN PLATELET VOLUME 7.4 FL (7.4-10.4); MONOCYTES # (AUTO) 0.1 X10'3 (0-0.9); MONOCYTES % (AUTO) 1.3 % (2-12); NEUTROPHILS # (AUTO) 9.7 X10'3 (1.8-7.7); NEUTROPHILS % (AUTO) 92.2 % (42-75); PLATELET COUNT 553 X10'3 (140-440); RED BLOOD COUNT 3.12 X10'6 (4.20-5.60); RED CELL DISTRIBUTION WIDTH 18.9 % (11.5-14.5); WHITE BLOOD COUNT 10.6 X10'3 (4.5-11.0)
[2021-09-02 03:58] LABS: ALANINE AMINOTRANSFERASE 12 U/L (12-78); ALBUMIN 1.7 G/DL (3.4-5.0); ALBUMIN/GLOBULIN RATIO 0.4 (1.1-1.5); ALKALINE PHOSPHATASE 129 IU/L (46-116); ANION GAP 11 (8-16); ASPARTATE AMINO TRANSFERASE 17 U/L (10-37); BILIRUBIN,TOTAL 0.4 MG/DL (0.1-1.0); BLOOD UREA NITROGEN 81 MG/DL (7-18); BUN/CREATININE RATIO 40.1 (6.6-38.0); CALCIUM 8.4 MG/DL (8.5-10.1); CHLORIDE 99 MMOL/L (99-107); CREATININE 2.02 MG/DL (0.40-0.90); GLUCOSE 331 MG/DL (70-104); MAGNESIUM 2.7 MG/DL (1.5-2.4); PHOSPHORUS 3.9 MG/DL (2.3-4.5); POTASSIUM 3.6 MMOL/L (3.5-5.1); SODIUM 140 MMOL/L (135-145); TOTAL PROTEIN 5.9 G/DL (6.4-8.2); VANCOMYCIN,RANDOM 23.7 UG/ML; eGFR 24 ML/MIN
[2021-09-02 04:34] LABS: TOTAL CELLS COUNTED 100
[2021-09-02 04:35] LABS: ANISOCYTOSIS 2+; PLATELET ESTIMATE INCREASED; POLYCHROMASIA FEW
[2021-09-02] MEDS: K and/or MAG REPLACEMENT MC SCH (08:00)
[2021-09-02] MEDS: NYSTATIN CREAM - 30GM TUBE TP SCH ×2 (08:00→20:00)
[2021-09-02] MEDS: allopurinol 100mg tablet NG SCH (08:00)
[2021-09-02] MEDS: lactobacillus rhamnosus 10,000 MMU CELLS/CAPSULE NG SCH ×2 (08:00→20:00)
[2021-09-02] MEDS: potassium Cl 20 mEq SR tablet NG SCH (09:22)
[2021-09-02] MEDS: docusate sodium 100mg/10ml UD cup NG SCH ×2 (09:22→20:00)
[2021-09-02] MEDS: lansoprazole 15mg solutab NG SCH (09:22)
[2021-09-02] MEDS: heparin, porcine 5000 units/ml vial SQ SCH ×2 (09:23→20:00)
[2021-09-02] MEDS: acetaminophen 325mg tablet PO PRN ×2 (13:37→21:59)
[2021-09-02 19:50] LABS: ALBUMIN 1.9 G/DL (3.4-5.0); ANION GAP 11 (8-16); BLOOD UREA NITROGEN 92 MG/DL (7-18); BUN/CREATININE RATIO 45.1 (6.6-38.0); CALCIUM 8.4 MG/DL (8.5-10.1); CHLORIDE 99 MMOL/L (99-107); CREATININE 2.04 MG/DL (0.40-0.90); GLUCOSE 365 MG/DL (70-104); MAGNESIUM 2.6 MG/DL (1.5-2.4); PHOSPHORUS 3.9 MG/DL (2.3-4.5); POTASSIUM 3.4 MMOL/L (3.5-5.1); SODIUM 141 MMOL/L (135-145); TOTAL CARBON DIOXIDE 31.4 MMOL/L (24-32); eGFR 24 ML/MIN
[2021-09-02] MEDS ORDERED: insulin glargine (Lantus) pen - multi-dose SQ SCH (21:00)
[2021-09-03] VITALS (24 sets, daily range): BP systolic 113–160; BP diastolic 52–81
[2021-09-03] MEDS: metoclopramide 5 mg/ml inj IV SCH ×3 (00:36→16:06)
[2021-09-03] MEDS: methylPREDNISolone sod succ 125mg/2ml vial IV SCH ×3 (00:36→16:06)
[2021-09-03] MEDS: amiodarone/D5 360MG/200ML BAG 200 ML IV SCH ×3 (00:38→11:21)
[2021-09-03] MEDS: mineral oil/petrolatum ophthal oint EACHEYE SCH ×4 (02:27→20:36)
[2021-09-03] MEDS: insulin regular, human U-100 3ml vial - multi-dose SQ SCH ×4 (02:32→20:31)
[2021-09-03 02:56] LABS: EOSINOPHILS % (AUTO) 0 % (0-6); HEMOGLOBIN 8.9 g/dl (12.0-16.0); LYMPHOCYTES # (AUTO) 0.5 X10'3 (1.1-4.8); MONOCYTES # (AUTO) 0.5 X10'3 (0-0.9); NEUTROPHILS % (AUTO) 90.2 % (42-75)
[2021-09-03 02:58] LABS: BASOPHILS % (AUTO) 0.4 % (0-1); HEMATOCRIT 27.1 % (35.0-45.0); LYMPHOCYTES % (AUTO) 4.9 % (21-51); MEAN CORPUSCULAR HEMOGLOBIN 27.3 PG (27.0-31.0); MEAN CORPUSCULAR HGB CONC 32.7 g/dL (33.0-36.5); MEAN CORPUSCULAR VOLUME 83.6 FL (78-98); MEAN PLATELET VOLUME 7.5 FL (7.4-10.4); MONOCYTES % (AUTO) 4.5 % (2-12); NEUTROPHILS # (AUTO) 9.9 X10'3 (1.8-7.7); PLATELET COUNT 586 X10'3 (140-440); RED BLOOD COUNT 3.24 X10'6 (4.20-5.60); RED CELL DISTRIBUTION WIDTH 19.4 % (11.5-14.5)
[2021-09-03 03:12] LABS: ALANINE AMINOTRANSFERASE 28 U/L (12-78); ALBUMIN 1.9 G/DL (3.4-5.0); ALBUMIN/GLOBULIN RATIO 0.5 (1.1-1.5); ALKALINE PHOSPHATASE 118 IU/L (46-116); ANION GAP 11 (8-16); ASPARTATE AMINO TRANSFERASE 16 U/L (10-37); BILIRUBIN,TOTAL 0.3 MG/DL (0.1-1.0); BLOOD UREA NITROGEN 91 MG/DL (7-18); BUN/CREATININE RATIO 44.6 (6.6-38.0); CALCIUM 8.3 MG/DL (8.5-10.1); CHLORIDE 99 MMOL/L (99-107); CREATININE 2.04 MG/DL (0.40-0.90); GLUCOSE 411 MG/DL (70-104); MAGNESIUM 2.6 MG/DL (1.5-2.4); PHOSPHORUS 3.8 MG/DL (2.3-4.5); POTASSIUM 3.1 MMOL/L (3.5-5.1); SODIUM 141 MMOL/L (135-145); TOTAL CARBON DIOXIDE 31.2 MMOL/L (24-32); eGFR 24 ML/MIN
[2021-09-03 03:30] LABS: ABG BASE EXCESS 6.8 mmol/L (-2.0-2.0); ABG HCO3 30.1 mmol/L (22.0-26.0); ABG OXYGEN SATURATION 90.4 % (94-97); ABG PCO2 (T) 39.2 mmHg (32.0-45.0); ABG PO2 (T) 64.6 mmHg (75.0-100.0); ALLEN'S TEST POSITIVE; FCOHb 0.3 % (0.0-3.9); FMetHb 0.2 % (0.0-1.5); FO2Hb 89.9 % (94-97); PATIENT TEMPERATURE 38.1; PEEP 5 cm H2O; TOTAL HEMOGLOBIN 9.9 G/dl (12.0-16.0)
[2021-09-03 03:59] LABS: ANISOCYTOSIS 2+; BURR CELLS FEW; PLATELET ESTIMATE INCREASED; POLYCHROMASIA FEW; TEAR DROP CELLS FEW; TOTAL CELLS COUNTED 100
[2021-09-03] MEDS: potassium Cl 20mEq/100mL bag 100 ML IV PRN ×3 (05:14→11:37)
[2021-09-03] MEDS: K and/or MAG REPLACEMENT MC SCH ×2 (06:40→08:00)
[2021-09-03] MEDS: ipratropium/albuterol 3ml nebule NEB SCH ×5 (07:06→23:14)
[2021-09-03] MEDS: lactobacillus rhamnosus 10,000 MMU CELLS/CAPSULE NG SCH ×2 (07:50→20:35)
[2021-09-03] MEDS: docusate sodium 100mg/10ml UD cup NG SCH ×2 (07:50→20:00)
[2021-09-03] MEDS: heparin, porcine 5000 units/ml vial SQ SCH ×2 (07:51→20:34)
[2021-09-03] MEDS: lansoprazole 15mg solutab NG SCH (07:51)
[2021-09-03] MEDS: allopurinol 100mg tablet NG SCH (07:51)
[2021-09-03] MEDS: NYSTATIN CREAM - 30GM TUBE TP SCH ×2 (07:52→20:36)
[2021-09-03] MEDS: potassium Cl 20 mEq SR tablet NG SCH (07:52)
[2021-09-03 10:02] LABS: ANION GAP 13 (8-16); BLOOD UREA NITROGEN 94 MG/DL (7-18); CALCIUM 8.5 MG/DL (8.5-10.1); CHLORIDE 100 MMOL/L (99-107); GLUCOSE 335 MG/DL (70-104); MAGNESIUM 2.5 MG/DL (1.5-2.4); PHOSPHORUS 3.2 MG/DL (2.3-4.5); POTASSIUM 3.3 MMOL/L (3.5-5.1); SODIUM 142 MMOL/L (135-145); TOTAL CARBON DIOXIDE 29.1 MMOL/L (24-32); eGFR 24 ML/MIN
[2021-09-03] MEDS: furosemide inj 1,000 MG in normal saline 250ml IV soln 150 ML IV SCH (10:39)
--- NOTE | 2021-09-03 11:00 | NUR ---
Potassium redraw 3.3 40meq given will redraw at 1700.
--- NOTE | 2021-09-03 16:40 | NUR ---
patient a little restless nodding head , called by name, patient attempted to open eyes nodding head to simple yes and no questions. reoriented to location date and time.
[2021-09-03] MEDS: insulin glargine (Lantus) pen - multi-dose SQ SCH (20:33)
[2021-09-03] MEDS: acetaminophen 325mg tablet PO PRN (20:35)
[2021-09-04] VITALS (24 sets, daily range): BP systolic 123–154; BP diastolic 51–81
[2021-09-04] MEDS: metoclopramide 5 mg/ml inj IV SCH ×4 (00:24→23:12)
[2021-09-04] MEDS: methylPREDNISolone sod succ 125mg/2ml vial IV SCH ×4 (00:24→23:09)
[2021-09-04] MEDS: amiodarone/D5 360MG/200ML BAG 200 ML IV SCH ×7 (00:25→23:07)
[2021-09-04] MEDS: insulin regular, human U-100 3ml vial - multi-dose SQ SCH ×3 (02:39→19:38)
[2021-09-04 03:47] LABS: BASOPHILS % (AUTO) 0.1 % (0-1); EOSINOPHILS % (AUTO) 0 % (0-6); HEMATOCRIT 24.1 % (35.0-45.0); HEMOGLOBIN 8.1 g/dl (12.0-16.0); LYMPHOCYTES # (AUTO) 0.6 X10'3 (1.1-4.8); LYMPHOCYTES % (AUTO) 7.4 % (21-51); MEAN CORPUSCULAR HEMOGLOBIN 28.1 PG (27.0-31.0); MEAN CORPUSCULAR HGB CONC 33.6 g/dL (33.0-36.5); MEAN CORPUSCULAR VOLUME 83.7 FL (78-98); MEAN PLATELET VOLUME 7.6 FL (7.4-10.4); MONOCYTES # (AUTO) 0.5 X10'3 (0-0.9); MONOCYTES % (AUTO) 5.4 % (2-12); NEUTROPHILS # (AUTO) 7.6 X10'3 (1.8-7.7); NEUTROPHILS % (AUTO) 87.1 % (42-75); PLATELET COUNT 510 X10'3 (140-440); RED BLOOD COUNT 2.88 X10'6 (4.20-5.60); RED CELL DISTRIBUTION WIDTH 19.4 % (11.5-14.5); WHITE BLOOD COUNT 8.7 X10'3 (4.5-11.0)
[2021-09-04 04:06] LABS: ALANINE AMINOTRANSFERASE 22 U/L (12-78); ALBUMIN/GLOBULIN RATIO 0.5 (1.1-1.5); ALKALINE PHOSPHATASE 110 IU/L (46-116); ANION GAP 12 (8-16); ASPARTATE AMINO TRANSFERASE 16 U/L (10-37); BILIRUBIN,TOTAL 0.3 MG/DL (0.1-1.0); BLOOD UREA NITROGEN 97 MG/DL (7-18); BUN/CREATININE RATIO 48.7 (6.6-38.0); CALCIUM 8.2 MG/DL (8.5-10.1); CHLORIDE 101 MMOL/L (99-107); CREATININE 1.99 MG/DL (0.40-0.90); GLUCOSE 276 MG/DL (70-104); MAGNESIUM 2.6 MG/DL (1.5-2.4); PHOSPHORUS 3.4 MG/DL (2.3-4.5); POTASSIUM 3.5 MMOL/L (3.5-5.1); SODIUM 143 MMOL/L (135-145); TOTAL CARBON DIOXIDE 30.2 MMOL/L (24-32); TOTAL PROTEIN 5.7 G/DL (6.4-8.2); eGFR 24 ML/MIN
[2021-09-04] MEDS: ipratropium/albuterol 3ml nebule NEB SCH ×6 (04:12→23:27)
[2021-09-04 04:20] LABS: ABG BASE EXCESS 6.3 mmol/L (-2.0-2.0); ABG HCO3 29.8 mmol/L (22.0-26.0); ABG OXYGEN SATURATION 94.6 % (94-97); ABG PCO2 (T) 38.7 mmHg (32.0-45.0); ABG PO2 (T) 74.6 mmHg (75.0-100.0); ALLEN'S TEST POSITIVE; FCOHb 0.3 % (0.0-3.9); FMetHb 0.2 % (0.0-1.5); FO2Hb 94.1 % (94-97); PEEP 5 cm H2O; RESPIRATORY RATE 10 b/min; TOTAL HEMOGLOBIN 9.3 G/dl (12.0-16.0)
[2021-09-04 05:12] LABS: ANISOCYTOSIS 2+; PLATELET ESTIMATE INCREASED; POLYCHROMASIA 1+; TEAR DROP CELLS FEW
[2021-09-04] MEDS: lansoprazole 15mg solutab NG SCH (07:30)
[2021-09-04] MEDS: docusate sodium 100mg/10ml UD cup NG SCH ×2 (08:00→20:00)
[2021-09-04] MEDS: K and/or MAG REPLACEMENT MC SCH ×3 (08:00→19:21)
[2021-09-04] MEDS: mineral oil/petrolatum ophthal oint EACHEYE SCH ×3 (08:00→19:20)
[2021-09-04] MEDS: heparin, porcine 5000 units/ml vial SQ SCH ×2 (08:45→19:20)
[2021-09-04] MEDS: potassium Cl 20 mEq SR tablet NG SCH (08:46)
[2021-09-04] MEDS: lactobacillus rhamnosus 10,000 MMU CELLS/CAPSULE NG SCH ×2 (08:46→19:20)
[2021-09-04] MEDS: allopurinol 100mg tablet NG SCH (08:47)
[2021-09-04] MEDS: NYSTATIN CREAM - 30GM TUBE TP SCH ×2 (08:47→19:21)
[2021-09-04 15:32] LABS: ALBUMIN 2.1 G/DL (3.4-5.0); ANION GAP 12 (8-16); BLOOD UREA NITROGEN 105 MG/DL (7-18); BUN/CREATININE RATIO 54.1 (6.6-38.0); CALCIUM 8.1 MG/DL (8.5-10.1); CHLORIDE 101 MMOL/L (99-107); CREATININE 1.94 MG/DL (0.40-0.90); GLUCOSE 344 MG/DL (70-104); MAGNESIUM 2.5 MG/DL (1.5-2.4); PHOSPHORUS 3.9 MG/DL (2.3-4.5); POTASSIUM 3.9 MMOL/L (3.5-5.1); SODIUM 143 MMOL/L (135-145); TOTAL CARBON DIOXIDE 29.9 MMOL/L (24-32); eGFR 25 ML/MIN
--- NOTE | 2021-09-04 18:20 | NUR ---
Patient in room CICU 2016. I have received report from Luzma ECHEVARRIA and had the opportunity to ask questions and assume patient care.
[2021-09-04] MEDS: furosemide inj 1,000 MG in normal saline 250ml IV soln 150 ML IV SCH (19:00)
[2021-09-04] MEDS: acetaminophen 325mg tablet PO PRN (19:20)
[2021-09-04] MEDS: insulin glargine (Lantus) pen - multi-dose SQ SCH (19:39)
[2021-09-04] MEDS: morphine 2 MG/ML inj. syringe IV PRN (23:32)
[2021-09-05] VITALS (24 sets, daily range): BP systolic 117–166; BP diastolic 54–99
[2021-09-05] MEDS ORDERED: dexmedetomidin/NS 400mcg/100ml 100 ML IV PRN (01:25)
[2021-09-05] MEDS ORDERED: dexmedetomidin/NS 400mcg/100ml 100 ML IV SCH (01:30)
[2021-09-05] MEDS: insulin regular, human U-100 3ml vial - multi-dose SQ SCH ×4 (02:01→21:25)
[2021-09-05 02:23] LABS: BASOPHILS % (AUTO) 0.2 % (0-1); EOSINOPHILS % (AUTO) 0 % (0-6); HEMATOCRIT 27.7 % (35.0-45.0); LYMPHOCYTES # (AUTO) 0.5 X10'3 (1.1-4.8); MEAN CORPUSCULAR HGB CONC 32.3 g/dL (33.0-36.5); MEAN CORPUSCULAR VOLUME 83.4 FL (78-98); MEAN PLATELET VOLUME 7.5 FL (7.4-10.4); MONOCYTES # (AUTO) 0.4 X10'3 (0-0.9); MONOCYTES % (AUTO) 3.6 % (2-12); NEUTROPHILS # (AUTO) 9.6 X10'3 (1.8-7.7); NEUTROPHILS % (AUTO) 91.2 % (42-75); PLATELET COUNT 568 X10'3 (140-440); RED BLOOD COUNT 3.32 X10'6 (4.20-5.60); RED CELL DISTRIBUTION WIDTH 19.4 % (11.5-14.5); WHITE BLOOD COUNT 10.5 X10'3 (4.5-11.0)
[2021-09-05] MEDS: mineral oil/petrolatum ophthal oint EACHEYE SCH ×4 (02:25→20:00)
[2021-09-05 02:48] LABS: ALANINE AMINOTRANSFERASE 34 U/L (12-78); ALBUMIN 2.2 G/DL (3.4-5.0); ALBUMIN/GLOBULIN RATIO 0.6 (1.1-1.5); ALKALINE PHOSPHATASE 127 IU/L (46-116); ANION GAP 12 (8-16); ASPARTATE AMINO TRANSFERASE 21 U/L (10-37); BILIRUBIN,TOTAL 0.3 MG/DL (0.1-1.0); BLOOD UREA NITROGEN 105 MG/DL (7-18); BUN/CREATININE RATIO 53.3 (6.6-38.0); CALCIUM 8.3 MG/DL (8.5-10.1); CHLORIDE 101 MMOL/L (99-107); CREATININE 1.97 MG/DL (0.40-0.90); GLUCOSE 301 MG/DL (70-104); MAGNESIUM 2.4 MG/DL (1.5-2.4); PHOSPHORUS 3.5 MG/DL (2.3-4.5); POTASSIUM 3.4 MMOL/L (3.5-5.1); PREALBUMIN 35.3 MG/DL (19-36); SODIUM 143 MMOL/L (135-145); TOTAL CARBON DIOXIDE 29.6 MMOL/L (24-32); TOTAL PROTEIN 5.9 G/DL (6.4-8.2); eGFR 25 ML/MIN
[2021-09-05 02:51] LABS: PLATELET ESTIMATE INCREASED
[2021-09-05 02:52] LABS: LARGE PLATELETS FEW
[2021-09-05 02:53] LABS: ANISOCYTOSIS 2+; POLYCHROMASIA FEW
[2021-09-05] MEDS: ipratropium/albuterol 3ml nebule NEB SCH ×6 (03:06→23:34)
[2021-09-05] MEDS: potassium Cl 20mEq/100mL bag 100 ML IV PRN ×2 (04:24→05:30)
[2021-09-05 04:34] LABS: ABG BASE EXCESS 3.5 mmol/L (-2.0-2.0); ABG HCO3 26.6 mmol/L (22.0-26.0); ABG OXYGEN SATURATION 93.4 % (94-97); ABG PCO2 (T) 33.9 mmHg (32.0-45.0); ABG PO2 (T) 67.4 mmHg (75.0-100.0); ALLEN'S TEST POSITIVE; FCOHb 0.3 % (0.0-3.9); FMetHb 0.2 % (0.0-1.5); FO2Hb 92.9 % (94-97); PATIENT TEMPERATURE 36.8; PEEP 5 cm H2O; RESPIRATORY RATE 10 b/min; TOTAL HEMOGLOBIN 9.4 G/dl (12.0-16.0)
[2021-09-05] MEDS: amiodarone/D5 360MG/200ML BAG 200 ML IV SCH ×4 (05:56→20:03)
--- NOTE | 2021-09-05 06:41 | NUR ---
Problems reprioritized. Patient report given, questions answered & plan of care reviewed with Owen EHCEVARRIA.
[2021-09-05] MEDS: docusate sodium 100mg/10ml UD cup NG SCH ×2 (08:04→20:00)
[2021-09-05] MEDS: heparin, porcine 5000 units/ml vial SQ SCH ×2 (08:04→20:01)
[2021-09-05] MEDS: metoclopramide 5 mg/ml inj IV SCH ×2 (08:04→16:27)
[2021-09-05] MEDS: lansoprazole 15mg solutab NG SCH (08:04)
[2021-09-05] MEDS: methylPREDNISolone sod succ 125mg/2ml vial IV SCH ×2 (08:04→16:27)
[2021-09-05] MEDS: lactobacillus rhamnosus 10,000 MMU CELLS/CAPSULE NG SCH ×2 (08:04→20:00)
[2021-09-05] MEDS: morphine 2 MG/ML inj. syringe IV PRN (08:04)
[2021-09-05] MEDS: NYSTATIN CREAM - 30GM TUBE TP SCH ×2 (08:05→20:01)
[2021-09-05] MEDS: potassium Cl 20 mEq SR tablet NG SCH (08:05)
[2021-09-05] MEDS: K and/or MAG REPLACEMENT MC SCH ×2 (08:06→18:18)
[2021-09-05] MEDS: allopurinol 100mg tablet NG SCH (08:31)
[2021-09-05 09:23] LABS: ALBUMIN 2.1 G/DL (3.4-5.0); ANION GAP 14 (8-16); BLOOD UREA NITROGEN 101 MG/DL (7-18); BUN/CREATININE RATIO 52.1 (6.6-38.0); CALCIUM 8.3 MG/DL (8.5-10.1); CHLORIDE 103 MMOL/L (99-107); CREATININE 1.94 MG/DL (0.40-0.90); GLUCOSE 260 MG/DL (70-104); MAGNESIUM 2.4 MG/DL (1.5-2.4); PHOSPHORUS 3.6 MG/DL (2.3-4.5); POTASSIUM 4.1 MMOL/L (3.5-5.1); SODIUM 144 MMOL/L (135-145); TOTAL CARBON DIOXIDE 27.5 MMOL/L (24-32); eGFR 25 ML/MIN
--- NOTE | 2021-09-05 11:50 | NUR ---
Reassessment: Pt remains intubated and tolerating TF at goal rate with GRV WNL. 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 Pt already receiving increased protein with TF at goal rate d/t intubation. LBM 09/04, receiving routine bowel care. May get extubated soon per MD. No changes to nutrition recommendations at this time. Will continue to follow. Recommendations: 1. Continuous TF via NGT using Vital AF with 70 mL/r goal to provide 1680 mL total volume/day, 2016 kcal, 126 g protein, and 1362 mL water 2. Additional 150 mL water flush Q4H; monitor serum Na 3. PALB q Sunday/ 4. Daily scaled weights 5. Routine bowel care; routine prokinetic agent per MD 6. Advance to heart healthy diet as medically indicated following extubation; monitor BG levels and need for CHO controlled diet, A1c 7.6% 7. Continue with NGTF following extubation until pt able tolerate at least 65% PO intake of meals given suboptimal PO intake prior to intubation Addendum: 09/05/21 at [address] Amended: Links added.
[2021-09-05] MEDS: albumin (Human) 5% 250ml 500 ML IV SCH ×2 (13:10→20:41)
[2021-09-05] MEDS: furosemide 40mg/4ml inj IV SCH ×2 (14:58→20:43)
[2021-09-05 17:33] LABS: ABG BASE EXCESS 3.2 mmol/L (-2.0-2.0); ABG HCO3 29.3 mmol/L (22.0-26.0); ABG OXYGEN SATURATION 96.6 % (94-97); ABG PCO2 (T) 53.1 mmHg (32.0-45.0); ABG PO2 (T) 91.3 mmHg (75.0-100.0); ALLEN'S TEST POSITIVE; FCOHb 0.3 % (0.0-3.9); FMetHb 0.2 % (0.0-1.5); FO2Hb 96.1 % (94-97); PATIENT TEMPERATURE 37.2; TOTAL HEMOGLOBIN 10.2 G/dl (12.0-16.0)
--- NOTE | 2021-09-05 20:30 | NUR ---
Md called regarding patient not tolerating PO and NG came out as patient was extubated. Doctor is ok with holding meds for tonight.
[2021-09-05] MEDS: polyethylene glycol 3350 17gm powd pack PO SCH ×2 (21:00→21:26)
[2021-09-05] MEDS: insulin glargine (Lantus) pen - multi-dose SQ SCH (21:24)
[2021-09-06] VITALS (24 sets, daily range): BP systolic 114–168; BP diastolic 46–84
[2021-09-06] MEDS: metoclopramide 5 mg/ml inj IV SCH ×3 (00:48→16:58)
[2021-09-06] MEDS: methylPREDNISolone sod succ 125mg/2ml vial IV SCH ×3 (00:49→16:58)
[2021-09-06] MEDS: mineral oil/petrolatum ophthal oint EACHEYE SCH ×4 (01:41→20:53)
[2021-09-06 01:55] LABS: BASOPHILS % (AUTO) 0.1 % (0-1); EOSINOPHILS % (AUTO) 0 % (0-6); HEMATOCRIT 23.9 % (35.0-45.0); HEMOGLOBIN 7.8 g/dl (12.0-16.0); LYMPHOCYTES # (AUTO) 0.5 X10'3 (1.1-4.8); LYMPHOCYTES % (AUTO) 9.7 % (21-51); MEAN CORPUSCULAR HEMOGLOBIN 27.3 PG (27.0-31.0); MEAN CORPUSCULAR HGB CONC 32.6 g/dL (33.0-36.5); MEAN CORPUSCULAR VOLUME 83.6 FL (78-98); MEAN PLATELET VOLUME 7.7 FL (7.4-10.4); MONOCYTES # (AUTO) 0.2 X10'3 (0-0.9); MONOCYTES % (AUTO) 3.5 % (2-12); NEUTROPHILS # (AUTO) 4.3 X10'3 (1.8-7.7); NEUTROPHILS % (AUTO) 86.7 % (42-75); PLATELET COUNT 429 X10'3 (140-440); RED BLOOD COUNT 2.86 X10'6 (4.20-5.60); RED CELL DISTRIBUTION WIDTH 19.2 % (11.5-14.5)
[2021-09-06 02:13] LABS: ALANINE AMINOTRANSFERASE 35 U/L (12-78); ALBUMIN 2.9 G/DL (3.4-5.0); ALKALINE PHOSPHATASE 87 IU/L (46-116); ANION GAP 11 (8-16); ASPARTATE AMINO TRANSFERASE 14 U/L (10-37); BILIRUBIN,TOTAL 0.4 MG/DL (0.1-1.0); BLOOD UREA NITROGEN 105 MG/DL (7-18); BUN/CREATININE RATIO 55.9 (6.6-38.0); CALCIUM 8.1 MG/DL (8.5-10.1); CHLORIDE 104 MMOL/L (99-107); CREATININE 1.88 MG/DL (0.40-0.90); GLUCOSE 216 MG/DL (70-104); POTASSIUM 3.9 MMOL/L (3.5-5.1); SODIUM 145 MMOL/L (135-145); TOTAL CARBON DIOXIDE 29.7 MMOL/L (24-32); TOTAL PROTEIN 5.8 G/DL (6.4-8.2); eGFR 26 ML/MIN
[2021-09-06] MEDS: ipratropium/albuterol 3ml nebule NEB SCH ×6 (02:59→23:15)
[2021-09-06 03:10] LABS: LARGE PLATELETS FEW; PLATELET ESTIMATE NORMAL
[2021-09-06 03:12] LABS: ANISOCYTOSIS 2+; POLYCHROMASIA 1+; TEAR DROP CELLS FEW
[2021-09-06] MEDS: lansoprazole 15mg solutab NG SCH (07:30)
[2021-09-06] MEDS: NYSTATIN CREAM - 30GM TUBE TP SCH ×2 (08:00→20:55)
[2021-09-06] MEDS: potassium Cl 20 mEq SR tablet NG SCH (08:00)
[2021-09-06] MEDS: docusate sodium 100mg/10ml UD cup NG SCH ×2 (08:00→20:54)
[2021-09-06] MEDS: lactobacillus rhamnosus 10,000 MMU CELLS/CAPSULE NG SCH ×2 (08:00→20:55)
[2021-09-06] MEDS: allopurinol 100mg tablet NG SCH (08:00)
[2021-09-06] MEDS: furosemide 40mg/4ml inj IV SCH ×3 (08:18→20:55)
[2021-09-06] MEDS: heparin, porcine 5000 units/ml vial SQ SCH ×2 (08:18→20:54)
[2021-09-06] MEDS: albumin (Human) 5% 250ml 500 ML IV SCH (08:22)
[2021-09-06 08:43] LABS: ABG BASE EXCESS -3.4 mmol/L (-2.0-2.0); ABG HCO3 27.8 mmol/L (22.0-26.0); ABG OXYGEN SATURATION 67.6 % (94-97); ABG PCO2 (T) 90.5 mmHg (32.0-45.0); ABG PO2 (T) 48.7 mmHg (75.0-100.0); ALLEN'S TEST POSITIVE; FCOHb 0.3 % (0.0-3.9); FMetHb 0.2 % (0.0-1.5); FO2Hb 67.3 % (94-97); TOTAL HEMOGLOBIN 11.3 G/dl (12.0-16.0)
[2021-09-06] MEDS: K and/or MAG REPLACEMENT MC SCH ×2 (08:46→19:49)
[2021-09-06] MEDS ORDERED: fentaNYL/PF 50MCG/1 ML 2ML syringe ONE (08:58)
[2021-09-06] MEDS: FENTANYL-0.9 % NACL/PF 100 ML IV PRN (09:13)
--- NOTE | 2021-09-06 11:25 | NUR ---
F/u: Pt was extubated 09/05 however reintubated 09/06 per EMR. NGT replaced and MD león resuming TF. Per KUB NG tube extends in the distal stomach or first portion of the duodenum. TF orders remain active in EMR. D/w RN to resume TF at previous goal rate as pt was tolerating. Will continue to follow closely. Addendum: 09/06/21 at [address] Amended: Links added.
[2021-09-06 11:29] LABS: ABG BASE EXCESS 0.9 mmol/L (-2.0-2.0); ABG HCO3 24.8 mmol/L (22.0-26.0); ABG OXYGEN SATURATION 96.7 % (94-97); ABG PCO2 (T) 36.4 mmHg (32.0-45.0); ABG PO2 (T) 92.4 mmHg (75.0-100.0); ALLEN'S TEST POSITIVE; FCOHb 0.3 % (0.0-3.9); FMetHb 0.3 % (0.0-1.5); FO2Hb 96.1 % (94-97); PEEP 12 cm H2O; RESPIRATORY RATE 20 b/min; TIDAL VOLUME 400 mL; TOTAL HEMOGLOBIN 8.4 G/dl (12.0-16.0)
[2021-09-06 12:41] LABS: HEMATOCRIT 24.4 % (35.0-45.0); HEMOGLOBIN 7.7 g/dl (12.0-16.0); MEAN CORPUSCULAR HEMOGLOBIN 26.7 PG (27.0-31.0); MEAN CORPUSCULAR HGB CONC 31.5 g/dL (33.0-36.5); MEAN CORPUSCULAR VOLUME 84.6 FL (78-98); PLATELET COUNT 396 X10'3 (140-440); RED BLOOD COUNT 2.89 X10'6 (4.20-5.60); RED CELL DISTRIBUTION WIDTH 19.2 % (11.5-14.5); WHITE BLOOD COUNT 6.7 X10'3 (4.5-11.0)
[2021-09-06] MEDS: insulin regular, human U-100 3ml vial - multi-dose SQ SCH ×2 (15:31→20:57)
[2021-09-06] MEDS: insulin glargine (Lantus) pen - multi-dose SQ SCH (20:58)
[2021-09-07] VITALS (23 sets, daily range): BP systolic 83–167; BP diastolic 33–77
[2021-09-07] MEDS: metoclopramide 5 mg/ml inj IV SCH ×4 (00:47→23:57)
[2021-09-07] MEDS: methylPREDNISolone sod succ 125mg/2ml vial IV SCH ×4 (00:47→23:51)
[2021-09-07] MEDS: FENTANYL-0.9 % NACL/PF 100 ML IV PRN ×3 (02:17→20:14)
[2021-09-07] MEDS: mineral oil/petrolatum ophthal oint EACHEYE SCH ×4 (02:23→19:36)
[2021-09-07] MEDS: insulin regular, human U-100 3ml vial - multi-dose SQ SCH ×4 (02:29→20:19)
[2021-09-07] MEDS: ipratropium/albuterol 3ml nebule NEB SCH ×6 (02:58→23:34)
[2021-09-07 03:10] LABS: ABG BASE EXCESS 1.1 mmol/L (-2.0-2.0); ABG HCO3 25.9 mmol/L (22.0-26.0); ABG OXYGEN SATURATION 95.8 % (94-97); ABG PCO2 (T) 42.2 mmHg (32.0-45.0); ABG PO2 (T) 86.9 mmHg (75.0-100.0); ALLEN'S TEST POSITIVE; FCOHb 0.3 % (0.0-3.9); FMetHb 0.3 % (0.0-1.5); FO2Hb 95.2 % (94-97); PATIENT TEMPERATURE 37.1; PEEP 5 cm H2O; RESPIRATORY RATE 20 b/min; TIDAL VOLUME 400 mL; TOTAL HEMOGLOBIN 9.9 G/dl (12.0-16.0)
[2021-09-07 03:37] LABS: BASOPHILS % (AUTO) 0.1 % (0-1); EOSINOPHILS % (AUTO) 0 % (0-6); HEMATOCRIT 28.1 % (35.0-45.0); HEMOGLOBIN 8.9 g/dl (12.0-16.0); LYMPHOCYTES # (AUTO) 0.4 X10'3 (1.1-4.8); LYMPHOCYTES % (AUTO) 3.8 % (21-51); MEAN CORPUSCULAR HEMOGLOBIN 26.5 PG (27.0-31.0); MEAN CORPUSCULAR HGB CONC 31.6 g/dL (33.0-36.5); MEAN PLATELET VOLUME 8.1 FL (7.4-10.4); MONOCYTES # (AUTO) 0.7 X10'3 (0-0.9); MONOCYTES % (AUTO) 6.4 % (2-12); NEUTROPHILS # (AUTO) 9.9 X10'3 (1.8-7.7); NEUTROPHILS % (AUTO) 89.7 % (42-75); PLATELET COUNT 552 X10'3 (140-440); RED BLOOD COUNT 3.34 X10'6 (4.20-5.60); RED CELL DISTRIBUTION WIDTH 19.4 % (11.5-14.5)
[2021-09-07 03:56] LABS: ALANINE AMINOTRANSFERASE 29 U/L (12-78); ALBUMIN 3.1 G/DL (3.4-5.0); ALBUMIN/GLOBULIN RATIO 1.1 (1.1-1.5); ALKALINE PHOSPHATASE 87 IU/L (46-116); ANION GAP 15 (8-16); ASPARTATE AMINO TRANSFERASE 12 U/L (10-37); BILIRUBIN,TOTAL 0.4 MG/DL (0.1-1.0); BLOOD UREA NITROGEN 112 MG/DL (7-18); BUN/CREATININE RATIO 56.3 (6.6-38.0); CALCIUM 8.3 MG/DL (8.5-10.1); CHLORIDE 105 MMOL/L (99-107); CREATININE 1.99 MG/DL (0.40-0.90); GLUCOSE 209 MG/DL (70-104); POTASSIUM 3.3 MMOL/L (3.5-5.1); SODIUM 148 MMOL/L (135-145); TOTAL CARBON DIOXIDE 27.6 MMOL/L (24-32); eGFR 24 ML/MIN
[2021-09-07 04:23] LABS: ANISOCYTOSIS 2+; PLATELET ESTIMATE INCREASED
[2021-09-07 04:24] LABS: POLYCHROMASIA 1+
[2021-09-07 04:25] LABS: STOMATOCYTES FEW; TEAR DROP CELLS FEW
[2021-09-07 04:26] LABS: LARGE PLATELETS FEW
[2021-09-07] MEDS: potassium Cl 20mEq/100mL bag 100 ML IV PRN ×2 (05:00→06:09)
[2021-09-07] MEDS ORDERED: propofol 1000mg/100ml bottle 100 ML IV ONE (07:40)
[2021-09-07] MEDS: potassium Cl 20 mEq SR tablet NG SCH (08:00)
[2021-09-07] MEDS: heparin, porcine 5000 units/ml vial SQ SCH ×2 (08:29→19:42)
[2021-09-07] MEDS: furosemide 40mg/4ml inj IV SCH ×3 (08:29→20:12)
[2021-09-07] MEDS: docusate sodium 100mg/10ml UD cup NG SCH ×2 (08:29→19:42)
[2021-09-07] MEDS: lactobacillus rhamnosus 10,000 MMU CELLS/CAPSULE NG SCH ×2 (08:30→19:42)
[2021-09-07] MEDS: allopurinol 100mg tablet NG SCH (08:30)
[2021-09-07] MEDS: lansoprazole 15mg solutab NG SCH (08:30)
[2021-09-07] MEDS: K and/or MAG REPLACEMENT MC SCH ×2 (08:33→20:00)
[2021-09-07] MEDS: NYSTATIN CREAM - 30GM TUBE TP SCH ×2 (08:33→19:42)
[2021-09-07] MEDS: propofol 1000mg/100ml bottle 100 ML IV SCH ×4 (09:25→21:58)
[2021-09-07] MEDS: polyethylene glycol 3350 17gm powd pack PO SCH (20:14)
[2021-09-07] MEDS: insulin glargine (Lantus) pen - multi-dose SQ SCH (20:20)
[2021-09-07] MEDS ORDERED: diltiazem 5mg/ml 5ml inj. IV ONE (21:50)
[2021-09-08] VITALS (33 sets, daily range): BP systolic 77–147; BP diastolic 36–54
[2021-09-08] MEDS: mineral oil/petrolatum ophthal oint EACHEYE SCH ×4 (01:35→20:21)
[2021-09-08] MEDS: insulin regular, human U-100 3ml vial - multi-dose SQ SCH ×4 (02:37→20:20)
[2021-09-08] MEDS: ipratropium/albuterol 3ml nebule NEB SCH ×6 (03:19→23:36)
[2021-09-08 03:32] LABS: ABG BASE EXCESS -0.4 mmol/L (-2.0-2.0); ABG PCO2 (T) 38.2 mmHg (32.0-45.0); ALLEN'S TEST POSITIVE; FCOHb 0.3 % (0.0-3.9); FMetHb 0.4 % (0.0-1.5); FO2Hb 97.3 % (94-97); PATIENT TEMPERATURE 37.1; PEEP 10 cm H2O; RESPIRATORY RATE 20 b/min; TIDAL VOLUME 400 mL; TOTAL HEMOGLOBIN 9.1 G/dl (12.0-16.0)
[2021-09-08 03:56] LABS: BASOPHILS % (AUTO) 0 % (0-1); EOSINOPHILS % (AUTO) 0 % (0-6); HEMATOCRIT 26.5 % (35.0-45.0); HEMOGLOBIN 8.3 g/dl (12.0-16.0); LYMPHOCYTES # (AUTO) 0.3 X10'3 (1.1-4.8); LYMPHOCYTES % (AUTO) 3.1 % (21-51); MEAN CORPUSCULAR HEMOGLOBIN 26.4 PG (27.0-31.0); MEAN CORPUSCULAR HGB CONC 31.2 g/dL (33.0-36.5); MEAN CORPUSCULAR VOLUME 84.4 FL (78-98); MEAN PLATELET VOLUME 8.3 FL (7.4-10.4); MONOCYTES # (AUTO) 0.2 X10'3 (0-0.9); MONOCYTES % (AUTO) 2.4 % (2-12); NEUTROPHILS # (AUTO) 8.4 X10'3 (1.8-7.7); NEUTROPHILS % (AUTO) 94.5 % (42-75); PLATELET COUNT 459 X10'3 (140-440); RED BLOOD COUNT 3.14 X10'6 (4.20-5.60); RED CELL DISTRIBUTION WIDTH 19.5 % (11.5-14.5); WHITE BLOOD COUNT 8.9 X10'3 (4.5-11.0)
[2021-09-08 04:06] LABS: ALANINE AMINOTRANSFERASE 24 U/L (12-78); ALBUMIN 2.8 G/DL (3.4-5.0); ALKALINE PHOSPHATASE 74 IU/L (46-116); ANION GAP 15 (8-16); ASPARTATE AMINO TRANSFERASE 11 U/L (10-37); BILIRUBIN,TOTAL 0.5 MG/DL (0.1-1.0); BLOOD UREA NITROGEN 121 MG/DL (7-18); BUN/CREATININE RATIO 56.5 (6.6-38.0); CALCIUM 8.1 MG/DL (8.5-10.1); CHLORIDE 105 MMOL/L (99-107); CREATININE 2.14 MG/DL (0.40-0.90); GLUCOSE 203 MG/DL (70-104); POTASSIUM 4.3 MMOL/L (3.5-5.1); PREALBUMIN 39.4 MG/DL (19-36); SODIUM 146 MMOL/L (135-145); TOTAL CARBON DIOXIDE 26.3 MMOL/L (24-32); TOTAL PROTEIN 5.5 G/DL (6.4-8.2); TRIGLYCERIDES 108 MG/DL (20-135); eGFR 22 ML/MIN
[2021-09-08 04:45] LABS: ANISOCYTOSIS 2+; PLATELET ESTIMATE INCREASED
[2021-09-08 04:46] LABS: POLYCHROMASIA 1+
[2021-09-08 04:47] LABS: BURR CELLS FEW; LARGE PLATELETS FEW; STOMATOCYTES FEW
[2021-09-08] MEDS: FENTANYL-0.9 % NACL/PF 100 ML IV PRN ×3 (05:44→20:33)
[2021-09-08] MEDS: lansoprazole 15mg solutab NG SCH (07:54)
[2021-09-08] MEDS: metoclopramide 5 mg/ml inj IV SCH ×3 (07:55→20:22)
[2021-09-08] MEDS: lactobacillus rhamnosus 10,000 MMU CELLS/CAPSULE NG SCH ×2 (07:55→20:21)
[2021-09-08] MEDS: methylPREDNISolone sod succ 125mg/2ml vial IV SCH ×2 (07:55→16:09)
[2021-09-08] MEDS: furosemide 40mg/4ml inj IV SCH ×3 (07:55→20:21)
[2021-09-08] MEDS: heparin, porcine 5000 units/ml vial SQ SCH ×2 (07:55→20:00)
[2021-09-08] MEDS: NYSTATIN CREAM - 30GM TUBE TP SCH ×2 (07:56→20:21)
[2021-09-08] MEDS: allopurinol 100mg tablet NG SCH (07:56)
[2021-09-08] MEDS: potassium Cl 20 mEq SR tablet NG SCH (07:57)
[2021-09-08] MEDS: docusate sodium 100mg/10ml UD cup NG SCH ×2 (07:57→20:21)
[2021-09-08] MEDS: K and/or MAG REPLACEMENT MC SCH ×2 (07:57→20:00)
--- NOTE | 2021-09-08 11:16 | NUR ---
Reassessment: Pt remains intubated and tolerating TF at goal rate with GRV WNL. Noted pt started on Propofol, visualized at bedside to be running at 7.9 mL/hr providing roughly 208 kcal/day. No changes to TF recommendations needed at this time though will likely need to be adjusted if Propofol rate increases, MD león. LBM 09/07, with a rectal tube in place though no documentation of stool output. Pt receiving routine bowel care and prokinetic agent. Will continue to follow and make recommendations as appropriate. Recommendations: 1. Continuous TF via NGT using Vital AF with 70 mL/r goal to provide 1680 mL total volume/day, 2016 kcal, 126 g protein, and 1362 mL water 2. Monitor trends in Propofol rate and need to adjust TF; currently at 7.9 mL/hr providing 208 kcal/day 3. Additional 150 mL water flush Q4H; monitor serum Na and need to adjust 4. PALB q Sunday/ 5. Daily scaled weights 6. Routine bowel care; routine prokinetic agent per MD Addendum: 09/08/21 at [address] Amended: Links added.
[2021-09-08] MEDS: propofol 1000mg/100ml bottle 100 ML IV SCH ×2 (13:10→20:32)
[2021-09-08] MEDS ORDERED: albumin (human) 25% 100 ML IV solution IV ONE (13:55)
--- NOTE | 2021-09-08 15:36 | NUR ---
Discussing POC with MD Keen at this time. Plan to d/c TF at MN, as well as to hold am SQ Heparin. D5NS to be infused at 20ml/hr overnight when TF discontinued.
[2021-09-08] MEDS ORDERED: normal saline 1000ml 100 ML IV PRN (16:20)
[2021-09-08] MEDS ORDERED: EPOETIN ALFA-EPBX 20,000 UNIT/ML 1 ML MDV IV ONE (16:20)
[2021-09-08] MEDS ORDERED: albumin (human) 25% 100ml IV 100 ML IV PRN (16:20)
[2021-09-08] MEDS ORDERED: heparin 1,000 units/ml 10ml inj HE ONE (16:25)
[2021-09-08 18:06] LABS: CLARITY,URINE CLEAR (Clear); COLOR,URINE YELLOW (Yellow); GLUCOSE, URINE NEGATIVE (Neg); KETONES,URINE NEGATIVE (Neg); LEUKOCYTE ESTERASE ,URINE NEGATIVE (Neg); NITRITES, URINE NEGATIVE (Neg); OCCULT BLOOD,URINE NEGATIVE (Neg); PROTEIN,URINE NEGATIVE (Neg); UROBILINOGEN,URINE 0.2 E.U/dL (0.2-1.0)
[2021-09-08 18:17] LABS: UA COLLECTION TYPE NON-SPECIFIED
[2021-09-08 18:18] LABS: BACTERIA,URINE NONE SEEN /HPF (Neg); RBC,URINE NONE SEEN /HPF (0-2); SQUAMOUS EPITHELIAL CELL,UR NONE SEEN /LPF (FEW); WBC,URINE NONE SEEN /HPF (0-4); YEAST MODERATE /HPF (NEGATIVE)
[2021-09-08 18:31] LABS: TOTAL PROTEIN,URINE RANDOM 10.1 MG/DL
[2021-09-08 18:41] LABS: OCCULT BLOOD STOOL NEGATIVE (Neg)
[2021-09-08 19:16] LABS: UA EOSINOPHILS NO EOS /HPF
[2021-09-08] MEDS: insulin glargine (Lantus) pen - multi-dose SQ SCH (20:17)
[2021-09-08] MEDS: polyethylene glycol 3350 17gm powd pack PO SCH (20:21)
[2021-09-09] VITALS (33 sets, daily range): BP systolic 75–152; BP diastolic 38–71
[2021-09-09 02:32] LABS: ABG BASE EXCESS -1.3 mmol/L (-2.0-2.0); ABG HCO3 22.2 mmol/L (22.0-26.0); ABG OXYGEN SATURATION 92.2 % (94-97); ABG PCO2 (T) 32.5 mmHg (32.0-45.0); ABG PO2 (T) 68.8 mmHg (75.0-100.0); ALLEN'S TEST POSITIVE; FCOHb 0.3 % (0.0-3.9); FMetHb 0.4 % (0.0-1.5); FO2Hb 91.6 % (94-97); PATIENT TEMPERATURE 37.3; PEEP 8 cm H2O; RESPIRATORY RATE 20 b/min; TIDAL VOLUME 400 mL; TOTAL HEMOGLOBIN 8.2 G/dl (12.0-16.0)
[2021-09-09] MEDS: ipratropium/albuterol 3ml nebule NEB SCH ×5 (02:40→23:34)
[2021-09-09] MEDS: mineral oil/petrolatum ophthal oint EACHEYE SCH ×4 (02:41→20:12)
[2021-09-09] MEDS: insulin regular, human U-100 3ml vial - multi-dose SQ SCH ×2 (02:47→22:08)
[2021-09-09 02:57] LABS: BASOPHILS % (AUTO) 0.3 % (0-1); EOSINOPHILS % (AUTO) 0 % (0-6); HEMATOCRIT 22.4 % (35.0-45.0); HEMOGLOBIN 7.5 g/dl (12.0-16.0); LYMPHOCYTES # (AUTO) 0.3 X10'3 (1.1-4.8); LYMPHOCYTES % (AUTO) 3.5 % (21-51); MEAN CORPUSCULAR HGB CONC 33.5 g/dL (33.0-36.5); MEAN CORPUSCULAR VOLUME 83.5 FL (78-98); MEAN PLATELET VOLUME 8.1 FL (7.4-10.4); MONOCYTES # (AUTO) 0.3 X10'3 (0-0.9); MONOCYTES % (AUTO) 3.3 % (2-12); NEUTROPHILS # (AUTO) 8.4 X10'3 (1.8-7.7); NEUTROPHILS % (AUTO) 92.9 % (42-75); PLATELET COUNT 407 X10'3 (140-440); RED BLOOD COUNT 2.68 X10'6 (4.20-5.60); WHITE BLOOD COUNT 9.1 X10'3 (4.5-11.0)
[2021-09-09 03:10] LABS: ALANINE AMINOTRANSFERASE 24 U/L (12-78); ALBUMIN/GLOBULIN RATIO 1.2 (1.1-1.5); ALKALINE PHOSPHATASE 63 IU/L (46-116); ANION GAP 15 (8-16); ASPARTATE AMINO TRANSFERASE 8 U/L (10-37); BILIRUBIN,TOTAL 0.7 MG/DL (0.1-1.0); BLOOD UREA NITROGEN 124 MG/DL (7-18); BUN/CREATININE RATIO 51.5 (6.6-38.0); CALCIUM 8.1 MG/DL (8.5-10.1); CHLORIDE 106 MMOL/L (99-107); CREATININE 2.41 MG/DL (0.40-0.90); GLUCOSE 227 MG/DL (70-104); POTASSIUM 4.6 MMOL/L (3.5-5.1); SODIUM 146 MMOL/L (135-145); TOTAL CARBON DIOXIDE 25.1 MMOL/L (24-32); TOTAL PROTEIN 5.5 G/DL (6.4-8.2); eGFR 20 ML/MIN
[2021-09-09 03:47] LABS: ANISOCYTOSIS 2+; PLATELET ESTIMATE NORMAL
[2021-09-09 03:48] LABS: BURR CELLS FEW; POLYCHROMASIA 1+
[2021-09-09 03:49] LABS: LARGE PLATELETS FEW; STOMATOCYTES FEW
[2021-09-09] MEDS: propofol 1000mg/100ml bottle 100 ML IV SCH ×3 (04:31→22:00)
[2021-09-09] MEDS: FENTANYL-0.9 % NACL/PF 100 ML IV PRN ×2 (04:32→17:54)
[2021-09-09] MEDS: K and/or MAG REPLACEMENT MC SCH ×2 (08:00→20:00)
[2021-09-09] MEDS: heparin, porcine 5000 units/ml vial SQ SCH ×2 (08:00→20:00)
[2021-09-09] MEDS: docusate sodium 100mg/10ml UD cup NG SCH ×2 (08:00→20:12)
[2021-09-09] MEDS: furosemide 40mg/4ml inj IV SCH ×3 (08:30→20:14)
[2021-09-09] MEDS: lactobacillus rhamnosus 10,000 MMU CELLS/CAPSULE NG SCH ×2 (08:31→20:12)
[2021-09-09] MEDS: potassium Cl 20 mEq SR tablet NG SCH (08:31)
[2021-09-09] MEDS: lansoprazole 15mg solutab NG SCH (08:31)
[2021-09-09] MEDS: metoclopramide 5 mg/ml inj IV SCH (08:31)
[2021-09-09] MEDS: allopurinol 100mg tablet NG SCH (08:32)
[2021-09-09] MEDS: NYSTATIN CREAM - 30GM TUBE TP SCH ×2 (08:35→20:13)
[2021-09-09] MEDS ORDERED: rocuronium 10mg/ml inj IV ONE ×2 (10:00→14:25)
[2021-09-09] MEDS ORDERED: LIDOcaine 2% (20 mg/ml) 5ml cardiac syringe ONE (10:00)
[2021-09-09] MEDS ORDERED: etomidate 2mg/ml inj. ONE (10:00)
[2021-09-09] MEDS ORDERED: heparin 1,000unit/ml 10ml vial 10 ML ONE (10:55)
[2021-09-09] MEDS ORDERED: heparin 1,000 units/ml 10ml inj HE ONE (11:15)
[2021-09-09] MEDS: albumin (human) 25% 100ml IV 100 ML IV SCH ×2 (13:27→15:54)
[2021-09-09] MEDS ORDERED: MIDAZolam 5mg/ml 2ml vial IV ONE (14:25)
[2021-09-09] MEDS ORDERED: etomidate 2mg/ml inj. IV ONE (14:25)
--- NOTE | 2021-09-09 14:31 | NUR ---
Notified of CBG 55. Plan for amp of dextrose at this time and for D5NS to be increased to 40ml/hr. Will continue to monitor.
--- NOTE | 2021-09-09 15:46 | NUR ---
Expressed concern w low ETCO2 values with RT, no changes to POC at this time
[2021-09-09 16:59] LABS: BASOPHILS % (AUTO) 0.1 % (0-1); EOSINOPHILS % (AUTO) 0.1 % (0-6); HEMATOCRIT 22.9 % (35.0-45.0); HEMOGLOBIN 7.6 g/dl (12.0-16.0); LYMPHOCYTES # (AUTO) 1.1 X10'3 (1.1-4.8); LYMPHOCYTES % (AUTO) 11.9 % (21-51); MEAN CORPUSCULAR HEMOGLOBIN 27.3 PG (27.0-31.0); MEAN CORPUSCULAR HGB CONC 33.2 g/dL (33.0-36.5); MEAN CORPUSCULAR VOLUME 82.3 FL (78-98); MEAN PLATELET VOLUME 8.2 FL (7.4-10.4); MONOCYTES # (AUTO) 0.6 X10'3 (0-0.9); MONOCYTES % (AUTO) 5.9 % (2-12); NEUTROPHILS # (AUTO) 7.8 X10'3 (1.8-7.7); PLATELET COUNT 387 X10'3 (140-440); RED BLOOD COUNT 2.78 X10'6 (4.20-5.60); RED CELL DISTRIBUTION WIDTH 19.5 % (11.5-14.5); WHITE BLOOD COUNT 9.5 X10'3 (4.5-11.0)
[2021-09-09 17:12] LABS: ANISOCYTOSIS 2+; PLATELET ESTIMATE NORMAL; TOTAL CELLS COUNTED 100
[2021-09-09 17:13] LABS: HYPOCHROMASIA 1+; POLYCHROMASIA 1+
[2021-09-09 17:14] LABS: STOMATOCYTES 1+; TEAR DROP CELLS FEW
[2021-09-09 17:15] LABS: BURR CELLS FEW
[2021-09-09 17:20] LABS: CLARITY,URINE CLEAR (Clear); COLOR,URINE YELLOW (Yellow); GLUCOSE, URINE NEGATIVE (Neg); KETONES,URINE NEGATIVE (Neg); LEUKOCYTE ESTERASE ,URINE NEGATIVE (Neg); NITRITES, URINE NEGATIVE (Neg); OCCULT BLOOD,URINE NEGATIVE (Neg); PH,URINE 5.5 (4.8-8.0); PROTEIN,URINE NEGATIVE (Neg); UROBILINOGEN,URINE 0.2 E.U/dL (0.2-1.0)
[2021-09-09 17:26] LABS: UA COLLECTION TYPE NON-SPECIFIED
[2021-09-09 17:34] LABS: SODIUM,URINE RANDOM 97 MEQ/L
[2021-09-09 17:36] LABS: TOTAL PROTEIN,URINE RANDOM < 6.0 MG/DL
--- NOTE | 2021-09-09 17:38 | NUR ---
Trach inserted at the bedside by MD Keen at 1645.
[2021-09-09 17:51] LABS: UA EOSINOPHILS NO EOS /HPF
[2021-09-09 17:54] LABS: BACTERIA,URINE FEW /HPF (Neg); RBC,URINE 0-2 /HPF (0-2); SQUAMOUS EPITHELIAL CELL,UR FEW /LPF (FEW); WBC,URINE 0-4 /HPF (0-4); YEAST MANY /HPF (NEGATIVE)
[2021-09-09] MEDS: polyethylene glycol 3350 17gm powd pack PO SCH (20:14)
[2021-09-09] MEDS: insulin glargine (Lantus) pen - multi-dose SQ SCH (21:00)
[2021-09-10] VITALS (24 sets, daily range): BP systolic 78–141; BP diastolic 31–72
[2021-09-10] MEDS: albumin (human) 25% 100ml IV 100 ML IV SCH ×4 (00:45→23:16)
[2021-09-10] MEDS: FENTANYL-0.9 % NACL/PF 100 ML IV PRN ×3 (01:14→15:19)
[2021-09-10] MEDS: mineral oil/petrolatum ophthal oint EACHEYE SCH ×4 (02:24→20:17)
[2021-09-10] MEDS: insulin regular, human U-100 3ml vial - multi-dose SQ SCH ×4 (02:32→21:07)
[2021-09-10 02:42] LABS: BASOPHILS % (AUTO) 0.1 % (0-1); EOSINOPHILS % (AUTO) 0.3 % (0-6); HEMOGLOBIN 7.2 g/dl (12.0-16.0); LYMPHOCYTES # (AUTO) 1.3 X10'3 (1.1-4.8); MEAN CORPUSCULAR HEMOGLOBIN 27.3 PG (27.0-31.0); MEAN CORPUSCULAR HGB CONC 32.6 g/dL (33.0-36.5); MEAN CORPUSCULAR VOLUME 83.5 FL (78-98); MEAN PLATELET VOLUME 8.3 FL (7.4-10.4); MONOCYTES # (AUTO) 0.6 X10'3 (0-0.9); MONOCYTES % (AUTO) 6.6 % (2-12); NEUTROPHILS # (AUTO) 7.4 X10'3 (1.8-7.7); PLATELET COUNT 350 X10'3 (140-440); RED BLOOD COUNT 2.63 X10'6 (4.20-5.60); RED CELL DISTRIBUTION WIDTH 19.3 % (11.5-14.5); WHITE BLOOD COUNT 9.4 X10'3 (4.5-11.0)
[2021-09-10 03:00] LABS: ALANINE AMINOTRANSFERASE 18 U/L (12-78); ALBUMIN 3.5 G/DL (3.4-5.0); ALBUMIN/GLOBULIN RATIO 1.8 (1.1-1.5); ALKALINE PHOSPHATASE 56 IU/L (46-116); ANION GAP 10 (8-16); ASPARTATE AMINO TRANSFERASE 6 U/L (10-37); BILIRUBIN,TOTAL 0.8 MG/DL (0.1-1.0); BLOOD UREA NITROGEN 73 MG/DL (7-18); BUN/CREATININE RATIO 45.9 (6.6-38.0); CHLORIDE 107 MMOL/L (99-107); CREATININE 1.59 MG/DL (0.40-0.90); GLUCOSE 75 MG/DL (70-104); POTASSIUM 3.7 MMOL/L (3.5-5.1); SODIUM 145 MMOL/L (135-145); TOTAL CARBON DIOXIDE 27.6 MMOL/L (24-32); TOTAL PROTEIN 5.4 G/DL (6.4-8.2); eGFR 32 ML/MIN
[2021-09-10] MEDS: ipratropium/albuterol 3ml nebule NEB SCH ×6 (03:23→23:12)
[2021-09-10 03:38] LABS: ABG BASE EXCESS -0.5 mmol/L (-2.0-2.0); ABG HCO3 23.5 mmol/L (22.0-26.0); ABG PCO2 (T) 35.3 mmHg (32.0-45.0); ABG PO2 (T) 69.5 mmHg (75.0-100.0); ALLEN'S TEST POSITIVE; FCOHb 0.2 % (0.0-3.9); FMetHb 0.2 % (0.0-1.5); FO2Hb 92.6 % (94-97); PATIENT TEMPERATURE 36.8; PEEP 8 cm H2O; RESPIRATORY RATE 20 b/min; TIDAL VOLUME 400 mL; TOTAL HEMOGLOBIN 8.4 G/dl (12.0-16.0)
--- NOTE | 2021-09-10 06:40 | NUR ---
Patient in room CICU 2012. I have received report from Valdo ECHEVARRIA and had the opportunity to ask questions and assume patient care.
[2021-09-10] MEDS: K and/or MAG REPLACEMENT MC SCH ×2 (07:46→20:00)
[2021-09-10] MEDS: heparin, porcine 5000 units/ml vial SQ SCH ×2 (07:53→20:16)
[2021-09-10] MEDS: lansoprazole 15mg solutab NG SCH (07:53)
[2021-09-10] MEDS: furosemide 40mg/4ml inj IV SCH ×2 (07:53→13:10)
[2021-09-10] MEDS: allopurinol 100mg tablet NG SCH (07:53)
[2021-09-10] MEDS: potassium Cl 20 mEq SR tablet NG SCH (07:53)
[2021-09-10] MEDS: NYSTATIN CREAM - 30GM TUBE TP SCH ×2 (07:54→20:16)
[2021-09-10] MEDS: docusate sodium 100mg/10ml UD cup NG SCH ×2 (07:54→20:17)
[2021-09-10 08:39] LABS: MAGNESIUM 2.1 MG/DL (1.5-2.4); PHOSPHORUS 4.5 MG/DL (2.3-4.5)
[2021-09-10] MEDS ORDERED: amiodarone 150mg/dext, iso-os 100 ML IV ONE (11:25)
[2021-09-10] MEDS: amiodarone/D5 360MG/200ML BAG 200 ML IV SCH ×3 (11:50→23:25)
[2021-09-10] MEDS: propofol 1000mg/100ml bottle 100 ML IV SCH ×2 (15:19→22:41)
--- NOTE | 2021-09-10 17:53 | NUR ---
Patient sedated with Fentanyl & Propofol. When patient agitated she quickly desats into low 70's. At beginning of shift patient was in afib. Loaded with Amiodarone and on gtt. HR converted to SR with frequent PAC's. No drainage from rt. chest tube. Left draining serous fluid. 3+ edema. Marginal UO.
--- NOTE | 2021-09-10 18:13 | NUR ---
Problems reprioritized. Patient report given, questions answered & plan of care reviewed with Valdo RN.
[2021-09-10] MEDS: polyethylene glycol 3350 17gm powd pack PO SCH (20:16)
[2021-09-10] MEDS: insulin glargine (Lantus) pen - multi-dose SQ SCH (21:05)
[2021-09-11] VITALS (23 sets, daily range): BP systolic 97–176; BP diastolic 35–98
[2021-09-11] MEDS: mineral oil/petrolatum ophthal oint EACHEYE SCH ×4 (01:35→21:13)
[2021-09-11] MEDS: insulin regular, human U-100 3ml vial - multi-dose SQ SCH ×4 (02:10→21:25)
[2021-09-11] MEDS: ipratropium/albuterol 3ml nebule NEB SCH ×6 (02:20→23:01)
[2021-09-11 03:10] LABS: BASOPHILS % (AUTO) 0.1 % (0-1); EOSINOPHILS # (AUTO) 0.1 X10'3 (0-0.9); HEMATOCRIT 22.2 % (35.0-45.0); HEMOGLOBIN 7.1 g/dl (12.0-16.0); LYMPHOCYTES # (AUTO) 0.9 X10'3 (1.1-4.8); LYMPHOCYTES % (AUTO) 7.8 % (21-51); MEAN CORPUSCULAR HEMOGLOBIN 26.6 PG (27.0-31.0); MEAN CORPUSCULAR VOLUME 83.2 FL (78-98); MEAN PLATELET VOLUME 8.8 FL (7.4-10.4); MONOCYTES # (AUTO) 0.8 X10'3 (0-0.9); MONOCYTES % (AUTO) 6.9 % (2-12); NEUTROPHILS # (AUTO) 9.8 X10'3 (1.8-7.7); NEUTROPHILS % (AUTO) 84.2 % (42-75); PLATELET COUNT 334 X10'3 (140-440); RED BLOOD COUNT 2.67 X10'6 (4.20-5.60); WHITE BLOOD COUNT 11.7 X10'3 (4.5-11.0)
[2021-09-11 03:27] LABS: ALANINE AMINOTRANSFERASE 25 U/L (12-78); ALBUMIN/GLOBULIN RATIO 2.1 (1.1-1.5); ALKALINE PHOSPHATASE 71 IU/L (46-116); ANION GAP 17 (8-16); ASPARTATE AMINO TRANSFERASE 18 U/L (10-37); BILIRUBIN,TOTAL 1.1 MG/DL (0.1-1.0); BLOOD UREA NITROGEN 87 MG/DL (7-18); BUN/CREATININE RATIO 44.2 (6.6-38.0); CALCIUM 8.4 MG/DL (8.5-10.1); CHLORIDE 99 MMOL/L (99-107); CREATININE 1.97 MG/DL (0.40-0.90); GLUCOSE 163 MG/DL (70-104); POTASSIUM 4.2 MMOL/L (3.5-5.1); SODIUM 140 MMOL/L (135-145); TOTAL PROTEIN 5.9 G/DL (6.4-8.2); eGFR 25 ML/MIN
[2021-09-11] MEDS: FENTANYL-0.9 % NACL/PF 100 ML IV PRN ×3 (04:07→23:29)
--- NOTE | 2021-09-11 06:30 | NUR ---
Patient in room CICU 2013. I have received report and had the opportunity to ask questions and assume patient care.
[2021-09-11] MEDS: K and/or MAG REPLACEMENT MC SCH ×2 (08:00→20:00)
--- NOTE | 2021-09-11 08:20 | NUR ---
Reassessment: Pt remains intubated and sedated, tolerating TF at goal. Per RN, pt now maxed on Propofol at 20mcg, or 10.116ml/hr, providing additional 267kcals/day. Adjusted TF recs below to avoid overfeeding on vent while pt receiving propofol. Noted that pt now has tracheostomy and also received HD 09/09. Water flush has been increased to 200ml Q4H per MD. Pt w/ rectal tube though only documented w/ small BM on 09/10, Will continue to monitor. Recommendations: 1. Continuous TF via NGT using Vital AF with 65 mL/r goal to provide 1560 mL total volume/day, 1872 kcal, 117 g protein, and 40670 mL water 2. Monitor trends in Propofol rate and need to adjust TF; currently at 10.116 mL/hr providing 267 kcal/day 3. Additional 200 mL water flush Q4H per MD; monitor serum Na and need to adjust 4. PALB q Sunday/ 5. Daily scaled weights 6. Routine bowel care; routine prokinetic agent per MD Addendum: 09/11/21 at [address] Amended: Links added.
[2021-09-11] MEDS: lansoprazole 15mg solutab NG SCH (08:25)
[2021-09-11] MEDS: docusate sodium 100mg/10ml UD cup NG SCH ×2 (08:26→21:13)
[2021-09-11] MEDS: potassium Cl 20 mEq SR tablet NG SCH (08:26)
[2021-09-11] MEDS: albumin (human) 25% 100ml IV 100 ML IV SCH ×2 (08:28→17:16)
[2021-09-11] MEDS: heparin, porcine 5000 units/ml vial SQ SCH ×2 (08:29→21:14)
[2021-09-11] MEDS: allopurinol 100mg tablet NG SCH (08:31)
[2021-09-11] MEDS: NYSTATIN CREAM - 30GM TUBE TP SCH ×2 (08:32→21:14)
[2021-09-11] MEDS: propofol 1000mg/100ml bottle 100 ML IV SCH ×2 (10:52→18:37)
[2021-09-11] MEDS ORDERED: magnesium hydroxide 30ml (MOM) UD suspension NG PRN (15:23)
[2021-09-11] MEDS ORDERED: mag hydrox/Alum hydrox/simeth 30ml oral suspension NG PRN (15:23)
[2021-09-11] MEDS ORDERED: dextrose ORAL solution 15 GM/59 ML bottle NG PRN ×2 (15:23)
[2021-09-11] MEDS ORDERED: ondansetron 4mg rapidly disintigrating tab NG PRN (15:24)
[2021-09-11] MEDS ORDERED: temazepam 15mg capsule NG PRN (15:24)
[2021-09-11] MEDS ORDERED: acetaminophen 325mg/10.15ml oral unit dose solution NG PRN (15:25)
[2021-09-11] MEDS ORDERED: potassium Cl 20 mEq SR tablet NG PRN ×2 (15:25)
[2021-09-11] MEDS: amiodarone/D5 360MG/200ML BAG 200 ML IV SCH ×4 (17:15→23:25)
--- NOTE | 2021-09-11 18:10 | NUR ---
Problems reprioritized. Patient report given, questions answered & plan of care reviewed with Haider CEHEVARRIA.
--- NOTE | 2021-09-11 18:11 | NUR ---
Problems reprioritized. Patient report given, questions answered & plan of care reviewed with WALE Rodriguez.
[2021-09-11] MEDS: polyethylene glycol 3350 17gm powd pack NG SCH (21:13)
[2021-09-11] MEDS: insulin glargine (Lantus) pen - multi-dose SQ SCH (21:25)
[2021-09-12] VITALS (27 sets, daily range): BP systolic 97–187; BP diastolic 33–102
[2021-09-12] MEDS: albumin (human) 25% 100ml IV 100 ML IV SCH ×2 (00:02→08:46)
[2021-09-12] MEDS: mineral oil/petrolatum ophthal oint EACHEYE SCH ×4 (02:05→20:43)
[2021-09-12] MEDS: insulin regular, human U-100 3ml vial - multi-dose SQ SCH ×4 (02:07→20:42)
[2021-09-12 03:18] LABS: BASOPHILS % (AUTO) 0.2 % (0-1); EOSINOPHILS # (AUTO) 0.1 X10'3 (0-0.9); EOSINOPHILS % (AUTO) 1.6 % (0-6); LYMPHOCYTES # (AUTO) 0.7 X10'3 (1.1-4.8); LYMPHOCYTES % (AUTO) 9.6 % (21-51); MEAN CORPUSCULAR HEMOGLOBIN 27.1 PG (27.0-31.0); MEAN CORPUSCULAR HGB CONC 32.3 g/dL (33.0-36.5); MEAN CORPUSCULAR VOLUME 83.8 FL (78-98); MEAN PLATELET VOLUME 9.1 FL (7.4-10.4); MONOCYTES # (AUTO) 0.6 X10'3 (0-0.9); MONOCYTES % (AUTO) 7.8 % (2-12); NEUTROPHILS # (AUTO) 6.3 X10'3 (1.8-7.7); NEUTROPHILS % (AUTO) 80.8 % (42-75); PLATELET COUNT 271 X10'3 (140-440); RED BLOOD COUNT 2.38 X10'6 (4.20-5.60); RED CELL DISTRIBUTION WIDTH 19.8 % (11.5-14.5); WHITE BLOOD COUNT 7.8 X10'3 (4.5-11.0)
[2021-09-12 03:45] LABS: ALANINE AMINOTRANSFERASE 27 U/L (12-78); ALBUMIN 3.8 G/DL (3.4-5.0); ALBUMIN/GLOBULIN RATIO 1.8 (1.1-1.5); ALKALINE PHOSPHATASE 62 IU/L (46-116); ANION GAP 19 (8-16); ASPARTATE AMINO TRANSFERASE 18 U/L (10-37); BLOOD UREA NITROGEN 96 MG/DL (7-18); BUN/CREATININE RATIO 43.6 (6.6-38.0); CALCIUM 8.5 MG/DL (8.5-10.1); CHLORIDE 98 MMOL/L (99-107); GLUCOSE 106 MG/DL (70-104); POTASSIUM 4.2 MMOL/L (3.5-5.1); PREALBUMIN 20.4 MG/DL (19-36); SODIUM 139 MMOL/L (135-145); TOTAL CARBON DIOXIDE 21.9 MMOL/L (24-32); TOTAL PROTEIN 5.9 G/DL (6.4-8.2); eGFR 22 ML/MIN
[2021-09-12 03:51] LABS: HEMATOCRIT 19.9 % (35.0-45.0); HEMOGLOBIN 6.4 g/dl (12.0-16.0)
[2021-09-12] MEDS: ipratropium/albuterol 3ml nebule NEB SCH ×6 (03:59→23:05)
--- NOTE | 2021-09-12 04:57 | NUR ---
0430: HH critically low at 6.4 and 19.9. Order obtained from Yamilet WNITER to transfuse 1 unit of blood. Patient not ansering appropriately to give consent. Attempted to reach patient's sister Adrienne over phone to obtain verbal consent for blood transfusion. Left voicemail, no answer recieved. 0455: Notified Yamilet WINTER that I was unable to obtain verbal consent for blood transfusion. Informed that voicemail was left and have not had call back. states to wait until Adrienne calls back, okay to pass on to dayshift RN. Will continue to monitor patient closely. Will wait for call back until end of shift and will notify RN taking patient for dayshift.
[2021-09-12] MEDS: amiodarone/D5 360MG/200ML BAG 200 ML IV SCH ×4 (05:30→23:25)
--- NOTE | 2021-09-12 06:28 | NUR ---
Problems reprioritized. Patient report given, questions answered & plan of care reviewed with Haider ECHEVARRIA.
[2021-09-12] MEDS: K and/or MAG REPLACEMENT MC SCH ×2 (08:00→20:00)
[2021-09-12] MEDS: docusate sodium 100mg/10ml UD cup NG SCH ×2 (08:43→20:19)
[2021-09-12] MEDS: potassium Cl 20 mEq SR tablet NG SCH (08:44)
[2021-09-12] MEDS: allopurinol 100mg tablet NG SCH (08:44)
[2021-09-12] MEDS: heparin, porcine 5000 units/ml vial SQ SCH ×2 (08:45→20:19)
[2021-09-12] MEDS: NYSTATIN CREAM - 30GM TUBE TP SCH ×2 (08:45→20:19)
[2021-09-12] MEDS: FENTANYL-0.9 % NACL/PF 100 ML IV PRN ×2 (08:48→19:52)
[2021-09-12] MEDS: lansoprazole 15mg solutab NG SCH (08:54)
[2021-09-12 09:33] LABS: TRIGLYCERIDES 104 MG/DL (20-135)
--- NOTE | 2021-09-12 11:15 | NUR ---
F/u 09/11: Noted pt TF at 70ml/hr while still on propofol at 10.09ml/hr; NASREEN d/w RN regarding decrease to 65ml/hr per current order in EMR. Addendum: 09/12/21 at [address] Amended: Links added.
[2021-09-12] MEDS: propofol 1000mg/100ml bottle 100 ML IV SCH (11:52)
[2021-09-12 12:41] LABS: HEMATOCRIT 23.7 % (35.0-45.0); HEMOGLOBIN 7.7 g/dl (12.0-16.0); MEAN CORPUSCULAR HEMOGLOBIN 27.7 PG (27.0-31.0); MEAN CORPUSCULAR HGB CONC 32.7 g/dL (33.0-36.5); MEAN CORPUSCULAR VOLUME 84.7 FL (78-98); MEAN PLATELET VOLUME 8.9 FL (7.4-10.4); PLATELET COUNT 302 X10'3 (140-440); RED BLOOD COUNT 2.79 X10'6 (4.20-5.60); RED CELL DISTRIBUTION WIDTH 19.4 % (11.5-14.5); WHITE BLOOD COUNT 10.2 X10'3 (4.5-11.0)
--- NOTE | 2021-09-12 18:16 | NUR ---
Patient in room CICU 2013. I have received report from Haider ECHEVARRIA and had the opportunity to ask questions and assume patient care.
[2021-09-12] MEDS: polyethylene glycol 3350 17gm powd pack NG SCH (20:18)
[2021-09-12] MEDS: insulin glargine (Lantus) pen - multi-dose SQ SCH (20:43)
[2021-09-13] VITALS (24 sets, daily range): BP systolic 93–158; BP diastolic 36–74
[2021-09-13] MEDS: mineral oil/petrolatum ophthal oint EACHEYE SCH ×4 (02:00→20:40)
[2021-09-13 03:10] LABS: BASOPHILS % (AUTO) 0.3 % (0-1); EOSINOPHILS # (AUTO) 0.1 X10'3 (0-0.9); EOSINOPHILS % (AUTO) 1.3 % (0-6); HEMATOCRIT 22.8 % (35.0-45.0); HEMOGLOBIN 7.4 g/dl (12.0-16.0); LYMPHOCYTES # (AUTO) 0.7 X10'3 (1.1-4.8); MEAN CORPUSCULAR HEMOGLOBIN 27.3 PG (27.0-31.0); MEAN CORPUSCULAR HGB CONC 32.4 g/dL (33.0-36.5); MEAN CORPUSCULAR VOLUME 84.3 FL (78-98); MEAN PLATELET VOLUME 9.3 FL (7.4-10.4); MONOCYTES # (AUTO) 0.8 X10'3 (0-0.9); MONOCYTES % (AUTO) 9.3 % (2-12); NEUTROPHILS # (AUTO) 6.5 X10'3 (1.8-7.7); NEUTROPHILS % (AUTO) 80.1 % (42-75); PLATELET COUNT 275 X10'3 (140-440); RED BLOOD COUNT 2.71 X10'6 (4.20-5.60); RED CELL DISTRIBUTION WIDTH 18.9 % (11.5-14.5); WHITE BLOOD COUNT 8.1 X10'3 (4.5-11.0)
[2021-09-13] MEDS: ipratropium/albuterol 3ml nebule NEB SCH ×6 (03:20→23:22)
[2021-09-13 03:26] LABS: ALANINE AMINOTRANSFERASE 34 U/L (12-78); ALBUMIN 3.3 G/DL (3.4-5.0); ALBUMIN/GLOBULIN RATIO 1.4 (1.1-1.5); ALKALINE PHOSPHATASE 81 IU/L (46-116); ANION GAP 18 (8-16); ASPARTATE AMINO TRANSFERASE 20 U/L (10-37); BILIRUBIN,TOTAL 1.2 MG/DL (0.1-1.0); BLOOD UREA NITROGEN 100 MG/DL (7-18); CALCIUM 8.6 MG/DL (8.5-10.1); CHLORIDE 99 MMOL/L (99-107); GLUCOSE 70 MG/DL (70-104); POTASSIUM 4.2 MMOL/L (3.5-5.1); SODIUM 138 MMOL/L (135-145); TOTAL CARBON DIOXIDE 21.2 MMOL/L (24-32); TOTAL PROTEIN 5.6 G/DL (6.4-8.2); eGFR 19 ML/MIN
[2021-09-13] MEDS: amiodarone/D5 360MG/200ML BAG 200 ML IV SCH (04:22)
[2021-09-13 04:24] LABS: ANISOCYTOSIS 2+; PLATELET ESTIMATE NORMAL; TOTAL CELLS COUNTED 100
[2021-09-13 04:25] LABS: BURR CELLS FEW; SCHISTOCYTES FEW; TEAR DROP CELLS FEW
[2021-09-13 04:26] LABS: POLYCHROMASIA FEW
[2021-09-13] MEDS: FENTANYL-0.9 % NACL/PF 100 ML IV PRN ×2 (05:42→16:36)
--- NOTE | 2021-09-13 06:34 | NUR ---
Problems reprioritized. Patient report given, questions answered & plan of care reviewed with Jai ECHEVARRIA.
[2021-09-13] MEDS: propofol 1000mg/100ml bottle 100 ML IV SCH ×2 (06:36→16:55)
[2021-09-13] MEDS: insulin regular, human U-100 3ml vial - multi-dose SQ SCH ×3 (07:58→20:48)
[2021-09-13] MEDS: docusate sodium 100mg/10ml UD cup NG SCH ×2 (08:00→20:00)
[2021-09-13] MEDS: K and/or MAG REPLACEMENT MC SCH ×2 (08:00→20:00)
[2021-09-13] MEDS: lansoprazole 15mg solutab NG SCH (09:06)
[2021-09-13] MEDS: potassium Cl 20 mEq SR tablet NG SCH (09:08)
[2021-09-13] MEDS: NYSTATIN CREAM - 30GM TUBE TP SCH ×2 (09:08→20:41)
[2021-09-13] MEDS: heparin, porcine 5000 units/ml vial SQ SCH ×2 (09:11→20:40)
[2021-09-13] MEDS: allopurinol 100mg tablet NG SCH (09:12)
[2021-09-13] MEDS ORDERED: EPOETIN ALFA-EPBX 20,000 UNIT/ML 1 ML MDV IV ONE (12:05)
[2021-09-13] MEDS ORDERED: heparin 1,000unit/ml 10ml vial 10 ML IV ONE (12:05)
[2021-09-13] MEDS ORDERED: normal saline 1000ml 250 ML IV PRN (12:05)
[2021-09-13] MEDS ORDERED: heparin 1,000 units/ml 10ml inj HE ONE ×2 (12:10)
--- NOTE | 2021-09-13 18:30 | NUR ---
Patient in room ICU 2043. I have received report from Jai ECHEVARRIA and had the opportunity to ask questions and assume patient care.
--- NOTE | 2021-09-13 20:30 | NUR ---
2000 Residual check resulted in 475ml. 300ml returned, held H20 flush and reduced TF to half the rate. Will recheck and continue to monitor.
[2021-09-13] MEDS: polyethylene glycol 3350 17gm powd pack NG SCH (20:41)
[2021-09-13] MEDS: insulin glargine (Lantus) pen - multi-dose SQ SCH (20:47)
[2021-09-14] VITALS (24 sets, daily range): BP systolic 92–157; BP diastolic 32–67
[2021-09-14] MEDS: mineral oil/petrolatum ophthal oint EACHEYE SCH ×4 (02:22→20:14)
[2021-09-14] MEDS: insulin regular, human U-100 3ml vial - multi-dose SQ SCH ×2 (02:24→20:57)
[2021-09-14] MEDS: FENTANYL-0.9 % NACL/PF 100 ML IV PRN ×3 (03:27→23:06)
[2021-09-14 03:28] LABS: BASOPHILS % (AUTO) 0.4 % (0-1); EOSINOPHILS # (AUTO) 0.1 X10'3 (0-0.9); EOSINOPHILS % (AUTO) 1.2 % (0-6); HEMATOCRIT 24.8 % (35.0-45.0); LYMPHOCYTES # (AUTO) 0.9 X10'3 (1.1-4.8); LYMPHOCYTES % (AUTO) 9.1 % (21-51); MEAN CORPUSCULAR HEMOGLOBIN 27.5 PG (27.0-31.0); MEAN CORPUSCULAR HGB CONC 32.4 g/dL (33.0-36.5); MEAN CORPUSCULAR VOLUME 84.9 FL (78-98); MEAN PLATELET VOLUME 9.2 FL (7.4-10.4); MONOCYTES # (AUTO) 1.1 X10'3 (0-0.9); MONOCYTES % (AUTO) 11.5 % (2-12); NEUTROPHILS # (AUTO) 7.4 X10'3 (1.8-7.7); NEUTROPHILS % (AUTO) 77.8 % (42-75); PLATELET COUNT 305 X10'3 (140-440); RED BLOOD COUNT 2.92 X10'6 (4.20-5.60); RED CELL DISTRIBUTION WIDTH 19.6 % (11.5-14.5); WHITE BLOOD COUNT 9.5 X10'3 (4.5-11.0)
[2021-09-14] MEDS: ipratropium/albuterol 3ml nebule NEB SCH ×6 (03:37→22:56)
[2021-09-14 03:47] LABS: ALANINE AMINOTRANSFERASE 31 U/L (12-78); ALBUMIN 3.1 G/DL (3.4-5.0); ALBUMIN/GLOBULIN RATIO 1.1 (1.1-1.5); ALKALINE PHOSPHATASE 97 IU/L (46-116); ANION GAP 13 (8-16); ASPARTATE AMINO TRANSFERASE 16 U/L (10-37); BILIRUBIN,TOTAL 1.4 MG/DL (0.1-1.0); BLOOD UREA NITROGEN 64 MG/DL (7-18); BUN/CREATININE RATIO 33.5 (6.6-38.0); CHLORIDE 100 MMOL/L (99-107); CREATININE 1.91 MG/DL (0.40-0.90); GLUCOSE 129 MG/DL (70-104); MAGNESIUM 1.9 MG/DL (1.5-2.4); PHOSPHORUS 5.2 MG/DL (2.3-4.5); POTASSIUM 4.2 MMOL/L (3.5-5.1); SODIUM 139 MMOL/L (135-145); TOTAL CARBON DIOXIDE 25.9 MMOL/L (24-32); TOTAL PROTEIN 5.8 G/DL (6.4-8.2); eGFR 26 ML/MIN
[2021-09-14] MEDS: propofol 1000mg/100ml bottle 100 ML IV SCH ×3 (04:53→20:00)
[2021-09-14 05:06] LABS: PLATELET ESTIMATE NORMAL
[2021-09-14 05:07] LABS: ANISOCYTOSIS 2+
[2021-09-14 05:08] LABS: BURR CELLS FEW; POLYCHROMASIA FEW; SCHISTOCYTES FEW
--- NOTE | 2021-09-14 06:28 | NUR ---
Problems reprioritized. Patient report given, questions answered & plan of care reviewed with Jai ECHEVARRIA.
[2021-09-14] MEDS: K and/or MAG REPLACEMENT MC SCH ×2 (08:00→20:17)
[2021-09-14] MEDS: docusate sodium 100mg/10ml UD cup NG SCH ×2 (08:00→20:00)
[2021-09-14] MEDS: heparin, porcine 5000 units/ml vial SQ SCH ×2 (08:19→20:11)
[2021-09-14] MEDS: NYSTATIN CREAM - 30GM TUBE TP SCH ×2 (08:20→20:00)
[2021-09-14] MEDS: lansoprazole 15mg solutab NG SCH (08:20)
[2021-09-14] MEDS: potassium Cl 20 mEq SR tablet NG SCH (08:20)
[2021-09-14] MEDS: allopurinol 100mg tablet NG SCH (08:20)
--- NOTE | 2021-09-14 10:57 | NUR ---
F/u 09/14: Pt remains intubated tolerating TF at goal GRV WNL. Noted GRV 475ml last night down to 225ml this AM; colace and miralax had been held for diarrhea though only documented 200ml stool output past 3 days per EMR. Would benefit from continuing bowel care. Propofol weaned to 5.17ml/hr during RD rounds this AM providing additional 136 kcals/day. Pt resumed HD yesterday w/ 200ml Q4H free water to continue per MD. Will continue to monitor for TF tolerance and adjustment needs as medically indicated. Recommendations: 1. Continuous TF via NGT using Vital AF with 65 mL/r goal to provide 1560 mL total volume/day, 1872 kcal, 117 g protein, and 29127 mL water 2. Monitor trends in Propofol rate and need to adjust TF; currently at 5.17mL/hr providing 136 kcal/day 3. Additional 200 mL water flush Q4H per MD on HD 4. PALB q Sunday/; Daily scaled weights 5. Routine bowel care Addendum: 09/14/21 at [address] Amended: Links added.
[2021-09-14] MEDS ORDERED: propofol 1000mg/100ml bottle 100 ML IV SCH (15:55)
[2021-09-14 16:48] LABS: TRIGLYCERIDES 197 MG/DL (20-135)
[2021-09-14] MEDS: insulin glargine (Lantus) pen - multi-dose SQ SCH (20:58)
[2021-09-14] MEDS: polyethylene glycol 3350 17gm powd pack NG SCH (21:01)
[2021-09-15] VITALS (24 sets, daily range): BP systolic 91–178; BP diastolic 38–81
[2021-09-15] MEDS: propofol 1000mg/100ml bottle 100 ML IV SCH (02:05)
[2021-09-15] MEDS: insulin regular, human U-100 3ml vial - multi-dose SQ SCH ×4 (02:12→22:34)
[2021-09-15] MEDS: mineral oil/petrolatum ophthal oint EACHEYE SCH ×4 (02:16→20:00)
[2021-09-15] MEDS: ipratropium/albuterol 3ml nebule NEB SCH ×6 (03:21→23:47)
[2021-09-15 03:30] LABS: BASOPHILS % (AUTO) 0.3 % (0-1); EOSINOPHILS # (AUTO) 0.1 X10'3 (0-0.9); EOSINOPHILS % (AUTO) 1.1 % (0-6); HEMOGLOBIN 7.6 g/dl (12.0-16.0); LYMPHOCYTES # (AUTO) 0.9 X10'3 (1.1-4.8); LYMPHOCYTES % (AUTO) 8.8 % (21-51); MEAN CORPUSCULAR HEMOGLOBIN 27.7 PG (27.0-31.0); MEAN CORPUSCULAR HGB CONC 32.9 g/dL (33.0-36.5); MEAN CORPUSCULAR VOLUME 84.2 FL (78-98); MEAN PLATELET VOLUME 8.7 FL (7.4-10.4); MONOCYTES # (AUTO) 0.9 X10'3 (0-0.9); MONOCYTES % (AUTO) 8.5 % (2-12); NEUTROPHILS # (AUTO) 8.4 X10'3 (1.8-7.7); NEUTROPHILS % (AUTO) 81.3 % (42-75); PLATELET COUNT 298 X10'3 (140-440); RED BLOOD COUNT 2.73 X10'6 (4.20-5.60); RED CELL DISTRIBUTION WIDTH 19.8 % (11.5-14.5); WHITE BLOOD COUNT 10.3 X10'3 (4.5-11.0)
[2021-09-15 03:40] LABS: ABG BASE EXCESS -3.9 mmol/L (-2.0-2.0); ABG HCO3 19.5 mmol/L (22.0-26.0); ABG OXYGEN SATURATION 90.7 % (94-97); ABG PCO2 (T) 28.6 mmHg (32.0-45.0); ABG PO2 (T) 61.1 mmHg (75.0-100.0); ALLEN'S TEST POSITIVE; FCOHb 0.4 % (0.0-3.9); FMetHb 0.2 % (0.0-1.5); FO2Hb 90.2 % (94-97); PATIENT TEMPERATURE 36.8; PEEP 5 cm H2O; RESPIRATORY RATE 20 b/min; TIDAL VOLUME 400 mL; TOTAL HEMOGLOBIN 7.9 G/dl (12.0-16.0)
[2021-09-15 03:48] LABS: ALANINE AMINOTRANSFERASE 32 U/L (12-78); ALBUMIN 2.9 G/DL (3.4-5.0); ALBUMIN/GLOBULIN RATIO 1.2 (1.1-1.5); ALKALINE PHOSPHATASE 100 IU/L (46-116); ANION GAP 14 (8-16); ASPARTATE AMINO TRANSFERASE 15 U/L (10-37); BILIRUBIN,TOTAL 1.3 MG/DL (0.1-1.0); BLOOD UREA NITROGEN 75 MG/DL (7-18); BUN/CREATININE RATIO 32.2 (6.6-38.0); CALCIUM 9.1 MG/DL (8.5-10.1); CHLORIDE 98 MMOL/L (99-107); CREATININE 2.33 MG/DL (0.40-0.90); GLUCOSE 128 MG/DL (70-104); MAGNESIUM 2.1 MG/DL (1.5-2.4); PREALBUMIN 17.2 MG/DL (19-36); SODIUM 136 MMOL/L (135-145); TOTAL CARBON DIOXIDE 24.4 MMOL/L (24-32); TOTAL PROTEIN 5.4 G/DL (6.4-8.2); TRIGLYCERIDES 226 MG/DL (20-135); eGFR 20 ML/MIN
[2021-09-15 04:42] LABS: ANISOCYTOSIS 2+; PLATELET ESTIMATE NORMAL; TOTAL CELLS COUNTED 100
[2021-09-15 04:44] LABS: POLYCHROMASIA FEW; TEAR DROP CELLS FEW
--- NOTE | 2021-09-15 06:21 | NUR ---
Problems reprioritized. Patient report given, questions answered & plan of care reviewed with WALE Vergara.
[2021-09-15] MEDS: K and/or MAG REPLACEMENT MC SCH ×2 (08:00→20:00)
[2021-09-15] MEDS: potassium Cl 20 mEq SR tablet NG SCH (08:00)
[2021-09-15] MEDS: heparin, porcine 5000 units/ml vial SQ SCH ×2 (08:10→21:54)
[2021-09-15] MEDS: allopurinol 100mg tablet NG SCH (08:10)
[2021-09-15] MEDS: docusate sodium 100mg/10ml UD cup NG SCH ×2 (08:10→20:00)
[2021-09-15] MEDS: NYSTATIN CREAM - 30GM TUBE TP SCH ×2 (08:11→21:56)
[2021-09-15] MEDS: lansoprazole 15mg solutab NG SCH (08:11)
[2021-09-15] MEDS ORDERED: heparin 1,000unit/ml 10ml vial 10 ML IV ONE (09:45)
[2021-09-15] MEDS ORDERED: normal saline 1000ml 250 ML IV PRN (09:45)
[2021-09-15] MEDS ORDERED: EPOETIN ALFA-EPBX 20,000 UNIT/ML 1 ML MDV IV ONE (09:45)
[2021-09-15] MEDS ORDERED: heparin 1,000 units/ml 10ml inj HE ONE ×2 (09:50)
[2021-09-15] MEDS: dexmedetomidin/NS 400mcg/100ml 100 ML IV SCH ×3 (10:33→22:56)
[2021-09-15] MEDS: polyethylene glycol 3350 17gm powd pack NG SCH (21:54)
[2021-09-15] MEDS: acetaminophen 325mg/10.15ml oral unit dose solution NG PRN (21:55)
[2021-09-15] MEDS: insulin glargine (Lantus) pen - multi-dose SQ SCH (22:35)
[2021-09-16] VITALS (24 sets, daily range): BP systolic 119–165; BP diastolic 38–88
[2021-09-16] MEDS: insulin regular, human U-100 3ml vial - multi-dose SQ SCH ×4 (02:31→21:05)
[2021-09-16] MEDS: mineral oil/petrolatum ophthal oint EACHEYE SCH ×4 (02:32→20:12)
[2021-09-16 02:51] LABS: BASOPHILS # (AUTO) 0.1 X10'3 (0-0.2); BASOPHILS % (AUTO) 0.5 % (0-1); EOSINOPHILS % (AUTO) 0.3 % (0-6); LYMPHOCYTES # (AUTO) 0.4 X10'3 (1.1-4.8); LYMPHOCYTES % (AUTO) 2.8 % (21-51); MEAN CORPUSCULAR HEMOGLOBIN 27.2 PG (27.0-31.0); MEAN CORPUSCULAR HGB CONC 32.2 g/dL (33.0-36.5); MEAN CORPUSCULAR VOLUME 84.6 FL (78-98); MEAN PLATELET VOLUME 8.4 FL (7.4-10.4); MONOCYTES # (AUTO) 0.8 X10'3 (0-0.9); MONOCYTES % (AUTO) 6.2 % (2-12); NEUTROPHILS # (AUTO) 12.3 X10'3 (1.8-7.7); NEUTROPHILS % (AUTO) 90.2 % (42-75); PLATELET COUNT 290 X10'3 (140-440); RED BLOOD COUNT 2.95 X10'6 (4.20-5.60); RED CELL DISTRIBUTION WIDTH 20.1 % (11.5-14.5); WHITE BLOOD COUNT 13.6 X10'3 (4.5-11.0)
[2021-09-16 03:09] LABS: ALANINE AMINOTRANSFERASE 33 U/L (12-78); ALBUMIN 2.9 G/DL (3.4-5.0); ALKALINE PHOSPHATASE 128 IU/L (46-116); ANION GAP 9 (8-16); ASPARTATE AMINO TRANSFERASE 18 U/L (10-37); BILIRUBIN,TOTAL 1.7 MG/DL (0.1-1.0); BLOOD UREA NITROGEN 39 MG/DL (7-18); BUN/CREATININE RATIO 25.8 (6.6-38.0); CHLORIDE 98 MMOL/L (99-107); CREATININE 1.51 MG/DL (0.40-0.90); GLUCOSE 235 MG/DL (70-104); MAGNESIUM 2.1 MG/DL (1.5-2.4); POTASSIUM 3.9 MMOL/L (3.5-5.1); SODIUM 134 MMOL/L (135-145); TOTAL PROTEIN 5.8 G/DL (6.4-8.2); eGFR 34 ML/MIN
[2021-09-16] MEDS: propofol 1000mg/100ml bottle 100 ML IV SCH (04:09)
[2021-09-16] MEDS: ipratropium/albuterol 3ml nebule NEB SCH ×6 (04:16→22:59)
[2021-09-16 04:25] LABS: TOTAL CELLS COUNTED 100
[2021-09-16 04:26] LABS: ANISOCYTOSIS 3+; PLATELET ESTIMATE NORMAL
[2021-09-16 04:27] LABS: POLYCHROMASIA FEW; STOMATOCYTES FEW; TEAR DROP CELLS FEW
[2021-09-16 05:01] LABS: ABG BASE EXCESS 1.2 mmol/L (-2.0-2.0); ABG HCO3 24.8 mmol/L (22.0-26.0); ABG OXYGEN SATURATION 94.3 % (94-97); ABG PCO2 (T) 35.9 mmHg (32.0-45.0); ABG PO2 (T) 72.5 mmHg (75.0-100.0); ALLEN'S TEST Modified; FCOHb 0.3 % (0.0-3.9); FMetHb 0.3 % (0.0-1.5); FO2Hb 93.7 % (94-97); PATIENT TEMPERATURE 37.3; TIDAL VOLUME 335 mL; TOTAL HEMOGLOBIN 8.9 G/dl (12.0-16.0)
[2021-09-16] MEDS: dexmedetomidin/NS 400mcg/100ml 100 ML IV SCH ×4 (05:45→20:23)
--- NOTE | 2021-09-16 06:30 | NUR ---
Patient in room ICU 2043. I have received report from Lulu ECHEVARRIA and had the opportunity to ask questions and assume patient care.
[2021-09-16 07:12] LABS: PHOSPHORUS 3.1 MG/DL (2.3-4.5)
[2021-09-16] MEDS: K and/or MAG REPLACEMENT MC SCH ×2 (07:31→20:14)
[2021-09-16] MEDS: allopurinol 100mg tablet NG SCH (07:35)
[2021-09-16] MEDS: heparin, porcine 5000 units/ml vial SQ SCH ×2 (07:35→20:12)
[2021-09-16] MEDS: lansoprazole 15mg solutab NG SCH (07:35)
[2021-09-16] MEDS: potassium Cl 20 mEq SR tablet NG SCH (07:35)
[2021-09-16] MEDS: NYSTATIN CREAM - 30GM TUBE TP SCH ×2 (07:36→20:13)
[2021-09-16] MEDS: docusate sodium 100mg/10ml UD cup NG SCH ×2 (07:36→20:00)
[2021-09-16] MEDS: acetaminophen 325mg/10.15ml oral unit dose solution NG PRN (11:00)
--- NOTE | 2021-09-16 15:20 | NUR ---
[facility] f/u assessment of PI. Pt was turned on her left side upon arrival in room. 2 person max to turn for assessemnt of her coccygeal PI. Skin to the wound bed is pink and w/o periwound redness. Replaced with new allevyn and provided chaz care and placed thin layer of calazime to chaz recal area moisture area. Addendum: 09/16/21 at 1525 by Autumn Gay RN Amended: Links added.
--- NOTE | 2021-09-16 17:08 | NUR ---
Patient often restless and shakes her head no. Does not follow commands but moves all extremities. On Precedex for anxiety. SR. BP stable. Pressure support weaned to 10 and FiO2 to 40%. Few episodes of sats dropping to high 80's when patient anxious. Zulma TF well. Minimal UO.
--- NOTE | 2021-09-16 18:03 | NUR ---
Problems reprioritized. Patient report given, questions answered & plan of care reviewed with Lulu ECHEVARRIA.
[2021-09-16] MEDS: polyethylene glycol 3350 17gm powd pack NG SCH (20:13)
[2021-09-16] MEDS: insulin glargine (Lantus) pen - multi-dose SQ SCH (21:08)
[2021-09-17] VITALS (23 sets, daily range): BP systolic 109–164; BP diastolic 39–68
[2021-09-17] MEDS: dexmedetomidin/NS 400mcg/100ml 100 ML IV SCH ×3 (00:47→09:46)
[2021-09-17] MEDS: insulin regular, human U-100 3ml vial - multi-dose SQ SCH ×4 (02:33→20:34)
[2021-09-17] MEDS: mineral oil/petrolatum ophthal oint EACHEYE SCH ×4 (02:34→19:58)
[2021-09-17 03:05] LABS: BASOPHILS % (AUTO) 0.4 % (0-1); EOSINOPHILS % (AUTO) 0.4 % (0-6); HEMATOCRIT 22.3 % (35.0-45.0); HEMOGLOBIN 7.3 g/dl (12.0-16.0); LYMPHOCYTES # (AUTO) 0.5 X10'3 (1.1-4.8); MEAN CORPUSCULAR HEMOGLOBIN 27.5 PG (27.0-31.0); MEAN CORPUSCULAR HGB CONC 32.6 g/dL (33.0-36.5); MEAN CORPUSCULAR VOLUME 84.3 FL (78-98); MONOCYTES # (AUTO) 0.9 X10'3 (0-0.9); NEUTROPHILS # (AUTO) 11.9 X10'3 (1.8-7.7); NEUTROPHILS % (AUTO) 88.2 % (42-75); PLATELET COUNT 242 X10'3 (140-440); RED BLOOD COUNT 2.65 X10'6 (4.20-5.60); RED CELL DISTRIBUTION WIDTH 20.1 % (11.5-14.5); WHITE BLOOD COUNT 13.5 X10'3 (4.5-11.0)
[2021-09-17] MEDS: ipratropium/albuterol 3ml nebule NEB SCH ×6 (03:16→22:48)
[2021-09-17 03:17] LABS: ALANINE AMINOTRANSFERASE 40 U/L (12-78); ALBUMIN 2.5 G/DL (3.4-5.0); ALBUMIN/GLOBULIN RATIO 0.8 (1.1-1.5); ALKALINE PHOSPHATASE 118 IU/L (46-116); ANION GAP 8 (8-16); ASPARTATE AMINO TRANSFERASE 22 U/L (10-37); BILIRUBIN,TOTAL 1.5 MG/DL (0.1-1.0); BLOOD UREA NITROGEN 50 MG/DL (7-18); BUN/CREATININE RATIO 25.5 (6.6-38.0); CALCIUM 8.5 MG/DL (8.5-10.1); CHLORIDE 99 MMOL/L (99-107); CREATININE 1.96 MG/DL (0.40-0.90); GLUCOSE 109 MG/DL (70-104); MAGNESIUM 1.9 MG/DL (1.5-2.4); POTASSIUM 4.2 MMOL/L (3.5-5.1); SODIUM 133 MMOL/L (135-145); TOTAL CARBON DIOXIDE 25.8 MMOL/L (24-32); TOTAL PROTEIN 5.5 G/DL (6.4-8.2); eGFR 25 ML/MIN
[2021-09-17 05:14] LABS: ABG BASE EXCESS -0.5 mmol/L (-2.0-2.0); ABG HCO3 22.7 mmol/L (22.0-26.0); ABG OXYGEN SATURATION 93.8 % (94-97); ABG PCO2 (T) 31.6 mmHg (32.0-45.0); ALLEN'S TEST Modified; FMetHb 0.3 % (0.0-1.5); FO2Hb 93.5 % (94-97); PATIENT TEMPERATURE 37.2; PEEP 5 cm H2O; RESPIRATORY RATE 20 b/min; TIDAL VOLUME 400 mL; TOTAL HEMOGLOBIN 8.1 G/dl (12.0-16.0)
[2021-09-17 06:00] LABS: ANISOCYTOSIS 3+; LARGE PLATELETS FEW; PLATELET ESTIMATE NORMAL
[2021-09-17] MEDS: allopurinol 100mg tablet NG SCH (07:46)
[2021-09-17] MEDS: heparin, porcine 5000 units/ml vial SQ SCH ×2 (07:47→19:58)
[2021-09-17] MEDS: potassium Cl 20 mEq SR tablet NG SCH (07:47)
[2021-09-17] MEDS: lansoprazole 15mg solutab NG SCH (07:48)
[2021-09-17] MEDS: NYSTATIN CREAM - 30GM TUBE TP SCH ×2 (07:48→19:58)
[2021-09-17] MEDS: docusate sodium 100mg/10ml UD cup NG SCH ×2 (07:48→19:58)
[2021-09-17] MEDS ORDERED: normal saline 1000ml 250 ML IV PRN (08:00)
[2021-09-17] MEDS ORDERED: EPOETIN ALFA-EPBX 20,000 UNIT/ML 1 ML MDV IV ONE (08:00)
[2021-09-17] MEDS: K and/or MAG REPLACEMENT MC SCH ×2 (08:00→19:59)
[2021-09-17] MEDS ORDERED: heparin 1,000unit/ml 10ml vial 10 ML IV ONE (08:00)
[2021-09-17] MEDS ORDERED: heparin 1,000 units/ml 10ml inj HE ONE ×2 (08:05)
--- NOTE | 2021-09-17 10:02 | NUR ---
Reassessment: Pt remains intubated and tolerating TF at goal rate with GRV WNL. Noted Propofol has been weaned and TF goal rate was advanced back to 70 mL/hr per RD recommendations. Pt documented with 350 mL stool output so far this morning. No changes to nutrition recommendations at this time. Will continue to follow. Recommendations: 1. Continuous TF via NGT using Vital AF with 70 mL/hr goal to provide 1680 mL total volume/day, 2016 kcal, 126 g protein, and 1326 mL water 2. Monitor trends in Propofol rate and need to adjust TF; currently off 3. Additional 200 mL water flush Q4H per MD on HD 4. PALB q Sunday/ 5. Daily scaled weights 6. Routine bowel care Addendum: 09/17/21 at [address] Amended: Links added.
[2021-09-17] MEDS: propofol 1000mg/100ml bottle 100 ML IV SCH (16:20)
[2021-09-17] MEDS: polyethylene glycol 3350 17gm powd pack NG SCH (19:58)
[2021-09-17] MEDS: insulin glargine (Lantus) pen - multi-dose SQ SCH (20:35)
[2021-09-18] VITALS (24 sets, daily range): BP systolic 111–185; BP diastolic 40–74
[2021-09-18] MEDS: dexmedetomidin/NS 400mcg/100ml 100 ML IV SCH ×4 (00:14→23:49)
[2021-09-18] MEDS: mineral oil/petrolatum ophthal oint EACHEYE SCH ×4 (01:35→20:00)
--- NOTE | 2021-09-18 02:23 | NUR ---
77 yo female, admitted 08/18/2021, day 30 of hospitalization, full code, allergies to BEE venom and ASA. Bilateral soft wrist restraints. Orders and documentation in accordance with facility policies and procedures. Pt with multiple admissions for increased SOB and respiratory difficulty. This admission, chest x-ray shows left lung was completely karen out BNP was 3300. Consult to pulmonary and IR for Chest tube placement. 08/20/2021 pt to ICU for intubation and bronched. 09/09/2021 pt trached. Currently pt is afebrile, mildly sedated on Precedex at .6 mcgs. Does not follow commands. HR 97 RS, 124/48. +3 generalized edema, weak pulses. IVF infusing via ARLEY TL PICC line, all ports f/p, dressing CDI. Pt trached on 09/09/2021, Trach #8, Vent PRVC, rate 18, TV 400, FIO2 40%, PEEP 5. Breath sounds, Coarse, diminished, equal symmetrical, non labored, tolerating vent settings well. Suction PRN wyman secretions. Hypoactive bowel sounds, soft non tender, round, NGT left nare infusing order for Vital AF (currently infusing Nepro due to no Vital AF). Nepro infusing at 70 mls hr. residual 200 ml's. Rectal tube draining brown stool. Glucose checks Q 6 hours. at 2000 103 with notable coverage. 0200 glucose 91 no coverage given. Bladder non distended, Goldman draining cloudy murky urine 0-15 ml's hour. noted genital edema with notable excoriation. Dialysis EOD, dialysis 09/17/2021 removed 3500. Dialysis access right chest wall. Excoriation to genital and groin area. Pt remains safe, continue to monitor. Addendum: 09/18/21 at 0257 by Dion Arthur RN Pt will have periods of AF rate of 120 then coverts back to SR.
[2021-09-18 02:49] LABS: BASOPHILS # (AUTO) 0.1 X10'3 (0-0.2); BASOPHILS % (AUTO) 0.6 % (0-1); EOSINOPHILS % (AUTO) 0.2 % (0-6); LYMPHOCYTES # (AUTO) 0.8 X10'3 (1.1-4.8); LYMPHOCYTES % (AUTO) 7.6 % (21-51); MEAN CORPUSCULAR HEMOGLOBIN 27.3 PG (27.0-31.0); MEAN CORPUSCULAR HGB CONC 32.3 g/dL (33.0-36.5); MEAN CORPUSCULAR VOLUME 84.3 FL (78-98); MEAN PLATELET VOLUME 7.8 FL (7.4-10.4); MONOCYTES # (AUTO) 0.7 X10'3 (0-0.9); MONOCYTES % (AUTO) 6.5 % (2-12); NEUTROPHILS # (AUTO) 9.2 X10'3 (1.8-7.7); NEUTROPHILS % (AUTO) 85.1 % (42-75); PLATELET COUNT 213 X10'3 (140-440); RED BLOOD COUNT 2.57 X10'6 (4.20-5.60); RED CELL DISTRIBUTION WIDTH 20.1 % (11.5-14.5); WHITE BLOOD COUNT 10.8 X10'3 (4.5-11.0)
[2021-09-18 03:08] LABS: ALANINE AMINOTRANSFERASE 40 U/L (12-78); ALBUMIN 2.4 G/DL (3.4-5.0); ALBUMIN/GLOBULIN RATIO 0.8 (1.1-1.5); ALKALINE PHOSPHATASE 120 IU/L (46-116); ANION GAP 10 (8-16); ASPARTATE AMINO TRANSFERASE 19 U/L (10-37); BILIRUBIN,TOTAL 1.2 MG/DL (0.1-1.0); BLOOD UREA NITROGEN 34 MG/DL (7-18); BUN/CREATININE RATIO 24.5 (6.6-38.0); CALCIUM 8.2 MG/DL (8.5-10.1); CHLORIDE 99 MMOL/L (99-107); CREATININE 1.39 MG/DL (0.40-0.90); GLUCOSE 91 MG/DL (70-104); MAGNESIUM 1.9 MG/DL (1.5-2.4); POTASSIUM 3.7 MMOL/L (3.5-5.1); SODIUM 136 MMOL/L (135-145); TOTAL CARBON DIOXIDE 26.9 MMOL/L (24-32); TOTAL PROTEIN 5.3 G/DL (6.4-8.2); eGFR 37 ML/MIN
[2021-09-18] MEDS ORDERED: metoprolol tartrate 1mg/ml inj IV ONE (03:10)
[2021-09-18 03:32] LABS: HEMATOCRIT 21.6 % (35.0-45.0)
[2021-09-18] MEDS: ipratropium/albuterol 3ml nebule NEB SCH ×6 (03:41→23:21)
[2021-09-18 04:30] LABS: ABG BASE EXCESS -0.1 mmol/L (-2.0-2.0); ABG HCO3 23.2 mmol/L (22.0-26.0); ABG OXYGEN SATURATION 93.8 % (94-97); ABG PCO2 (T) 32.5 mmHg (32.0-45.0); ABG PO2 (T) 71.1 mmHg (75.0-100.0); ALLEN'S TEST Modified; FMetHb 0.6 % (0.0-1.5); FO2Hb 93.2 % (94-97); PATIENT TEMPERATURE 37.9; PEEP 5 cm H2O; RESPIRATORY RATE 18 b/min; TIDAL VOLUME 400 mL; TOTAL HEMOGLOBIN 6.2 G/dl (12.0-16.0)
[2021-09-18] MEDS: K and/or MAG REPLACEMENT MC SCH ×2 (08:00→20:00)
[2021-09-18] MEDS: allopurinol 100mg tablet NG SCH (08:57)
[2021-09-18] MEDS: docusate sodium 100mg/10ml UD cup NG SCH ×2 (08:57→20:00)
[2021-09-18] MEDS: potassium Cl 20 mEq SR tablet NG SCH (08:57)
[2021-09-18] MEDS: NYSTATIN CREAM - 30GM TUBE TP SCH ×2 (08:58→20:00)
[2021-09-18] MEDS: heparin, porcine 5000 units/ml vial SQ SCH ×2 (08:58→21:05)
[2021-09-18] MEDS: lansoprazole 15mg solutab NG SCH (09:05)
[2021-09-18] MEDS: insulin regular, human U-100 3ml vial - multi-dose SQ SCH ×3 (09:19→21:18)
[2021-09-18] MEDS: polyethylene glycol 3350 17gm powd pack NG SCH (21:05)
[2021-09-18] MEDS: insulin glargine (Lantus) pen - multi-dose SQ SCH (21:19)
[2021-09-19] VITALS (23 sets, daily range): BP systolic 102–165; BP diastolic 42–79
[2021-09-19] MEDS: mineral oil/petrolatum ophthal oint EACHEYE SCH ×4 (01:04→21:05)
[2021-09-19] MEDS: insulin regular, human U-100 3ml vial - multi-dose SQ SCH ×4 (01:16→21:14)
[2021-09-19 02:21] LABS: BASOPHILS # (AUTO) 0.1 X10'3 (0-0.2); BASOPHILS % (AUTO) 0.4 % (0-1); EOSINOPHILS % (AUTO) 0.3 % (0-6); HEMATOCRIT 24.1 % (35.0-45.0); HEMOGLOBIN 7.6 g/dl (12.0-16.0); LYMPHOCYTES # (AUTO) 0.5 X10'3 (1.1-4.8); LYMPHOCYTES % (AUTO) 3.5 % (21-51); MEAN CORPUSCULAR HEMOGLOBIN 26.9 PG (27.0-31.0); MEAN CORPUSCULAR HGB CONC 31.7 g/dL (33.0-36.5); MEAN CORPUSCULAR VOLUME 84.9 FL (78-98); MEAN PLATELET VOLUME 7.6 FL (7.4-10.4); MONOCYTES # (AUTO) 0.6 X10'3 (0-0.9); MONOCYTES % (AUTO) 4.5 % (2-12); NEUTROPHILS % (AUTO) 91.3 % (42-75); PLATELET COUNT 217 X10'3 (140-440); RED BLOOD COUNT 2.84 X10'6 (4.20-5.60); RED CELL DISTRIBUTION WIDTH 20.4 % (11.5-14.5); WHITE BLOOD COUNT 13.1 X10'3 (4.5-11.0)
[2021-09-19] MEDS: ipratropium/albuterol 3ml nebule NEB SCH ×6 (02:42→23:01)
[2021-09-19 02:49] LABS: ALANINE AMINOTRANSFERASE 48 U/L (12-78); ALBUMIN 2.4 G/DL (3.4-5.0); ALBUMIN/GLOBULIN RATIO 0.8 (1.1-1.5); ALKALINE PHOSPHATASE 146 IU/L (46-116); ASPARTATE AMINO TRANSFERASE 23 U/L (10-37); BILIRUBIN,TOTAL 1.2 MG/DL (0.1-1.0); BLOOD UREA NITROGEN 46 MG/DL (7-18); BUN/CREATININE RATIO 24.1 (6.6-38.0); CALCIUM 8.6 MG/DL (8.5-10.1); CREATININE 1.91 MG/DL (0.40-0.90); GLUCOSE 147 MG/DL (70-104); MAGNESIUM 1.9 MG/DL (1.5-2.4); TOTAL PROTEIN 5.5 G/DL (6.4-8.2); eGFR 26 ML/MIN
[2021-09-19 03:27] LABS: ANION GAP 11 (8-16); CHLORIDE 100 MMOL/L (99-107); POTASSIUM 3.7 MMOL/L (3.5-5.1); SODIUM 136 MMOL/L (135-145); TOTAL CARBON DIOXIDE 25.5 MMOL/L (24-32)
[2021-09-19 04:11] LABS: ANISOCYTOSIS 3+; PLATELET ESTIMATE NORMAL; POLYCHROMASIA FEW; TOTAL CELLS COUNTED 100
[2021-09-19 04:13] LABS: STOMATOCYTES FEW; TEAR DROP CELLS FEW
[2021-09-19 04:43] LABS: ABG BASE EXCESS 1.3 mmol/L (-2.0-2.0); ABG HCO3 24.5 mmol/L (22.0-26.0); ABG OXYGEN SATURATION 90.1 % (94-97); ABG PCO2 (T) 34.1 mmHg (32.0-45.0); ABG PO2 (T) 60.1 mmHg (75.0-100.0); ALLEN'S TEST Modified; FCOHb 0.4 % (0.0-3.9); FMetHb 0.3 % (0.0-1.5); FO2Hb 89.5 % (94-97); PATIENT TEMPERATURE 37.7; TOTAL HEMOGLOBIN 8.7 G/dl (12.0-16.0)
[2021-09-19] MEDS ORDERED: amiodarone 150mg/dext, iso-os 100 ML IV ONE ×2 (05:00→05:06)
[2021-09-19] MEDS: amiodarone/D5 360MG/200ML BAG 200 ML IV SCH ×4 (05:20→22:07)
[2021-09-19] MEDS: dexmedetomidin/NS 400mcg/100ml 100 ML IV SCH ×3 (05:23→19:54)
[2021-09-19] MEDS ORDERED: famotidine 20MG/2.5ML oral suspension PO SCH (08:00)
[2021-09-19] MEDS: K and/or MAG REPLACEMENT MC SCH (08:00)
[2021-09-19] MEDS: NYSTATIN CREAM - 30GM TUBE TP SCH ×2 (08:00→21:05)
[2021-09-19] MEDS: heparin, porcine 5000 units/ml vial SQ SCH ×2 (08:00→21:06)
[2021-09-19] MEDS: potassium Cl 20 mEq SR tablet NG SCH (08:00)
[2021-09-19] MEDS: docusate sodium 100mg/10ml UD cup NG SCH ×2 (08:53→21:05)
[2021-09-19] MEDS ORDERED: famotidine 20mg tablet PO SCH (08:54)
[2021-09-19] MEDS: acetaminophen 325mg/10.15ml oral unit dose solution NG PRN (09:00)
[2021-09-19] MEDS: lansoprazole 15mg solutab NG SCH (09:01)
[2021-09-19] MEDS: allopurinol 100mg tablet NG SCH (09:01)
--- NOTE | 2021-09-19 18:10 | NUR ---
Patient in room ICU 2043. I have received report from Nina ECHEVARRIA and had the opportunity to ask questions and assume patient care.
[2021-09-19] MEDS: polyethylene glycol 3350 17gm powd pack NG SCH (21:05)
[2021-09-19] MEDS: insulin glargine (Lantus) pen - multi-dose SQ SCH (21:15)
[2021-09-20] VITALS (24 sets, daily range): BP systolic 110–191; BP diastolic 45–98
[2021-09-20] MEDS: dexmedetomidin/NS 400mcg/100ml 100 ML IV SCH (02:15)
[2021-09-20] MEDS: mineral oil/petrolatum ophthal oint EACHEYE SCH ×4 (02:20→19:26)
[2021-09-20] MEDS: ipratropium/albuterol 3ml nebule NEB SCH ×7 (02:34→23:15)
[2021-09-20] MEDS: insulin regular, human U-100 3ml vial - multi-dose SQ SCH ×4 (02:48→19:55)
[2021-09-20 03:43] LABS: BASOPHILS # (AUTO) 0.1 X10'3 (0-0.2); BASOPHILS % (AUTO) 0.9 % (0-1); EOSINOPHILS # (AUTO) 0.1 X10'3 (0-0.9); EOSINOPHILS % (AUTO) 0.9 % (0-6); HEMATOCRIT 22.6 % (35.0-45.0); HEMOGLOBIN 7.3 g/dl (12.0-16.0); LYMPHOCYTES # (AUTO) 0.6 X10'3 (1.1-4.8); LYMPHOCYTES % (AUTO) 6.6 % (21-51); MEAN CORPUSCULAR HEMOGLOBIN 26.9 PG (27.0-31.0); MEAN CORPUSCULAR HGB CONC 32.3 g/dL (33.0-36.5); MEAN CORPUSCULAR VOLUME 83.5 FL (78-98); MEAN PLATELET VOLUME 7.6 FL (7.4-10.4); MONOCYTES # (AUTO) 0.5 X10'3 (0-0.9); MONOCYTES % (AUTO) 5.7 % (2-12); NEUTROPHILS # (AUTO) 7.4 X10'3 (1.8-7.7); NEUTROPHILS % (AUTO) 85.9 % (42-75); PLATELET COUNT 176 X10'3 (140-440); RED BLOOD COUNT 2.71 X10'6 (4.20-5.60); RED CELL DISTRIBUTION WIDTH 20.7 % (11.5-14.5); WHITE BLOOD COUNT 8.7 X10'3 (4.5-11.0)
[2021-09-20 03:55] LABS: ALANINE AMINOTRANSFERASE 44 U/L (12-78); ALBUMIN 2.2 G/DL (3.4-5.0); ALBUMIN/GLOBULIN RATIO 0.7 (1.1-1.5); ALKALINE PHOSPHATASE 143 IU/L (46-116); ANION GAP 11 (8-16); ASPARTATE AMINO TRANSFERASE 25 U/L (10-37); BILIRUBIN,TOTAL 1.1 MG/DL (0.1-1.0); BLOOD UREA NITROGEN 57 MG/DL (7-18); BUN/CREATININE RATIO 25.9 (6.6-38.0); CALCIUM 8.3 MG/DL (8.5-10.1); CHLORIDE 98 MMOL/L (99-107); GLUCOSE 110 MG/DL (70-104); POTASSIUM 4.1 MMOL/L (3.5-5.1); SODIUM 133 MMOL/L (135-145); TOTAL CARBON DIOXIDE 23.9 MMOL/L (24-32); TOTAL PROTEIN 5.3 G/DL (6.4-8.2); eGFR 22 ML/MIN
[2021-09-20 04:56] LABS: ANISOCYTOSIS 3+; PLATELET ESTIMATE NORMAL
[2021-09-20] MEDS: amiodarone/D5 360MG/200ML BAG 200 ML IV SCH ×4 (04:56→22:17)
[2021-09-20 04:57] LABS: POLYCHROMASIA FEW; ROULEAUX 1+
[2021-09-20 04:58] LABS: TEAR DROP CELLS FEW
[2021-09-20 05:27] LABS: ABG BASE EXCESS -1.9 mmol/L (-2.0-2.0); ABG HCO3 20.8 mmol/L (22.0-26.0); ABG OXYGEN SATURATION 94.7 % (94-97); ABG PCO2 (T) 28.2 mmHg (32.0-45.0); FCOHb 0.1 % (0.0-3.9); FMetHb 0.3 % (0.0-1.5); FO2Hb 94.3 % (94-97); PATIENT TEMPERATURE 37.4; PEEP 5 cm H2O; RESPIRATORY RATE 18 b/min; TIDAL VOLUME 400 mL; TOTAL HEMOGLOBIN 8.4 G/dl (12.0-16.0)
--- NOTE | 2021-09-20 06:38 | NUR ---
Problems reprioritized. Patient report given, questions answered & plan of care reviewed with Melissa ECHEVARRIA.
[2021-09-20] MEDS: docusate sodium 100mg/10ml UD cup NG SCH ×2 (08:00→19:25)
[2021-09-20] MEDS: NYSTATIN CREAM - 30GM TUBE TP SCH ×2 (08:00→19:26)
[2021-09-20] MEDS: allopurinol 100mg tablet NG SCH (08:19)
[2021-09-20] MEDS: heparin, porcine 5000 units/ml vial SQ SCH ×2 (08:19→19:26)
[2021-09-20] MEDS: potassium Cl 20 mEq SR tablet NG SCH (08:19)
[2021-09-20 10:04] LABS: HBSAG SCREEN Negative (Negative)
[2021-09-20] MEDS: lansoprazole 15mg solutab NG SCH (10:32)
[2021-09-20] MEDS: QUEtiapine 25mg tablet NG SCH ×2 (10:32→19:26)
--- NOTE | 2021-09-20 11:05 | NUR ---
F/u 09/20: Pt remains intubated tolerating TF at goal GRV 300ml this AM down from 420-450ml last night per EMR. Rectal tube -500ml 09/17-09/18 receiving routine colace and miralax HS pending volume output today per EMR. Will continue to monitor for TF tolerance and adjustment needs. Recommendations: 1. Continuous TF via NGT using Vital AF with 70 mL/hr goal to provide 1680 mL total volume/day, 2016 kcal, 126 g protein, and 1326 mL water 2. Additional 200 mL water flush Q4H per MD on HD 3. PALB q Sunday/; Daily scaled weights 4. routine bowel care Addendum: 09/20/21 at [address] Amended: Links added.
[2021-09-20] MEDS ORDERED: heparin 1,000 units/ml 10ml inj HE ONE ×2 (11:50)
[2021-09-20] MEDS ORDERED: heparin 1,000unit/ml 10ml vial 10 ML IV ONE (11:50)
[2021-09-20] MEDS ORDERED: EPOETIN ALFA-EPBX 20,000 UNIT/ML 1 ML MDV IV ONE (11:50)
[2021-09-20] MEDS ORDERED: normal saline 1000ml 250 ML IV PRN (11:50)
[2021-09-20] MEDS: insulin glargine (Lantus) pen - multi-dose SQ SCH (19:56)
[2021-09-20] MEDS: polyethylene glycol 3350 17gm powd pack NG SCH (19:56)
[2021-09-21] VITALS (24 sets, daily range): BP systolic 124–168; BP diastolic 45–97
[2021-09-21] MEDS: mineral oil/petrolatum ophthal oint EACHEYE SCH ×4 (02:05→19:53)
[2021-09-21] MEDS: insulin regular, human U-100 3ml vial - multi-dose SQ SCH ×4 (02:06→20:10)
[2021-09-21] MEDS: ipratropium/albuterol 3ml nebule NEB SCH ×6 (02:19→23:12)
[2021-09-21 02:43] LABS: BASOPHILS # (AUTO) 0.1 X10'3 (0-0.2); BASOPHILS % (AUTO) 0.6 % (0-1); EOSINOPHILS # (AUTO) 0.1 X10'3 (0-0.9); HEMATOCRIT 23.9 % (35.0-45.0); HEMOGLOBIN 7.6 g/dl (12.0-16.0); LYMPHOCYTES # (AUTO) 0.8 X10'3 (1.1-4.8); LYMPHOCYTES % (AUTO) 8.5 % (21-51); MEAN CORPUSCULAR HEMOGLOBIN 26.5 PG (27.0-31.0); MEAN CORPUSCULAR HGB CONC 31.8 g/dL (33.0-36.5); MEAN CORPUSCULAR VOLUME 83.2 FL (78-98); MEAN PLATELET VOLUME 7.9 FL (7.4-10.4); MONOCYTES # (AUTO) 0.7 X10'3 (0-0.9); MONOCYTES % (AUTO) 8.3 % (2-12); NEUTROPHILS # (AUTO) 7.2 X10'3 (1.8-7.7); NEUTROPHILS % (AUTO) 81.6 % (42-75); PLATELET COUNT 174 X10'3 (140-440); RED BLOOD COUNT 2.87 X10'6 (4.20-5.60); RED CELL DISTRIBUTION WIDTH 20.1 % (11.5-14.5); WHITE BLOOD COUNT 8.8 X10'3 (4.5-11.0)
[2021-09-21 03:10] LABS: ALANINE AMINOTRANSFERASE 46 U/L (12-78); ALBUMIN 2.1 G/DL (3.4-5.0); ALBUMIN/GLOBULIN RATIO 0.6 (1.1-1.5); ALKALINE PHOSPHATASE 162 IU/L (46-116); ANION GAP 10 (8-16); ASPARTATE AMINO TRANSFERASE 26 U/L (10-37); BILIRUBIN,TOTAL 0.9 MG/DL (0.1-1.0); BLOOD UREA NITROGEN 34 MG/DL (7-18); BUN/CREATININE RATIO 23.1 (6.6-38.0); CALCIUM 8.1 MG/DL (8.5-10.1); CHLORIDE 100 MMOL/L (99-107); CREATININE 1.47 MG/DL (0.40-0.90); GLUCOSE 116 MG/DL (70-104); POTASSIUM 3.9 MMOL/L (3.5-5.1); SODIUM 136 MMOL/L (135-145); TOTAL CARBON DIOXIDE 26.3 MMOL/L (24-32); TOTAL PROTEIN 5.4 G/DL (6.4-8.2); TRIGLYCERIDES 172 MG/DL (20-135); eGFR 35 ML/MIN
[2021-09-21 04:24] LABS: ABG BASE EXCESS -0.4 mmol/L (-2.0-2.0); ABG HCO3 23.1 mmol/L (22.0-26.0); ABG OXYGEN SATURATION 91.7 % (94-97); ABG PO2 (T) 61.4 mmHg (75.0-100.0); ALLEN'S TEST Modified; FCOHb 0.7 % (0.0-3.9); FMetHb 0.1 % (0.0-1.5); PATIENT TEMPERATURE 37.1; TOTAL HEMOGLOBIN 8.3 G/dl (12.0-16.0)
[2021-09-21] MEDS: amiodarone/D5 360MG/200ML BAG 200 ML IV SCH ×4 (05:12→22:39)
--- NOTE | 2021-09-21 06:20 | NUR ---
Problems reprioritized. Patient report given, questions answered & plan of care reviewed with Yaz ECHEVARRIA.
[2021-09-21] MEDS: dexmedetomidin/NS 400mcg/100ml 100 ML IV SCH (07:49)
[2021-09-21] MEDS: allopurinol 100mg tablet NG SCH (08:47)
[2021-09-21] MEDS: heparin, porcine 5000 units/ml vial SQ SCH ×2 (08:47→19:52)
[2021-09-21] MEDS: lansoprazole 15mg solutab NG SCH (08:47)
[2021-09-21] MEDS: potassium Cl 20 mEq SR tablet NG SCH (08:48)
[2021-09-21] MEDS: QUEtiapine 25mg tablet NG SCH ×2 (08:48→19:52)
[2021-09-21] MEDS: docusate sodium 100mg/10ml UD cup NG SCH ×2 (08:48→19:52)
[2021-09-21] MEDS: NYSTATIN CREAM - 30GM TUBE TP SCH ×2 (08:49→19:52)
--- NOTE | 2021-09-21 18:23 | NUR ---
Patient in room ICU 2043. I have received report from Yaz ECHEVARRIA and had the opportunity to ask questions and assume patient care.
[2021-09-21] MEDS: polyethylene glycol 3350 17gm powd pack NG SCH (20:04)
[2021-09-21] MEDS: insulin glargine (Lantus) pen - multi-dose SQ SCH (20:11)
[2021-09-22] VITALS (24 sets, daily range): BP systolic 133–175; BP diastolic 47–84
[2021-09-22] MEDS: mineral oil/petrolatum ophthal oint EACHEYE SCH ×4 (02:23→19:39)
[2021-09-22] MEDS: insulin regular, human U-100 3ml vial - multi-dose SQ SCH ×4 (02:25→21:50)
[2021-09-22 02:44] LABS: BASOPHILS % (AUTO) 0.5 % (0-1); EOSINOPHILS # (AUTO) 0.1 X10'3 (0-0.9); EOSINOPHILS % (AUTO) 1.7 % (0-6); HEMOGLOBIN 7.4 g/dl (12.0-16.0); LYMPHOCYTES % (AUTO) 12.1 % (21-51); MEAN CORPUSCULAR HEMOGLOBIN 26.5 PG (27.0-31.0); MEAN CORPUSCULAR HGB CONC 32.3 g/dL (33.0-36.5); MEAN PLATELET VOLUME 7.8 FL (7.4-10.4); MONOCYTES # (AUTO) 0.5 X10'3 (0-0.9); MONOCYTES % (AUTO) 6.7 % (2-12); NEUTROPHILS # (AUTO) 6.5 X10'3 (1.8-7.7); PLATELET COUNT 195 X10'3 (140-440); RED BLOOD COUNT 2.81 X10'6 (4.20-5.60); RED CELL DISTRIBUTION WIDTH 20.2 % (11.5-14.5); WHITE BLOOD COUNT 8.2 X10'3 (4.5-11.0)
[2021-09-22 02:59] LABS: ALANINE AMINOTRANSFERASE 40 U/L (12-78); ALBUMIN 2.1 G/DL (3.4-5.0); ALBUMIN/GLOBULIN RATIO 0.7 (1.1-1.5); ALKALINE PHOSPHATASE 158 IU/L (46-116); ANION GAP 14 (8-16); ASPARTATE AMINO TRANSFERASE 20 U/L (10-37); BILIRUBIN,TOTAL 0.7 MG/DL (0.1-1.0); BLOOD UREA NITROGEN 47 MG/DL (7-18); BUN/CREATININE RATIO 25.1 (6.6-38.0); CALCIUM 8.1 MG/DL (8.5-10.1); CHLORIDE 106 MMOL/L (99-107); CREATININE 1.87 MG/DL (0.40-0.90); GLUCOSE 93 MG/DL (70-104); SODIUM 147 MMOL/L (135-145); TOTAL CARBON DIOXIDE 27.3 MMOL/L (24-32); TOTAL PROTEIN 5.1 G/DL (6.4-8.2); TRIGLYCERIDES 195 MG/DL (20-135); eGFR 26 ML/MIN
[2021-09-22] MEDS: ipratropium/albuterol 3ml nebule NEB SCH ×6 (03:24→23:25)
[2021-09-22 04:48] LABS: ABG BASE EXCESS 4.6 mmol/L (-2.0-2.0); ABG HCO3 28.7 mmol/L (22.0-26.0); ABG OXYGEN SATURATION 90.4 % (94-97); ABG PCO2 (T) 40.2 mmHg (32.0-45.0); ABG PO2 (T) 58.2 mmHg (75.0-100.0); ALLEN'S TEST POSITIVE; FCOHb 0.3 % (0.0-3.9); FMetHb 0.5 % (0.0-1.5); FO2Hb 89.7 % (94-97); PEEP 5 cm H2O; TOTAL HEMOGLOBIN 8.3 G/dl (12.0-16.0)
[2021-09-22] MEDS: amiodarone/D5 360MG/200ML BAG 200 ML IV SCH (05:28)
--- NOTE | 2021-09-22 06:15 | NUR ---
Problems reprioritized. Patient report given, questions answered & plan of care reviewed with Dipti ECHEVARRIA.
--- NOTE | 2021-09-22 06:22 | NUR ---
Patient in room ICU 2043. I have received report from Jennifer ECHEVARRIA and had the opportunity to ask questions and assume patient care.
[2021-09-22 06:50] LABS: MAGNESIUM 1.7 MG/DL (1.5-2.4); PHOSPHORUS 2.2 MG/DL (2.3-4.5)
[2021-09-22] MEDS: lansoprazole 15mg solutab NG SCH (07:27)
[2021-09-22] MEDS: potassium Cl 20 mEq SR tablet NG SCH (07:27)
[2021-09-22] MEDS: QUEtiapine 25mg tablet NG SCH ×2 (07:28→19:38)
[2021-09-22] MEDS: docusate sodium 100mg/10ml UD cup NG SCH ×2 (07:28→19:38)
[2021-09-22] MEDS: allopurinol 100mg tablet NG SCH (07:28)
[2021-09-22] MEDS: heparin, porcine 5000 units/ml vial SQ SCH ×2 (07:33→12:20)
[2021-09-22] MEDS ORDERED: heparin 1,000 units/ml 10ml inj HE ONE ×2 (08:00)
[2021-09-22] MEDS ORDERED: normal saline 1000ml 250 ML IV PRN (08:00)
[2021-09-22] MEDS ORDERED: heparin 1,000unit/ml 10ml vial 10 ML IV ONE (08:00)
[2021-09-22] MEDS ORDERED: EPOETIN ALFA-EPBX 20,000 UNIT/ML 1 ML MDV IV ONE (08:00)
[2021-09-22] MEDS: NYSTATIN CREAM - 30GM TUBE TP SCH ×2 (09:39→19:38)
[2021-09-22] MEDS: amiodarone 200mg tablet PO SCH ×2 (10:39→19:38)
--- NOTE | 2021-09-22 17:17 | NUR ---
Patient restless at times. Does not follow commands. Very resistive to oral care. Attempted to bite nurse's fingers when NG tube retaped. Patient frequently changing between sinus rhythm and atrial fib. BP stable. Zulma dialysis well with 3L removed. Minimal UO.
--- NOTE | 2021-09-22 17:26 | NUR ---
1500 SVN treatment triaged
--- NOTE | 2021-09-22 18:07 | NUR ---
Problems reprioritized. Patient report given, questions answered & plan of care reviewed with Brea ECHEVARRIA.
[2021-09-22] MEDS: polyethylene glycol 3350 17gm powd pack NG SCH (19:38)
[2021-09-22] MEDS: insulin glargine (Lantus) pen - multi-dose SQ SCH (21:51)
[2021-09-22] MEDS ORDERED: diatr meglu/diatrizoate 30ml oral sol.-(3 dose) bottle NG ONE (22:00)
[2021-09-23] VITALS (30 sets, daily range): BP systolic 135–180; BP diastolic 54–78
[2021-09-23 02:36] LABS: BASOPHILS % (AUTO) 0.3 % (0-1); EOSINOPHILS # (AUTO) 0.1 X10'3 (0-0.9); EOSINOPHILS % (AUTO) 1.3 % (0-6); HEMATOCRIT 26.1 % (35.0-45.0); HEMOGLOBIN 8.2 g/dl (12.0-16.0); LYMPHOCYTES # (AUTO) 0.8 X10'3 (1.1-4.8); LYMPHOCYTES % (AUTO) 8.9 % (21-51); MEAN CORPUSCULAR HEMOGLOBIN 26.1 PG (27.0-31.0); MEAN CORPUSCULAR HGB CONC 31.5 g/dL (33.0-36.5); MEAN CORPUSCULAR VOLUME 82.8 FL (78-98); MONOCYTES # (AUTO) 0.7 X10'3 (0-0.9); MONOCYTES % (AUTO) 7.7 % (2-12); NEUTROPHILS # (AUTO) 6.9 X10'3 (1.8-7.7); NEUTROPHILS % (AUTO) 81.8 % (42-75); PLATELET COUNT 275 X10'3 (140-440); RED BLOOD COUNT 3.15 X10'6 (4.20-5.60); RED CELL DISTRIBUTION WIDTH 20.9 % (11.5-14.5); WHITE BLOOD COUNT 8.5 X10'3 (4.5-11.0)
[2021-09-23] MEDS: mineral oil/petrolatum ophthal oint EACHEYE SCH ×4 (02:37→20:19)
[2021-09-23] MEDS: insulin regular, human U-100 3ml vial - multi-dose SQ SCH (02:41)
[2021-09-23 02:49] LABS: ALANINE AMINOTRANSFERASE 40 U/L (12-78); ALBUMIN 2.3 G/DL (3.4-5.0); ALBUMIN/GLOBULIN RATIO 0.7 (1.1-1.5); ALKALINE PHOSPHATASE 189 IU/L (46-116); ANION GAP 10 (8-16); ASPARTATE AMINO TRANSFERASE 20 U/L (10-37); BILIRUBIN,TOTAL 0.8 MG/DL (0.1-1.0); BLOOD UREA NITROGEN 27 MG/DL (7-18); BUN/CREATININE RATIO 20.3 (6.6-38.0); CALCIUM 8.4 MG/DL (8.5-10.1); CHLORIDE 97 MMOL/L (99-107); CREATININE 1.33 MG/DL (0.40-0.90); GLUCOSE 173 MG/DL (70-104); MAGNESIUM 1.8 MG/DL (1.5-2.4); PHOSPHORUS 1.7 MG/DL (2.3-4.5); POTASSIUM 4.5 MMOL/L (3.5-5.1); SODIUM 134 MMOL/L (135-145); TOTAL CARBON DIOXIDE 27.2 MMOL/L (24-32); TOTAL PROTEIN 5.7 G/DL (6.4-8.2); eGFR 39 ML/MIN
[2021-09-23 03:50] LABS: ANISOCYTOSIS 3+; BANDS% (MANUAL) 13.3 % (0-10); EOSINOPHILS % (MANUAL) 0.7 % (0-6); LYMPHOCYTES % (MANUAL) 5.3 % (21-51); METAMYLEOCYTES% (MANUAL) 1.3 % (0-0); NEUTROPHILS % (MANUAL) 75.3 % (42-75); PLATELET ESTIMATE NORMAL; TOTAL CELLS COUNTED 150
[2021-09-23 03:51] LABS: HYPOCHROMASIA 1+; POLYCHROMASIA 1+; STOMATOCYTES 2+
[2021-09-23 03:52] LABS: GIANT PLATELET FEW; LARGE PLATELETS FEW
[2021-09-23] MEDS: ipratropium/albuterol 3ml nebule NEB SCH ×6 (04:09→23:36)
[2021-09-23] MEDS: heparin, porcine 5000 units/ml vial SQ SCH ×2 (07:12→20:20)
[2021-09-23] MEDS: NYSTATIN CREAM - 30GM TUBE TP SCH ×2 (07:28→20:20)
[2021-09-23] MEDS ORDERED: Dextrose 10%-water IV solution 1,000 ML IV SCH (08:35)
--- NOTE | 2021-09-23 11:35 | NUR ---
F/u 09/23: Pt remains intubated tolerating TF at goal though currently NPO pending PEG placement receiving D10 at 20ml/hr in meantime per EMR. LBM 09/22 receiving routine colace and miralax HS. Will continue to monitor for TF tolerance via PEG. Recommendations: 1. Continuous TF via PEG using Vital AF with 70 mL/hr goal to provide 1680 mL total volume/day, 2016 kcal, 126 g protein, and 1326 mL water 2. monitor for TF tolerance following PEG 3. Additional 200 mL water flush Q4H per MD on HD 4. PALB q Sunday/; Daily scaled weights 5. routine bowel care Addendum: 09/23/21 at [address] Amended: Links added.
[2021-09-23] MEDS ORDERED: LIDOcaine 1% (10mg/ml) 2ml vial ONE (11:42)
[2021-09-23] MEDS ORDERED: fentaNYL/PF 50MCG/1 ML 2ML syringe ONE (11:42)
[2021-09-23] MEDS ORDERED: iohexol 300 MG/1 ML 50ml polymer ONE (11:42)
[2021-09-23] MEDS ORDERED: glucagon, human recombinant 1mg kit ONE (11:42)
--- NOTE | 2021-09-23 11:59 | NUR ---
Patient transported to angio with 2 RN's and 1 RT at bedside. All lines traced and intact.
--- NOTE | 2021-09-23 13:00 | NUR ---
Pt arrived back to room with same transport team as before. Lines traced and all still intact. New PEG in place. Angio RN stated per we can't use the PEG for 12 hours. Will continue with meds through the NG tube. Reconnected to monitor and settled in room. Addendum: 09/23/21 at 1345 by Eliana Arthur RN Per orders can use the PEG after 6 hours.
[2021-09-23] MEDS: lansoprazole 15mg solutab NG SCH (13:09)
[2021-09-23] MEDS: amiodarone 200mg tablet PO SCH ×2 (13:09→20:20)
[2021-09-23] MEDS: QUEtiapine 25mg tablet NG SCH ×2 (13:10→20:20)
[2021-09-23] MEDS: docusate sodium 100mg/10ml UD cup NG SCH ×2 (13:10→18:51)
[2021-09-23] MEDS: allopurinol 100mg tablet NG SCH (13:10)
[2021-09-23] MEDS: potassium Cl 20 mEq SR tablet NG SCH (13:11)
[2021-09-23] MEDS ORDERED: zinc oxide ointment 30gm tube TP PRN (13:30)
--- NOTE | 2021-09-23 14:03 | NUR ---
TF Consult: Pt s/p VALERIE; current TF order active in EMR per RD recs. No changes to recommendations at this time. Addendum: 09/23/21 at [address] Amended: Links added.
[2021-09-23] MEDS: insulin glargine (Lantus) pen - multi-dose SQ SCH (21:00)
[2021-09-23] MEDS: polyethylene glycol 3350 17gm powd pack NG SCH (21:00)
[2021-09-24] VITALS (23 sets, daily range): BP systolic 111–181; BP diastolic 40–76
[2021-09-24] MEDS: mineral oil/petrolatum ophthal oint EACHEYE SCH ×4 (02:00→20:00)
[2021-09-24 03:12] LABS: BASOPHILS % (AUTO) 0.3 % (0-1); EOSINOPHILS # (AUTO) 0.2 X10'3 (0-0.9); EOSINOPHILS % (AUTO) 1.7 % (0-6); HEMATOCRIT 25.6 % (35.0-45.0); LYMPHOCYTES # (AUTO) 1.2 X10'3 (1.1-4.8); LYMPHOCYTES % (AUTO) 14.1 % (21-51); MEAN CORPUSCULAR HGB CONC 31.3 g/dL (33.0-36.5); MONOCYTES % (AUTO) 12.1 % (2-12); NEUTROPHILS # (AUTO) 6.2 X10'3 (1.8-7.7); NEUTROPHILS % (AUTO) 71.8 % (42-75); PLATELET COUNT 364 X10'3 (140-440); RED BLOOD COUNT 3.08 X10'6 (4.20-5.60); RED CELL DISTRIBUTION WIDTH 20.6 % (11.5-14.5); WHITE BLOOD COUNT 8.6 X10'3 (4.5-11.0)
[2021-09-24] MEDS: ipratropium/albuterol 3ml nebule NEB SCH ×6 (03:16→23:11)
--- NOTE | 2021-09-24 03:30 | NUR ---
Repositioning in bed, sat decreased to 75-78%. RT present, suctioning done & Fi02 increased to 60%.
[2021-09-24 03:36] LABS: ALANINE AMINOTRANSFERASE 10 U/L (12-78); ALBUMIN 2.4 G/DL (3.4-5.0); ALBUMIN/GLOBULIN RATIO 0.8 (1.1-1.5); ALKALINE PHOSPHATASE 170 IU/L (46-116); ANION GAP 14 (8-16); ASPARTATE AMINO TRANSFERASE 12 U/L (10-37); BILIRUBIN,TOTAL 0.8 MG/DL (0.1-1.0); BLOOD UREA NITROGEN 38 MG/DL (7-18); BUN/CREATININE RATIO 21.2 (6.6-38.0); CALCIUM 8.5 MG/DL (8.5-10.1); CHLORIDE 95 MMOL/L (99-107); CREATININE 1.79 MG/DL (0.40-0.90); GLUCOSE 161 MG/DL (70-104); MAGNESIUM 1.9 MG/DL (1.5-2.4); PHOSPHORUS 3.1 MG/DL (2.3-4.5); SODIUM 132 MMOL/L (135-145); TOTAL PROTEIN 5.6 G/DL (6.4-8.2); eGFR 28 ML/MIN
[2021-09-24 06:07] LABS: TOTAL CELLS COUNTED 100
[2021-09-24 06:08] LABS: ANISOCYTOSIS 3+; HYPOCHROMASIA 1+; PLATELET ESTIMATE NORMAL; POLYCHROMASIA FEW; TARGET CELLS FEW
[2021-09-24 06:09] LABS: LARGE PLATELETS FEW; STOMATOCYTES FEW
[2021-09-24] MEDS: lansoprazole 15mg solutab NG SCH (07:04)
[2021-09-24] MEDS: docusate sodium 100mg/10ml UD cup NG SCH ×2 (07:04→20:59)
[2021-09-24] MEDS: amiodarone 200mg tablet PO SCH ×2 (07:04→20:59)
[2021-09-24] MEDS: QUEtiapine 25mg tablet NG SCH ×2 (07:04→20:59)
[2021-09-24] MEDS: allopurinol 100mg tablet NG SCH (07:04)
[2021-09-24] MEDS: potassium Cl 20 mEq SR tablet NG SCH (07:07)
[2021-09-24] MEDS: NYSTATIN CREAM - 30GM TUBE TP SCH ×2 (07:07→20:00)
[2021-09-24] MEDS: heparin, porcine 5000 units/ml vial SQ SCH ×2 (07:10→21:00)
[2021-09-24] MEDS: insulin regular, human U-100 3ml vial - multi-dose SQ SCH ×3 (07:20→20:55)
[2021-09-24] MEDS ORDERED: heparin 1,000unit/ml 10ml vial 10 ML IV ONE (08:00)
[2021-09-24] MEDS ORDERED: EPOETIN ALFA-EPBX 20,000 UNIT/ML 1 ML MDV IV ONE (08:00)
[2021-09-24] MEDS ORDERED: heparin 1,000 units/ml 10ml inj HE ONE ×2 (08:00)
[2021-09-24] MEDS ORDERED: normal saline 1000ml 250 ML IV PRN (08:00)
[2021-09-24] MEDS: acetaminophen 325mg/10.15ml oral unit dose solution NG PRN (09:55)
[2021-09-24] MEDS: insulin glargine (Lantus) pen - multi-dose SQ SCH (20:59)
[2021-09-24] MEDS: polyethylene glycol 3350 17gm powd pack NG SCH (20:59)
[2021-09-25] VITALS (26 sets, daily range): BP systolic 118–176; BP diastolic 41–68
[2021-09-25] MEDS: mineral oil/petrolatum ophthal oint EACHEYE SCH ×4 (02:00→20:55)
[2021-09-25] MEDS: ipratropium/albuterol 3ml nebule NEB SCH ×6 (03:05→23:20)
[2021-09-25] MEDS: insulin regular, human U-100 3ml vial - multi-dose SQ SCH ×4 (03:06→20:55)
[2021-09-25 03:52] LABS: BASOPHILS % (AUTO) 0.4 % (0-1); EOSINOPHILS # (AUTO) 0.2 X10'3 (0-0.9); EOSINOPHILS % (AUTO) 2.6 % (0-6); HEMATOCRIT 23.7 % (35.0-45.0); HEMOGLOBIN 7.5 g/dl (12.0-16.0); LYMPHOCYTES % (AUTO) 13.6 % (21-51); MEAN CORPUSCULAR HEMOGLOBIN 26.2 PG (27.0-31.0); MEAN CORPUSCULAR HGB CONC 31.8 g/dL (33.0-36.5); MEAN CORPUSCULAR VOLUME 82.4 FL (78-98); MEAN PLATELET VOLUME 7.9 FL (7.4-10.4); MONOCYTES # (AUTO) 1.1 X10'3 (0-0.9); MONOCYTES % (AUTO) 14.7 % (2-12); NEUTROPHILS # (AUTO) 5.1 X10'3 (1.8-7.7); NEUTROPHILS % (AUTO) 68.7 % (42-75); PLATELET COUNT 401 X10'3 (140-440); RED BLOOD COUNT 2.88 X10'6 (4.20-5.60); RED CELL DISTRIBUTION WIDTH 20.6 % (11.5-14.5); WHITE BLOOD COUNT 7.4 X10'3 (4.5-11.0)
[2021-09-25 03:57] LABS: ALANINE AMINOTRANSFERASE 27 U/L (12-78); ALBUMIN 2.3 G/DL (3.4-5.0); ALBUMIN/GLOBULIN RATIO 0.7 (1.1-1.5); ALKALINE PHOSPHATASE 154 IU/L (46-116); ANION GAP 7 (8-16); ASPARTATE AMINO TRANSFERASE 21 U/L (10-37); BILIRUBIN,TOTAL 0.7 MG/DL (0.1-1.0); BLOOD UREA NITROGEN 25 MG/DL (7-18); BUN/CREATININE RATIO 18.4 (6.6-38.0); CALCIUM 8.4 MG/DL (8.5-10.1); CHLORIDE 99 MMOL/L (99-107); CREATININE 1.36 MG/DL (0.40-0.90); GLUCOSE 156 MG/DL (70-104); MAGNESIUM 1.9 MG/DL (1.5-2.4); PHOSPHORUS 2.4 MG/DL (2.3-4.5); SODIUM 135 MMOL/L (135-145); TOTAL CARBON DIOXIDE 28.7 MMOL/L (24-32); TOTAL PROTEIN 5.5 G/DL (6.4-8.2); eGFR 38 ML/MIN
[2021-09-25 06:31] LABS: ANISOCYTOSIS 3+; HYPOCHROMASIA 1+; PLATELET ESTIMATE NORMAL; POLYCHROMASIA 1+; TOTAL CELLS COUNTED 100
[2021-09-25 06:32] LABS: STOMATOCYTES 1+; TARGET CELLS FEW
[2021-09-25] MEDS: heparin, porcine 5000 units/ml vial SQ SCH ×2 (08:14→21:17)
[2021-09-25] MEDS: NYSTATIN CREAM - 30GM TUBE TP SCH ×2 (08:14→20:55)
[2021-09-25] MEDS: QUEtiapine 25mg tablet NG SCH ×2 (08:14→21:16)
[2021-09-25] MEDS: potassium Cl 20 mEq SR tablet NG SCH (08:14)
[2021-09-25] MEDS: lansoprazole 15mg solutab NG SCH (08:14)
[2021-09-25] MEDS: docusate sodium 100mg/10ml UD cup NG SCH ×2 (08:14→21:16)
[2021-09-25] MEDS: allopurinol 100mg tablet NG SCH (08:14)
[2021-09-25] MEDS: amiodarone 200mg tablet PO SCH ×2 (08:14→21:16)
[2021-09-25] MEDS: insulin glargine (Lantus) pen - multi-dose SQ SCH (20:53)
[2021-09-25] MEDS: polyethylene glycol 3350 17gm powd pack NG SCH (21:16)
[2021-09-26] VITALS (23 sets, daily range): BP systolic 107–169; BP diastolic 39–80
[2021-09-26] MEDS: ipratropium/albuterol 3ml nebule NEB SCH ×5 (02:20→19:22)
[2021-09-26] MEDS: mineral oil/petrolatum ophthal oint EACHEYE SCH ×4 (02:35→20:31)
[2021-09-26] MEDS: insulin regular, human U-100 3ml vial - multi-dose SQ SCH ×3 (02:39→20:25)
[2021-09-26 02:58] LABS: BASOPHILS # (AUTO) 0.1 X10'3 (0-0.2); BASOPHILS % (AUTO) 0.7 % (0-1); EOSINOPHILS # (AUTO) 0.2 X10'3 (0-0.9); EOSINOPHILS % (AUTO) 2.3 % (0-6); HEMATOCRIT 22.6 % (35.0-45.0); HEMOGLOBIN 7.2 g/dl (12.0-16.0); LYMPHOCYTES # (AUTO) 1.4 X10'3 (1.1-4.8); LYMPHOCYTES % (AUTO) 13.8 % (21-51); MEAN CORPUSCULAR HEMOGLOBIN 26.5 PG (27.0-31.0); MEAN CORPUSCULAR HGB CONC 31.7 g/dL (33.0-36.5); MEAN CORPUSCULAR VOLUME 83.4 FL (78-98); MONOCYTES # (AUTO) 1.4 X10'3 (0-0.9); MONOCYTES % (AUTO) 13.6 % (2-12); NEUTROPHILS # (AUTO) 7.2 X10'3 (1.8-7.7); NEUTROPHILS % (AUTO) 69.6 % (42-75); PLATELET COUNT 479 X10'3 (140-440); RED BLOOD COUNT 2.72 X10'6 (4.20-5.60); RED CELL DISTRIBUTION WIDTH 20.8 % (11.5-14.5); WHITE BLOOD COUNT 10.3 X10'3 (4.5-11.0)
[2021-09-26 03:26] LABS: ALANINE AMINOTRANSFERASE 24 U/L (12-78); ALBUMIN 2.1 G/DL (3.4-5.0); ALBUMIN/GLOBULIN RATIO 0.7 (1.1-1.5); ALKALINE PHOSPHATASE 147 IU/L (46-116); ANION GAP 7 (8-16); ASPARTATE AMINO TRANSFERASE 14 U/L (10-37); BILIRUBIN,TOTAL 0.6 MG/DL (0.1-1.0); BLOOD UREA NITROGEN 39 MG/DL (7-18); BUN/CREATININE RATIO 20.5 (6.6-38.0); CALCIUM 8.5 MG/DL (8.5-10.1); CHLORIDE 99 MMOL/L (99-107); GLUCOSE 155 MG/DL (70-104); MAGNESIUM 1.8 MG/DL (1.5-2.4); PHOSPHORUS 2.3 MG/DL (2.3-4.5); POTASSIUM 4.4 MMOL/L (3.5-5.1); SODIUM 135 MMOL/L (135-145); TOTAL CARBON DIOXIDE 28.9 MMOL/L (24-32); TOTAL PROTEIN 5.2 G/DL (6.4-8.2); eGFR 26 ML/MIN
[2021-09-26 04:25] LABS: ANISOCYTOSIS 3+; PLATELET ESTIMATE INCREASED; TOTAL CELLS COUNTED 100
[2021-09-26 04:26] LABS: ELLIPTOCYTES FEW; HYPOCHROMASIA 1+; POLYCHROMASIA FEW; STOMATOCYTES FEW
[2021-09-26] MEDS: lansoprazole 15mg solutab NG SCH (07:38)
[2021-09-26] MEDS: allopurinol 100mg tablet NG SCH (07:39)
[2021-09-26] MEDS: docusate sodium 100mg/10ml UD cup NG SCH ×2 (07:39→20:30)
[2021-09-26] MEDS: heparin, porcine 5000 units/ml vial SQ SCH ×2 (07:40→20:30)
[2021-09-26] MEDS: amiodarone 200mg tablet PO SCH ×2 (07:40→20:30)
[2021-09-26] MEDS: QUEtiapine 25mg tablet NG SCH ×2 (07:40→20:30)
[2021-09-26] MEDS: NYSTATIN CREAM - 30GM TUBE TP SCH ×2 (07:41→20:31)
[2021-09-26] MEDS: potassium Cl 20 mEq SR tablet NG SCH (07:41)
[2021-09-26 12:25] LABS: HEMATOCRIT 23.1 % (35.0-45.0); HEMOGLOBIN 7.3 g/dl (12.0-16.0); MEAN CORPUSCULAR HEMOGLOBIN 26.2 PG (27.0-31.0); MEAN CORPUSCULAR HGB CONC 31.6 g/dL (33.0-36.5); MEAN CORPUSCULAR VOLUME 82.8 FL (78-98); MEAN PLATELET VOLUME 7.3 FL (7.4-10.4); PLATELET COUNT 467 X10'3 (140-440); RED BLOOD COUNT 2.79 X10'6 (4.20-5.60); RED CELL DISTRIBUTION WIDTH 20.8 % (11.5-14.5); WHITE BLOOD COUNT 11.8 X10'3 (4.5-11.0)
--- NOTE | 2021-09-26 13:31 | NUR ---
f/u 09/26: Pt remains intubated and tolerating TF at goal of Vital AF at 70ml/hr. Noted water flush has been decreased from 200ml Q4H to 50ml Q4H per MD. Pt w/ 400ml ostomy output 09/25 per documentation, receiving routine colace and miralax. No change to recommendations at this time, will continue to monitor. Recommendations: 1. Continuous TF via PEG using Vital AF with 70 mL/hr goal to provide 1680 mL total volume/day, 2016 kcal, 126 g protein, and 1326 mL water 2. monitor for TF tolerance following PEG 3. Additional 50 mL water flush Q4H per MD on HD 4. PALB q Sunday/; Daily scaled weights 5. routine bowel care Addendum: 09/26/21 at [address] Amended: Links added.
[2021-09-26] MEDS: insulin glargine (Lantus) pen - multi-dose SQ SCH (20:29)
[2021-09-26] MEDS: polyethylene glycol 3350 17gm powd pack NG SCH (20:30)
[2021-09-27] VITALS (28 sets, daily range): BP systolic 115–161; BP diastolic 39–76
[2021-09-27] MEDS: ipratropium/albuterol 3ml nebule NEB SCH ×7 (00:03→23:02)
[2021-09-27] MEDS: mineral oil/petrolatum ophthal oint EACHEYE SCH ×4 (02:00→19:48)
[2021-09-27 02:56] LABS: BASOPHILS % (AUTO) 0.4 % (0-1); EOSINOPHILS # (AUTO) 0.4 X10'3 (0-0.9); EOSINOPHILS % (AUTO) 3.6 % (0-6); HEMATOCRIT 22.4 % (35.0-45.0); LYMPHOCYTES # (AUTO) 1.4 X10'3 (1.1-4.8); MEAN CORPUSCULAR HEMOGLOBIN 25.8 PG (27.0-31.0); MEAN CORPUSCULAR HGB CONC 31.4 g/dL (33.0-36.5); MEAN CORPUSCULAR VOLUME 82.2 FL (78-98); MEAN PLATELET VOLUME 7.6 FL (7.4-10.4); MONOCYTES # (AUTO) 1.6 X10'3 (0-0.9); MONOCYTES % (AUTO) 15.5 % (2-12); NEUTROPHILS % (AUTO) 67.5 % (42-75); PLATELET COUNT 491 X10'3 (140-440); RED BLOOD COUNT 2.73 X10'6 (4.20-5.60); RED CELL DISTRIBUTION WIDTH 20.8 % (11.5-14.5); WHITE BLOOD COUNT 10.4 X10'3 (4.5-11.0)
[2021-09-27 03:13] LABS: ANION GAP 6 (8-16); BLOOD UREA NITROGEN 53 MG/DL (7-18); BUN/CREATININE RATIO 23.5 (6.6-38.0); CHLORIDE 100 MMOL/L (99-107); CREATININE 2.26 MG/DL (0.40-0.90); GLUCOSE 92 MG/DL (70-104); POTASSIUM 4.7 MMOL/L (3.5-5.1); SODIUM 136 MMOL/L (135-145); TOTAL CARBON DIOXIDE 30.2 MMOL/L (24-32)
[2021-09-27 03:14] LABS: ALANINE AMINOTRANSFERASE 24 U/L (12-78); ALBUMIN 2.1 G/DL (3.4-5.0); ALBUMIN/GLOBULIN RATIO 0.6 (1.1-1.5); ALKALINE PHOSPHATASE 136 IU/L (46-116); ASPARTATE AMINO TRANSFERASE 19 U/L (10-37); BILIRUBIN,TOTAL 0.6 MG/DL (0.1-1.0); CALCIUM 8.2 MG/DL (8.5-10.1); MAGNESIUM 1.8 MG/DL (1.5-2.4); PHOSPHORUS 2.7 MG/DL (2.3-4.5); TOTAL PROTEIN 5.4 G/DL (6.4-8.2); eGFR 21 ML/MIN
[2021-09-27] MEDS: QUEtiapine 25mg tablet NG SCH ×2 (08:02→19:44)
[2021-09-27] MEDS: allopurinol 100mg tablet NG SCH (08:02)
[2021-09-27] MEDS: potassium Cl 20 mEq SR tablet NG SCH (08:02)
[2021-09-27] MEDS: docusate sodium 100mg/10ml UD cup NG SCH ×2 (08:02→19:44)
[2021-09-27] MEDS: amiodarone 200mg tablet PO SCH (08:02)
[2021-09-27] MEDS: heparin, porcine 5000 units/ml vial SQ SCH ×2 (08:03→19:47)
[2021-09-27] MEDS: pantoprazole 40MG/NS 100ML BAG 100 ML IV SCH (08:03)
[2021-09-27] MEDS: NYSTATIN CREAM - 30GM TUBE TP SCH ×2 (08:04→21:46)
[2021-09-27] MEDS: insulin regular, human U-100 3ml vial - multi-dose SQ SCH ×3 (08:24→20:39)
[2021-09-27] MEDS ORDERED: EPOETIN ALFA-EPBX 20,000 UNIT/ML 1 ML MDV IV ONE (08:30)
[2021-09-27] MEDS ORDERED: heparin 1,000unit/ml 10ml vial 10 ML IV ONE (08:30)
[2021-09-27] MEDS ORDERED: albumin (human) 25% 100ml IV 100 ML IV PRN (08:30)
[2021-09-27] MEDS ORDERED: heparin 1,000 units/ml 10ml inj IV ONE (08:30)
[2021-09-27] MEDS ORDERED: heparin 1,000 units/ml 10ml inj HE ONE ×2 (08:30)
[2021-09-27] MEDS: amiodarone 200mg tablet NG SCH (19:44)
[2021-09-27] MEDS: polyethylene glycol 3350 17gm powd pack NG SCH (20:01)
[2021-09-27] MEDS: insulin glargine (Lantus) pen - multi-dose SQ SCH (20:41)
[2021-09-28] VITALS (24 sets, daily range): BP systolic 132–176; BP diastolic 43–83
[2021-09-28] MEDS: mineral oil/petrolatum ophthal oint EACHEYE SCH ×4 (02:16→20:00)
[2021-09-28] MEDS: insulin regular, human U-100 3ml vial - multi-dose SQ SCH ×3 (02:58→21:09)
[2021-09-28] MEDS: ipratropium/albuterol 3ml nebule NEB SCH ×6 (03:35→23:25)
--- NOTE | 2021-09-28 06:08 | NUR ---
Patient in bed resting with both eyes close no signs of distress noted at this time, vital signs stable will continue to monitor and report changes
--- NOTE | 2021-09-28 06:12 | NUR ---
Problems reprioritized. Patient report given, questions answered & plan of care reviewed with Jelena ECHEVARRIA .
[2021-09-28 07:04] LABS: BASOPHILS # (AUTO) 0.1 X10'3 (0-0.2); BASOPHILS % (AUTO) 0.6 % (0-1); EOSINOPHILS # (AUTO) 0.5 X10'3 (0-0.9); EOSINOPHILS % (AUTO) 3.5 % (0-6); HEMATOCRIT 27.2 % (35.0-45.0); HEMOGLOBIN 8.6 g/dl (12.0-16.0); LYMPHOCYTES # (AUTO) 1.7 X10'3 (1.1-4.8); LYMPHOCYTES % (AUTO) 11.1 % (21-51); MEAN CORPUSCULAR HEMOGLOBIN 26.3 PG (27.0-31.0); MEAN CORPUSCULAR HGB CONC 31.5 g/dL (33.0-36.5); MEAN CORPUSCULAR VOLUME 83.3 FL (78-98); MEAN PLATELET VOLUME 7.4 FL (7.4-10.4); MONOCYTES # (AUTO) 2.2 X10'3 (0-0.9); MONOCYTES % (AUTO) 14.5 % (2-12); NEUTROPHILS # (AUTO) 10.5 X10'3 (1.8-7.7); NEUTROPHILS % (AUTO) 70.3 % (42-75); PLATELET COUNT 473 X10'3 (140-440); RED BLOOD COUNT 3.27 X10'6 (4.20-5.60); RED CELL DISTRIBUTION WIDTH 19.8 % (11.5-14.5); WHITE BLOOD COUNT 14.9 X10'3 (4.5-11.0)
[2021-09-28] MEDS: pantoprazole 40MG/NS 100ML BAG 100 ML IV SCH (07:47)
[2021-09-28] MEDS: docusate sodium 100mg/10ml UD cup NG SCH ×2 (07:48→20:04)
[2021-09-28] MEDS: QUEtiapine 25mg tablet NG SCH ×2 (07:48→20:04)
[2021-09-28] MEDS: potassium Cl 20 mEq SR tablet NG SCH (07:48)
[2021-09-28] MEDS: allopurinol 100mg tablet NG SCH (07:48)
[2021-09-28] MEDS: amiodarone 200mg tablet NG SCH ×2 (07:48→20:04)
[2021-09-28] MEDS: heparin, porcine 5000 units/ml vial SQ SCH ×2 (07:48→20:03)
[2021-09-28] MEDS: NYSTATIN CREAM - 30GM TUBE TP SCH ×2 (07:49→20:00)
[2021-09-28 07:51] LABS: NUCLEATED RED BLOOD CELLS 1 /100WBC (0-0); PLATELET ESTIMATE INCREASED; TOTAL CELLS COUNTED 100
[2021-09-28 07:52] LABS: ANISOCYTOSIS 2+; HYPOCHROMASIA 1+
[2021-09-28 07:53] LABS: POLYCHROMASIA FEW; STOMATOCYTES 1+
[2021-09-28 07:55] LABS: SCHISTOCYTES FEW
[2021-09-28 08:04] LABS: ALANINE AMINOTRANSFERASE 28 U/L (12-78); ALBUMIN 2.2 G/DL (3.4-5.0); ALBUMIN/GLOBULIN RATIO 0.6 (1.1-1.5); ALKALINE PHOSPHATASE 148 IU/L (46-116); ANION GAP 12 (8-16); ASPARTATE AMINO TRANSFERASE 19 U/L (10-37); BILIRUBIN,TOTAL 0.7 MG/DL (0.1-1.0); BLOOD UREA NITROGEN 36 MG/DL (7-18); BUN/CREATININE RATIO 20.3 (6.6-38.0); CALCIUM 7.9 MG/DL (8.5-10.1); CHLORIDE 100 MMOL/L (99-107); CREATININE 1.77 MG/DL (0.40-0.90); GLUCOSE 87 MG/DL (70-104); MAGNESIUM 1.9 MG/DL (1.5-2.4); PHOSPHORUS 2.7 MG/DL (2.3-4.5); POTASSIUM 4.2 MMOL/L (3.5-5.1); SODIUM 139 MMOL/L (135-145); TOTAL CARBON DIOXIDE 26.6 MMOL/L (24-32); TOTAL PROTEIN 5.8 G/DL (6.4-8.2); TRIGLYCERIDES 86 MG/DL (20-135); eGFR 28 ML/MIN
--- NOTE | 2021-09-28 10:41 | NUR ---
PATIENT PLACED ON T- PIECE AT 50% 10L, PATIENTS BLOOD PRESSURE INCREASED TO 190'S AND RR ABOVE 35. MD NOTIFIED AND PATIENT PLACED BACK ON THE VENTILATOR.
[2021-09-28] MEDS: albumin (Human) 5% 250ml 250 ML IV SCH ×2 (12:12→20:08)
[2021-09-28] MEDS: amLODIPine 5mg tablet PO SCH (12:12)
[2021-09-28] MEDS: acetaminophen 325mg/10.15ml oral unit dose solution NG PRN (15:04)
[2021-09-28] MEDS ORDERED: iohexol 300mg/ml 100ml inj. ONE (15:53)
--- NOTE | 2021-09-28 18:25 | NUR ---
Patient in room ICU 2043. I have received report from WALE Bowles and had the opportunity to ask questions and assume patient care. Pt calm and sleeping , no distress noted.Care of pt, assumed. Restraints and Vent in place.
[2021-09-28] MEDS: polyethylene glycol 3350 17gm powd pack NG SCH (20:04)
--- NOTE | 2021-09-28 21:20 | NUR ---
BS 115 , Lantus insulin not available, requested from pharmacy
--- NOTE | 2021-09-28 23:25 | NUR ---
Lantus insulin, still not availabel to give, pharmacy called, will deliver it to ICU soon.
--- NOTE | 2021-09-28 23:42 | NUR ---
Pharmacy delivered Lantus insulin,to ICU, will administer per order.
[2021-09-28] MEDS: insulin glargine (Lantus) pen - multi-dose SQ SCH (23:52)
[2021-09-29] VITALS (39 sets, daily range): BP systolic 114–171; BP diastolic 44–79
[2021-09-29] MEDS: mineral oil/petrolatum ophthal oint EACHEYE SCH ×4 (02:00→20:29)
[2021-09-29] MEDS: insulin regular, human U-100 3ml vial - multi-dose SQ SCH ×3 (03:26→20:45)
[2021-09-29] MEDS: ipratropium/albuterol 3ml nebule NEB SCH ×6 (03:27→22:52)
[2021-09-29 03:40] LABS: BASOPHILS # (AUTO) 0.2 X10'3 (0-0.2); BASOPHILS % (AUTO) 1.2 % (0-1); EOSINOPHILS # (AUTO) 0.4 X10'3 (0-0.9); EOSINOPHILS % (AUTO) 3.2 % (0-6); HEMATOCRIT 25.2 % (35.0-45.0); HEMOGLOBIN 8.5 g/dl (12.0-16.0); LYMPHOCYTES # (AUTO) 1.9 X10'3 (1.1-4.8); MEAN CORPUSCULAR HEMOGLOBIN 28.1 PG (27.0-31.0); MEAN CORPUSCULAR HGB CONC 33.7 g/dL (33.0-36.5); MEAN CORPUSCULAR VOLUME 83.4 FL (78-98); MEAN PLATELET VOLUME 7.3 FL (7.4-10.4); MONOCYTES # (AUTO) 1.5 X10'3 (0-0.9); MONOCYTES % (AUTO) 10.5 % (2-12); NEUTROPHILS # (AUTO) 9.9 X10'3 (1.8-7.7); NEUTROPHILS % (AUTO) 71.1 % (42-75); PLATELET COUNT 459 X10'3 (140-440); RED BLOOD COUNT 3.02 X10'6 (4.20-5.60); RED CELL DISTRIBUTION WIDTH 20.4 % (11.5-14.5); WHITE BLOOD COUNT 13.9 X10'3 (4.5-11.0)
[2021-09-29 03:53] LABS: ALANINE AMINOTRANSFERASE 22 U/L (12-78); ALBUMIN 2.4 G/DL (3.4-5.0); ALBUMIN/GLOBULIN RATIO 0.7 (1.1-1.5); ALKALINE PHOSPHATASE 149 IU/L (46-116); ANION GAP 8 (8-16); ASPARTATE AMINO TRANSFERASE 16 U/L (10-37); BILIRUBIN,TOTAL 0.6 MG/DL (0.1-1.0); BLOOD UREA NITROGEN 46 MG/DL (7-18); BUN/CREATININE RATIO 20.9 (6.6-38.0); CALCIUM 8.3 MG/DL (8.5-10.1); CHLORIDE 100 MMOL/L (99-107); GLUCOSE 101 MG/DL (70-104); MAGNESIUM 1.9 MG/DL (1.5-2.4); PHOSPHORUS 3.7 MG/DL (2.3-4.5); POTASSIUM 4.5 MMOL/L (3.5-5.1); SODIUM 137 MMOL/L (135-145); TOTAL CARBON DIOXIDE 29.1 MMOL/L (24-32); TRIGLYCERIDES 105 MG/DL (20-135); eGFR 22 ML/MIN
[2021-09-29 04:19] LABS: NUCLEATED RED BLOOD CELLS 1 /100WBC (0-0); TOTAL CELLS COUNTED 100
[2021-09-29 04:20] LABS: ANISOCYTOSIS 3+; PLATELET ESTIMATE INCREASED; POLYCHROMASIA FEW
[2021-09-29 04:21] LABS: HYPOCHROMASIA 1+; STOMATOCYTES FEW
--- NOTE | 2021-09-29 05:00 | NUR ---
Pt. given full bed bath, gown and linens changed, oral care given, all hygiene care given Turned and repositioned in bed, pt desaturating during activities, hyperoxygenated for activities.
--- NOTE | 2021-09-29 06:11 | NUR ---
Problems reprioritized. Patient report given, questions answered & plan of care reviewed with WALE Bowles.
[2021-09-29] MEDS ORDERED: heparin 1,000unit/ml 10ml vial 10 ML IV ONE (07:40)
[2021-09-29] MEDS ORDERED: EPOETIN ALFA-EPBX 20,000 UNIT/ML 1 ML MDV IV ONE (07:40)
[2021-09-29] MEDS ORDERED: albumin (human) 25% 100ml IV 100 ML IV PRN (07:40)
[2021-09-29] MEDS ORDERED: heparin 1,000 units/ml 10ml inj IV ONE (07:40)
[2021-09-29] MEDS ORDERED: heparin 1,000 units/ml 10ml inj HE ONE ×2 (07:45)
[2021-09-29] MEDS: heparin, porcine 5000 units/ml vial SQ SCH ×2 (08:00→20:28)
[2021-09-29] MEDS: allopurinol 100mg tablet NG SCH (08:10)
[2021-09-29] MEDS: docusate sodium 100mg/10ml UD cup NG SCH ×2 (08:10→20:28)
[2021-09-29] MEDS: amiodarone 200mg tablet NG SCH ×2 (08:10→20:28)
[2021-09-29] MEDS: pantoprazole 40MG/NS 100ML BAG 100 ML IV SCH (08:10)
[2021-09-29] MEDS: QUEtiapine 25mg tablet NG SCH (08:10)
[2021-09-29] MEDS: potassium Cl 20 mEq SR tablet NG SCH (08:10)
[2021-09-29] MEDS: NYSTATIN CREAM - 30GM TUBE TP SCH ×2 (08:11→20:28)
[2021-09-29] MEDS: albumin (Human) 5% 250ml 250 ML IV SCH (08:11)
[2021-09-29] MEDS: amLODIPine 5mg tablet PO SCH (08:11)
[2021-09-29] MEDS ORDERED: polyethylene glycol 3350 17gm powd pack NG PRN (11:27)
[2021-09-29] MEDS ORDERED: tPA-cathflo 2 MG/2 ml IV flush IVF ONE (11:50)
[2021-09-29] MEDS: vancomycin/NS 1 GM ADD-VANTAGE 250 ML X 1 DOSE IV SCH (13:13)
[2021-09-29] MEDS: piperacillin/tazo 3.375gm/50 ML IV SCH ×2 (13:14→20:29)
[2021-09-29] MEDS ORDERED: LIDOcaine 1% 30ml preserv. free vial IJ STA (14:56)
--- NOTE | 2021-09-29 18:30 | NUR ---
Patient in room ICU 2043. I have received report from Eliana ECHEVARRIA and had the opportunity to ask questions and assume patient care.
[2021-09-29] MEDS: insulin glargine (Lantus) pen - multi-dose SQ SCH (20:46)
[2021-09-30] VITALS (34 sets, daily range): BP systolic 117–178; BP diastolic 36–74
[2021-09-30] MEDS: insulin regular, human U-100 3ml vial - multi-dose SQ SCH ×3 (02:52→21:33)
[2021-09-30] MEDS: mineral oil/petrolatum ophthal oint EACHEYE SCH ×4 (02:54→20:00)
[2021-09-30 02:55] LABS: BASOPHILS # (AUTO) 0.1 X10'3 (0-0.2); BASOPHILS % (AUTO) 0.8 % (0-1); EOSINOPHILS # (AUTO) 0.2 X10'3 (0-0.9); EOSINOPHILS % (AUTO) 1.4 % (0-6); HEMATOCRIT 26.9 % (35.0-45.0); HEMOGLOBIN 8.5 g/dl (12.0-16.0); LYMPHOCYTES # (AUTO) 1.3 X10'3 (1.1-4.8); LYMPHOCYTES % (AUTO) 8.6 % (21-51); MEAN CORPUSCULAR HEMOGLOBIN 26.7 PG (27.0-31.0); MEAN CORPUSCULAR HGB CONC 31.6 g/dL (33.0-36.5); MEAN CORPUSCULAR VOLUME 84.5 FL (78-98); MEAN PLATELET VOLUME 7.1 FL (7.4-10.4); MONOCYTES # (AUTO) 1.5 X10'3 (0-0.9); MONOCYTES % (AUTO) 10.6 % (2-12); NEUTROPHILS # (AUTO) 11.4 X10'3 (1.8-7.7); NEUTROPHILS % (AUTO) 78.6 % (42-75); PLATELET COUNT 441 X10'3 (140-440); RED BLOOD COUNT 3.18 X10'6 (4.20-5.60); RED CELL DISTRIBUTION WIDTH 20.5 % (11.5-14.5); WHITE BLOOD COUNT 14.6 X10'3 (4.5-11.0)
[2021-09-30 03:01] LABS: ALBUMIN 2.4 G/DL (3.4-5.0); ANION GAP 4 (8-16); BLOOD UREA NITROGEN 27 MG/DL (7-18); BUN/CREATININE RATIO 17.1 (6.6-38.0); CHLORIDE 102 MMOL/L (99-107); CREATININE 1.58 MG/DL (0.40-0.90); GLUCOSE 146 MG/DL (70-104); POTASSIUM 4.1 MMOL/L (3.5-5.1); SODIUM 137 MMOL/L (135-145); eGFR 32 ML/MIN
[2021-09-30] MEDS: ipratropium/albuterol 3ml nebule NEB SCH ×6 (03:19→22:46)
[2021-09-30 05:42] LABS: ANISOCYTOSIS 3+; PLATELET ESTIMATE INCREASED; TOTAL CELLS COUNTED 100
[2021-09-30 05:44] LABS: HYPOCHROMASIA 1+; POLYCHROMASIA 1+; SCHISTOCYTES FEW; STOMATOCYTES FEW; TEAR DROP CELLS FEW
[2021-09-30] MEDS: piperacillin/tazo 3.375gm/50 ML IV SCH ×2 (08:09→20:24)
[2021-09-30] MEDS: pantoprazole 40MG/NS 100ML BAG 100 ML IV SCH (08:09)
[2021-09-30] MEDS: amLODIPine 5mg tablet PO SCH (08:10)
[2021-09-30] MEDS: heparin, porcine 5000 units/ml vial SQ SCH ×2 (08:11→20:25)
[2021-09-30] MEDS: NYSTATIN CREAM - 30GM TUBE TP SCH ×2 (08:11→20:25)
[2021-09-30] MEDS: potassium Cl 20 mEq SR tablet NG SCH (08:11)
[2021-09-30] MEDS: docusate sodium 100mg/10ml UD cup NG SCH ×2 (08:12→20:24)
[2021-09-30] MEDS: allopurinol 100mg tablet NG SCH (08:12)
[2021-09-30] MEDS: amiodarone 200mg tablet NG SCH ×2 (08:12→20:24)
--- NOTE | 2021-09-30 12:13 | NUR ---
F/u 09/29: Pt remains intubated tolerating TF at goal GRV WNL. Rectal tube 450ml output in bag during RD rounds this AM though unsure of time frame as last documented stool output 09/25-09/26 per I&O's. Pt receiving routine colace w/ miralax HS stopped after 09/28 dose per EMR. Will continue to monitor for TF tolerance and adjustment needs. Recommendations: 1. Continuous TF via PEG using Vital AF with 70 mL/hr goal to provide 1680 mL total volume/day, 2016 kcal, 126 g protein, and 1326 mL water 2. Additional 50 mL water flush Q4H per MD on HD 3. PALB q Sunday/; Daily scaled weights 4. bowel care per rx Addendum: 09/30/21 at [address] Amended: Links added. Addendum: 09/30/21 at [address] CORRECTION* F/u 09/30: Pt remains intubated tolerating TF at goal GRV WNL. Rectal tube 450ml output in bag during RD rounds this AM though unsure of time frame as last documented stool output 09/25-09/26 per I&O's. Pt receiving routine colace w/ miralax HS stopped after 09/28 dose per EMR. Will continue to monitor for TF tolerance and adjustment needs. Recommendations: 1. Continuous TF via PEG using Vital AF with 70 mL/hr goal to provide 1680 mL total volume/day, 2016 kcal, 126 g protein, and 1326 mL water 2. Additional 50 mL water flush Q4H per MD on HD 3. PALB q Sunday/; Daily scaled weights 4. bowel care per rx
[2021-09-30] MEDS: insulin glargine (Lantus) pen - multi-dose SQ SCH (21:35)
[2021-10-01] VITALS (35 sets, daily range): BP systolic 111–153; BP diastolic 33–84
[2021-10-01] MEDS: insulin regular, human U-100 3ml vial - multi-dose SQ SCH ×4 (02:21→20:50)
[2021-10-01] MEDS: mineral oil/petrolatum ophthal oint EACHEYE SCH ×4 (02:23→20:35)
[2021-10-01] MEDS: ipratropium/albuterol 3ml nebule NEB SCH ×5 (02:36→19:00)
[2021-10-01 02:39] LABS: BASOPHILS # (AUTO) 0.2 X10'3 (0-0.2); BASOPHILS % (AUTO) 1.2 % (0-1); EOSINOPHILS # (AUTO) 0.3 X10'3 (0-0.9); EOSINOPHILS % (AUTO) 2.1 % (0-6); HEMATOCRIT 25.9 % (35.0-45.0); HEMOGLOBIN 8.3 g/dl (12.0-16.0); LYMPHOCYTES # (AUTO) 1.6 X10'3 (1.1-4.8); MEAN CORPUSCULAR HEMOGLOBIN 26.8 PG (27.0-31.0); MEAN CORPUSCULAR VOLUME 83.6 FL (78-98); MEAN PLATELET VOLUME 7.1 FL (7.4-10.4); MONOCYTES # (AUTO) 1.8 X10'3 (0-0.9); MONOCYTES % (AUTO) 11.1 % (2-12); NEUTROPHILS # (AUTO) 12.2 X10'3 (1.8-7.7); NEUTROPHILS % (AUTO) 75.6 % (42-75); PLATELET COUNT 459 X10'3 (140-440); RED CELL DISTRIBUTION WIDTH 20.9 % (11.5-14.5); WHITE BLOOD COUNT 16.1 X10'3 (4.5-11.0)
[2021-10-01 02:49] LABS: ALBUMIN 2.2 G/DL (3.4-5.0); ANION GAP 10 (8-16); BLOOD UREA NITROGEN 40 MG/DL (7-18); BUN/CREATININE RATIO 17.4 (6.6-38.0); CALCIUM 8.5 MG/DL (8.5-10.1); CHLORIDE 99 MMOL/L (99-107); GLUCOSE 136 MG/DL (70-104); POTASSIUM 4.4 MMOL/L (3.5-5.1); SODIUM 138 MMOL/L (135-145); TOTAL CARBON DIOXIDE 28.8 MMOL/L (24-32); eGFR 21 ML/MIN
[2021-10-01 03:57] LABS: TOTAL CELLS COUNTED 100
[2021-10-01 03:58] LABS: ANISOCYTOSIS 3+; HYPOCHROMASIA 1+; PLATELET ESTIMATE INCREASED
[2021-10-01 03:59] LABS: ELLIPTOCYTES 1+
[2021-10-01 04:00] LABS: POLYCHROMASIA FEW; TEAR DROP CELLS FEW
--- NOTE | 2021-10-01 06:40 | NUR ---
Patient in room ICU 2043. I have received report from Diego ECHEVARRIA and had the opportunity to ask questions and assume patient care. Pt semi fowlers in bed, weight shifted to the right, supported with pillows, CPAP in place (40%FIO2) over trach, chest rising and falling evenly. heels floated, safety measures in place. no s/sx acute distress.
[2021-10-01] MEDS: piperacillin/tazo 3.375gm/50 ML IV SCH ×2 (08:22→20:35)
[2021-10-01] MEDS: pantoprazole 40MG/NS 100ML BAG 100 ML IV SCH (08:22)
[2021-10-01] MEDS: vancomycin/NS 1 GM ADD-VANTAGE 250 ML X 1 DOSE IV SCH (08:22)
[2021-10-01] MEDS: docusate sodium 100mg/10ml UD cup NG SCH ×2 (08:24→20:34)
[2021-10-01] MEDS: amLODIPine 5mg tablet PO SCH (08:25)
[2021-10-01] MEDS: allopurinol 100mg tablet NG SCH (08:25)
[2021-10-01] MEDS: amiodarone 200mg tablet NG SCH ×2 (08:25→20:35)
[2021-10-01] MEDS: potassium Cl 20 mEq SR tablet NG SCH (08:25)
[2021-10-01] MEDS: NYSTATIN CREAM - 30GM TUBE TP SCH ×2 (08:26→20:35)
[2021-10-01] MEDS: heparin, porcine 5000 units/ml vial SQ SCH ×2 (08:26→20:35)
[2021-10-01] MEDS ORDERED: heparin 1,000unit/ml 10ml vial 10 ML IV ONE (08:35)
[2021-10-01] MEDS ORDERED: EPOETIN ALFA-EPBX 20,000 UNIT/ML 1 ML MDV IV ONE (08:35)
[2021-10-01] MEDS ORDERED: heparin 1,000 units/ml 10ml inj IV ONE (08:35)
[2021-10-01] MEDS ORDERED: heparin 1,000 units/ml 10ml inj HE ONE ×2 (08:40)
[2021-10-01 10:47] LABS: CLARITY,URINE CLOUDY (Clear); COLOR,URINE YELLOW (Yellow); GLUCOSE, URINE NEGATIVE (Neg); KETONES,URINE NEGATIVE (Neg); LEUKOCYTE ESTERASE ,URINE LARGE (Neg); NITRITES, URINE NEGATIVE (Neg); OCCULT BLOOD,URINE LARGE (Neg); PROTEIN,URINE 100 mg/dl (Neg); UROBILINOGEN,URINE 0.2 E.U/dL (0.2-1.0)
[2021-10-01 10:52] LABS: UA COLLECTION TYPE FOLEY CATH
[2021-10-01 10:55] LABS: BACTERIA,URINE NONE SEEN /HPF (Neg); RBC,URINE 20-50 /HPF (0-2); WBC,URINE TNTC /HPF (0-4)
[2021-10-01 10:56] LABS: MUCUS STRANDS NONE SEEN /LPF (Neg); RENAL CELLS, URINE FEW /HPF; SQUAMOUS EPITHELIAL CELL,UR FEW /LPF (FEW); TRANSITIONAL EPI CELLS,URINE FEW /HPF; YEAST MODERATE /HPF (NEGATIVE)
--- NOTE | 2021-10-01 11:53 | NUR ---
pt adamantly refusing teeth brushing. pressing lips together, shaking head no. lips moisturized and cleansed.
--- NOTE | 2021-10-01 12:48 | NUR ---
Pt returned to Afib during beginning of HD. asymptomatic. Addendum: 10/01/21 at 1503 by Lorene Ulloa RN pt return to SR in 60's at 1330
--- NOTE | 2021-10-01 14:59 | NUR ---
Pt into AFIB x4 mins, rate in low 100's then returned to SR in 60's
--- NOTE | 2021-10-01 18:19 | NUR ---
Problems reprioritized. Patient report given, questions answered & plan of care reviewed with Mohamud ECHEVARRIA. Pt semi fowlers to the right in bed, supported with pillows, vent to trach at 40% FIO2, VS stable. SR. breathing even. safety measures in place. no s/sx acute distress
[2021-10-01] MEDS: lactobacillus rhamnosus 10,000 MMU CELLS/CAPSULE PO SCH (20:35)
[2021-10-01] MEDS: insulin glargine (Lantus) pen - multi-dose SQ SCH (20:51)
[2021-10-02] VITALS (34 sets, daily range): BP systolic 120–161; BP diastolic 36–68
[2021-10-02] MEDS: ipratropium/albuterol 3ml nebule NEB SCH ×8 (00:06→22:57)
[2021-10-02 02:50] LABS: BASOPHILS # (AUTO) 0.2 X10'3 (0-0.2); BASOPHILS % (AUTO) 1.2 % (0-1); EOSINOPHILS # (AUTO) 0.3 X10'3 (0-0.9); EOSINOPHILS % (AUTO) 1.9 % (0-6); HEMATOCRIT 25.5 % (35.0-45.0); HEMOGLOBIN 8.1 g/dl (12.0-16.0); LYMPHOCYTES # (AUTO) 1.5 X10'3 (1.1-4.8); MEAN CORPUSCULAR HEMOGLOBIN 26.6 PG (27.0-31.0); MEAN CORPUSCULAR HGB CONC 31.7 g/dL (33.0-36.5); MEAN CORPUSCULAR VOLUME 83.7 FL (78-98); MONOCYTES # (AUTO) 1.7 X10'3 (0-0.9); MONOCYTES % (AUTO) 11.5 % (2-12); NEUTROPHILS # (AUTO) 11.2 X10'3 (1.8-7.7); NEUTROPHILS % (AUTO) 75.4 % (42-75); PLATELET COUNT 405 X10'3 (140-440); RED BLOOD COUNT 3.05 X10'6 (4.20-5.60); RED CELL DISTRIBUTION WIDTH 20.9 % (11.5-14.5); WHITE BLOOD COUNT 14.9 X10'3 (4.5-11.0)
[2021-10-02] MEDS: mineral oil/petrolatum ophthal oint EACHEYE SCH ×4 (02:52→20:41)
[2021-10-02 02:59] LABS: ALANINE AMINOTRANSFERASE 14 U/L (12-78); ALBUMIN 2.2 G/DL (3.4-5.0); ALBUMIN/GLOBULIN RATIO 0.6 (1.1-1.5); ALKALINE PHOSPHATASE 114 IU/L (46-116); ANION GAP 7 (8-16); ASPARTATE AMINO TRANSFERASE 13 U/L (10-37); BILIRUBIN,TOTAL 0.6 MG/DL (0.1-1.0); BLOOD UREA NITROGEN 25 MG/DL (7-18); BUN/CREATININE RATIO 15.2 (6.6-38.0); CALCIUM 7.6 MG/DL (8.5-10.1); CHLORIDE 103 MMOL/L (99-107); CREATININE 1.65 MG/DL (0.40-0.90); GLUCOSE 98 MG/DL (70-104); MAGNESIUM 1.8 MG/DL (1.5-2.4); PHOSPHORUS 2.9 MG/DL (2.3-4.5); SODIUM 140 MMOL/L (135-145); TOTAL CARBON DIOXIDE 29.9 MMOL/L (24-32); TOTAL PROTEIN 5.6 G/DL (6.4-8.2); eGFR 30 ML/MIN
[2021-10-02] MEDS: allopurinol 100mg tablet NG SCH (08:31)
[2021-10-02] MEDS: pantoprazole 40MG/NS 100ML BAG 100 ML IV SCH (08:31)
[2021-10-02] MEDS: heparin, porcine 5000 units/ml vial SQ SCH ×2 (08:32→20:42)
[2021-10-02] MEDS: amiodarone 200mg tablet NG SCH ×2 (08:32→20:42)
[2021-10-02] MEDS: potassium Cl 20 mEq SR tablet NG SCH (08:33)
[2021-10-02] MEDS: lactobacillus rhamnosus 10,000 MMU CELLS/CAPSULE PO SCH ×2 (08:33→20:42)
[2021-10-02] MEDS: docusate sodium 100mg/10ml UD cup NG SCH ×2 (08:33→20:00)
[2021-10-02] MEDS: amLODIPine 5mg tablet PO SCH (08:33)
[2021-10-02] MEDS: NYSTATIN CREAM - 30GM TUBE TP SCH ×2 (08:34→20:42)
[2021-10-02] MEDS: piperacillin/tazo 3.375gm/50 ML IV SCH ×2 (08:40→20:49)
[2021-10-02] MEDS ORDERED: HYDROmorphone 1 mg/ml syringe IV ONE (08:45)
[2021-10-02 10:38] LABS: NUCLEATED RED BLOOD CELLS 1 /100WBC (0-0); TOTAL CELLS COUNTED 100
[2021-10-02 10:40] LABS: ANISOCYTOSIS 3+; HYPOCHROMASIA 1+; PLATELET ESTIMATE NORMAL; POLYCHROMASIA FEW; STOMATOCYTES 1+; TEAR DROP CELLS FEW
[2021-10-02] MEDS: insulin regular, human U-100 3ml vial - multi-dose SQ SCH (15:14)
--- NOTE | 2021-10-02 18:22 | NUR ---
Pt is lying in bed. Vitals within limits. Nonverbal. Trache to vent. CPAP Fio2 at 40%. All safety and comfort measures in place. Report endorsed to oncoming nurse. Signed off.
[2021-10-02] MEDS: insulin glargine (Lantus) pen - multi-dose SQ SCH (21:28)
[2021-10-03] VITALS (22 sets, daily range): BP systolic 126–155; BP diastolic 44–65
[2021-10-03] MEDS: mineral oil/petrolatum ophthal oint EACHEYE SCH ×2 (02:00→08:00)
[2021-10-03] MEDS: insulin regular, human U-100 3ml vial - multi-dose SQ SCH ×2 (03:13→11:32)
[2021-10-03] MEDS: ipratropium/albuterol 3ml nebule NEB SCH ×4 (03:27→14:06)
[2021-10-03 03:30] LABS: BASOPHILS # (AUTO) 0.2 X10'3 (0-0.2); BASOPHILS % (AUTO) 1.1 % (0-1); EOSINOPHILS # (AUTO) 0.3 X10'3 (0-0.9); EOSINOPHILS % (AUTO) 1.8 % (0-6); HEMATOCRIT 25.7 % (35.0-45.0); HEMOGLOBIN 8.2 g/dl (12.0-16.0); LYMPHOCYTES # (AUTO) 1.5 X10'3 (1.1-4.8); LYMPHOCYTES % (AUTO) 10.6 % (21-51); MEAN CORPUSCULAR HEMOGLOBIN 26.8 PG (27.0-31.0); MEAN CORPUSCULAR HGB CONC 31.9 g/dL (33.0-36.5); MEAN PLATELET VOLUME 7.2 FL (7.4-10.4); MONOCYTES # (AUTO) 1.6 X10'3 (0-0.9); NEUTROPHILS # (AUTO) 10.8 X10'3 (1.8-7.7); NEUTROPHILS % (AUTO) 75.5 % (42-75); PLATELET COUNT 373 X10'3 (140-440); RED BLOOD COUNT 3.05 X10'6 (4.20-5.60); RED CELL DISTRIBUTION WIDTH 21.4 % (11.5-14.5); WHITE BLOOD COUNT 14.3 X10'3 (4.5-11.0)
[2021-10-03 03:43] LABS: ALANINE AMINOTRANSFERASE 18 U/L (12-78); ALBUMIN 2.2 G/DL (3.4-5.0); ALBUMIN/GLOBULIN RATIO 0.6 (1.1-1.5); ALKALINE PHOSPHATASE 122 IU/L (46-116); ANION GAP 9 (8-16); ASPARTATE AMINO TRANSFERASE 10 U/L (10-37); BILIRUBIN,TOTAL 0.6 MG/DL (0.1-1.0); BLOOD UREA NITROGEN 40 MG/DL (7-18); BUN/CREATININE RATIO 16.4 (6.6-38.0); CALCIUM 8.6 MG/DL (8.5-10.1); CHLORIDE 99 MMOL/L (99-107); CREATININE 2.44 MG/DL (0.40-0.90); GLUCOSE 157 MG/DL (70-104); MAGNESIUM 1.8 MG/DL (1.5-2.4); PHOSPHORUS 4.5 MG/DL (2.3-4.5); POTASSIUM 4.4 MMOL/L (3.5-5.1); SODIUM 135 MMOL/L (135-145); TOTAL CARBON DIOXIDE 26.8 MMOL/L (24-32); TOTAL PROTEIN 5.8 G/DL (6.4-8.2); eGFR 19 ML/MIN
[2021-10-03] MEDS: pantoprazole 40MG/NS 100ML BAG 100 ML IV SCH (08:58)
[2021-10-03] MEDS: docusate sodium 100mg/10ml UD cup NG SCH (08:58)
[2021-10-03] MEDS: vancomycin/NS 1 GM ADD-VANTAGE 250 ML X 1 DOSE IV SCH (08:58)
[2021-10-03] MEDS: lactobacillus rhamnosus 10,000 MMU CELLS/CAPSULE PO SCH (08:59)
[2021-10-03] MEDS: NYSTATIN CREAM - 30GM TUBE TP SCH (08:59)
[2021-10-03] MEDS: amiodarone 200mg tablet NG SCH (08:59)
[2021-10-03] MEDS: heparin, porcine 5000 units/ml vial SQ SCH (08:59)
[2021-10-03] MEDS: potassium Cl 20 mEq SR tablet NG SCH (09:00)
[2021-10-03] MEDS: amLODIPine 5mg tablet PO SCH (09:00)
[2021-10-03] MEDS: allopurinol 100mg tablet NG SCH (09:01)
[2021-10-03] MEDS: piperacillin/tazo 3.375gm/50 ML IV SCH (09:07)
[2021-10-03 10:09] LABS: TOTAL CELLS COUNTED 100
[2021-10-03 10:10] LABS: ANISOCYTOSIS 3+; PLATELET ESTIMATE NORMAL
[2021-10-03 10:11] LABS: HYPOCHROMASIA 1+; POLYCHROMASIA 1+; STOMATOCYTES 1+; TEAR DROP CELLS FEW
[2021-10-03 10:12] LABS: HYPERSEGMENTED NEUTROPHILS 1+; LARGE PLATELETS FEW; TOXIC GRANULATION 1+
[2021-10-03 10:13] LABS: ELLIPTOCYTES FEW
[2021-10-03] MEDS ORDERED: vancomycin/NS 1 GM ADD-VANTAGE 250 ML X 1 DOSE IV PRN (11:50)
--- NOTE | 2021-10-03 13:55 | NUR ---
Report called to Sean CROCKETT. Report endorsed to WALE Rios. Call placed to Adrinene pt sister to notify of transfer. call placed to sarthak Mcnair , no answer. Pt is to be transferred at 143o today.
--- NOTE | 2021-10-03 16:50 | NUR ---
Pt transferred to [facility] via [facility] ambulance. Unit [address], Adalberto and Samantha. Noreen Aviles at side. Pt vitals within limits. Spo2 at 100 % at time of transport. Signed off.
[2021-10-04] MEDS ORDERED: amiodarone 200mg tablet NG SCH (08:00)
[2021-10-05] MEDS ORDERED: VANCOMYCIN LEVEL IV ONE (11:30)
== END 2021-10-03 17:30 | DRG 4 ==
LOC: ER 13:51 → ED HOLD 15:53 → MED 3N 17:50 → CICU 2S 08-20 14:00 → ICU 2S 09-12 23:42
PROVIDERS: ADMIT Family Medicine; ATTEND Family Medicine
PROC: 5A09357 Assistance with Respiratory Ventilation, Less than 24 Consecutive Hours, Continuous Positive Airway Pressure (ICD-10-PCS; 2021-08-18)
PROC: 0W9B00Z Drainage of Left Pleural Cavity with Drainage Device, Open Approach (ICD-10-PCS; 2021-08-18)
PROC: 5A09357 Assistance with Respiratory Ventilation, Less than 24 Consecutive Hours, Continuous Positive Airway Pressure (ICD-10-PCS; 2021-08-20)
PROC: 5A0935A Assistance with Respiratory Ventilation, Less than 24 Consecutive Hours, High Flow/Velocity Cannula (ICD-10-PCS; 2021-08-20)
PROC: 5A1955Z Respiratory Ventilation, Greater than 96 Consecutive Hours (ICD-10-PCS; 2021-08-20)
PROC: 0BH17EZ Insertion of Endotracheal Airway into Trachea, Via Natural or Artificial Opening (ICD-10-PCS; 2021-08-20)
PROC: 0BC78ZZ Extirpation of Matter from Left Main Bronchus, Via Natural or Artificial Opening Endoscopic (ICD-10-PCS; 2021-08-20)
PROC: 02HV33Z Insertion of Infusion Device into Superior Vena Cava, Percutaneous Approach (ICD-10-PCS; 2021-08-20)
PROC: B548ZZA Ultrasonography of Superior Vena Cava, Guidance (ICD-10-PCS; 2021-08-20)
PROC: 02HV33Z Insertion of Infusion Device into Superior Vena Cava, Percutaneous Approach (ICD-10-PCS; 2021-08-30)
PROC: B548ZZA Ultrasonography of Superior Vena Cava, Guidance (ICD-10-PCS; 2021-08-30)
PROC: 5A09357 Assistance with Respiratory Ventilation, Less than 24 Consecutive Hours, Continuous Positive Airway Pressure (ICD-10-PCS; 2021-09-05)
PROC: 5A1955Z Respiratory Ventilation, Greater than 96 Consecutive Hours (ICD-10-PCS; principal; 2021-09-06)
PROC: 0BH17EZ Insertion of Endotracheal Airway into Trachea, Via Natural or Artificial Opening (ICD-10-PCS; 2021-09-06)
PROC: 0B113F4 Bypass Trachea to Cutaneous with Tracheostomy Device, Percutaneous Approach (ICD-10-PCS; 2021-09-09)
PROC: 0JH63XZ Insertion of Tunneled Vascular Access Device into Chest Subcutaneous Tissue and Fascia, Percutaneous Approach (ICD-10-PCS; 2021-09-09)
PROC: 02HV33Z Insertion of Infusion Device into Superior Vena Cava, Percutaneous Approach (ICD-10-PCS; 2021-09-09)
PROC: B548ZZA Ultrasonography of Superior Vena Cava, Guidance (ICD-10-PCS; 2021-09-09)
PROC: B5181ZA Fluoroscopy of Superior Vena Cava using Low Osmolar Contrast, Guidance (ICD-10-PCS; 2021-09-09)
PROC: 5A1D70Z Performance of Urinary Filtration, Intermittent, Less than 6 Hours Per Day (ICD-10-PCS; 2021-09-09)
PROC: 30233N1 Transfusion of Nonautologous Red Blood Cells into Peripheral Vein, Percutaneous Approach (ICD-10-PCS; 2021-09-12)
PROC: 0W9B30Z Drainage of Left Pleural Cavity with Drainage Device, Percutaneous Approach (ICD-10-PCS; 2021-09-13)
PROC: 5A1D70Z Performance of Urinary Filtration, Intermittent, Less than 6 Hours Per Day (ICD-10-PCS; 2021-09-13)
PROC: 5A1D70Z Performance of Urinary Filtration, Intermittent, Less than 6 Hours Per Day (ICD-10-PCS; 2021-09-15)
PROC: 5A1D70Z Performance of Urinary Filtration, Intermittent, Less than 6 Hours Per Day (ICD-10-PCS; 2021-09-17)
PROC: 5A1D70Z Performance of Urinary Filtration, Intermittent, Less than 6 Hours Per Day (ICD-10-PCS; 2021-09-20)
PROC: 5A1D70Z Performance of Urinary Filtration, Intermittent, Less than 6 Hours Per Day (ICD-10-PCS; 2021-09-22)
PROC: 0DH63UZ Insertion of Feeding Device into Stomach, Percutaneous Approach (ICD-10-PCS; 2021-09-23)
PROC: 5A1D70Z Performance of Urinary Filtration, Intermittent, Less than 6 Hours Per Day (ICD-10-PCS; 2021-09-24)
PROC: 5A1D70Z Performance of Urinary Filtration, Intermittent, Less than 6 Hours Per Day (ICD-10-PCS; 2021-09-27)
PROC: BW241ZZ Computerized Tomography (CT Scan) of Chest and Abdomen using Low Osmolar Contrast (ICD-10-PCS; 2021-09-28)
PROC: 0W9B30Z Drainage of Left Pleural Cavity with Drainage Device, Percutaneous Approach (ICD-10-PCS; 2021-09-29)
PROC: 5A1D70Z Performance of Urinary Filtration, Intermittent, Less than 6 Hours Per Day (ICD-10-PCS; 2021-09-29)
PROC: 5A1D70Z Performance of Urinary Filtration, Intermittent, Less than 6 Hours Per Day (ICD-10-PCS; 2021-10-01)
DX: J96.22 Acute and chronic respiratory failure with hypercapnia (principal); J18.9 Pneumonia, unspecified organism; I50.43 Acute on chronic combined systolic (congestive) and diastolic (congestive) heart failure; J86.9 Pyothorax without fistula; I48.92 Unspecified atrial flutter; E87.3 Alkalosis; N17.9 Acute kidney failure, unspecified; J98.11 Atelectasis; J91.8 Pleural effusion in other conditions classified elsewhere; J44.1 Chronic obstructive pulmonary disease with (acute) exacerbation; I13.0 Hypertensive heart and chronic kidney disease with heart failure and stage 1 through stage 4 chronic kidney disease, or unspecified chronic kidney disease; I31.3 Pericardial effusion (noninflammatory); J44.0 Chronic obstructive pulmonary disease with (acute) lower respiratory infection; Z99.11 Dependence on respirator [ventilator] status; T17.590A Other foreign object in bronchus causing asphyxiation, initial encounter; I48.20 Chronic atrial fibrillation, unspecified; N18.4 Chronic kidney disease, stage 4 (severe); J96.21 Acute and chronic respiratory failure with hypoxia; Z20.822 Contact with and (suspected) exposure to COVID-19; H54.8 Legal blindness, as defined in USA; E87.6 Hypokalemia; E78.5 Hyperlipidemia, unspecified; D64.9 Anemia, unspecified; E11.22 Type 2 diabetes mellitus with diabetic chronic kidney disease; E11.51 Type 2 diabetes mellitus with diabetic peripheral angiopathy without gangrene; X58.XXXA Exposure to other specified factors, initial encounter; E88.09 Other disorders of plasma-protein metabolism, not elsewhere classified; R00.1 Bradycardia, unspecified; Z87.891 Personal history of nicotine dependence; Z90.49 Acquired absence of other specified parts of digestive tract; Z88.6 Allergy status to analgesic agent; Z91.030 Bee allergy status; Z79.899 Other long term (current) drug therapy; Y93.89 Activity, other specified; Y92.89 Other specified places as the place of occurrence of the external cause; Y99.8 Other external cause status; Z78.1 Physical restraint status
CPT/HCPCS: 31628; 31645; 32557; 36415; 36430; 36558; 36569; 36573; 36600; 49440; 71045; 71250; 71260; 74018; 76770; 76937; 77001; 80048; 80053; 80069; 80202; 81001; 82272; 82570; 82803; 82948; 83036; 83615; 83735; 83880; 84100; 84132; 84133; 84134; 84145; 84156; 84157; 84300; 84443; 84478; 84484; 84540; 85007; 85008; 85018; 85025; 85027; 85610; 85730; 86038; 86885; 86900; 86901; 86920; 87070; 87077; 87081; 87088; 87207; 87340; 87635; 89051; 93005; 93308; 94002; 94003; 94640; 94660; 94760; 94799; 96365; 96368; 96375; 97110; 97161; 97530; 99285; A7015; A9270; B4087; C1713; C1750; C1769; C1894; C9113; G0257; G0378; J0282; J0456; J0461; J0696; J0713; J1170; J1265; J1610; J1644; J1815; J1940; J2150; J2250; J2270; J2543; J2704; J2765; J2930; J2997; J3010; J3370; J3475; J3480; J3490; J7030; J7050; J7060; P9016; P9045; P9047; Q4081; Q9963; Q9967; U0003; U0005